=== PATIENT | female | born 1960 | race Caucasian/White ===

== ENCOUNTER 2024-01-22 14:22 | Outpatient (AMB) | payer OTHER, SELFPAY ==
--- NOTE | 2024-01-22 14:32 | MHC.OFFVIS ---
Vital Signs 01/22/24 14:49 Height 5 ft 1 in Weight 210 lb BMI 39.7 BP 122/80 Blood Pressure Location Lt brachial Position Sitting Respiration 16 Pulse 91 Pulse Source Pulse Oximeter Pulse Oximetry (%) 95 Oxygen Delivery Method Room Air Intake Visit Reasons: Acute bilateral low back pain Intake Note: Patient comes in for initial visit was referred by Adriane Knapp primary care. Reports pain 3/10. Allergies propranolol Allergy (Verified 01/22/24 14:51) Swelling HPI Comments Details: Margie is very pleasant 63 years old female who presented in my office today with complain on pain in the lower back in the projection of the central the lumbar spine as well pain in the projection of the sacral bone. She reported that all this pains are started 2 months ago. She reported that the pain started because she fell on the ground. She reports that the pain is most severe when she is standing and flexing forward. She is able to sleep normally because of her pain she can do activities of daily living, she can take care of herself, she can function normally. She reports her pain today is 3/10. She reports her pain might be severe from time to time and reaching 7 and day 8/10. 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 She reports that weather changes in movements aggravate her pain. She reports pain less severe when she is horizontal in bed and sleeping. In terms of tissue damage he reports her pain as pulsing and pounding, jumping and shooting, pinching and crushing, tugging and wrenching, tingling and stinging, dull, hurting, heavy, tiring and exhausting, spreading and piercing sensation. She went for physical therapy and chiropractic manipulations to help her pain. She reports some plus-minus pain relief but it does not last long. She never had any injections for the pain. She had x-ray of the lumbar spine which is not available to me however according to the referral note she has compression fracture of L4 on this x-ray. She reports complains on headaches history of stroke 2 years ago history of gallstones and arthritis. Her past surgical history significant for tubal ligation nasal surgery and carpal tunnel for both hands. She stopped smoking cigarettes 35 years ago. She does not drink alcohol. She drinks 4-5 cups of coffee a day. She denies recreational drugs. [facility] Social History (Updated 01/22/24 @ 14:44 by Magda Fuentes) Alcohol intake: current Patient Tobacco Use Status: Never used Tobacco Review of Systems Const All systems reviewed & are unremarkable except as noted in HPI and below ENT Reports Normal hearing present Card Reports no additional complaints Resp Reports no additional complaints GI Reports no additional complaints Reports no additional complaints Musc Reports as per HPI Neuro Reports no additional complaints, Reports Normal hearing present, Denies Abnormal speech present, Denies confusion and Denies Sensory deficit (Neuro) Psych Reports no additional complaints and Denies confusion Endo Reports no additional complaints Physical Exam Vital Signs: Last Vital Signs Pulse 91 01/22/24 14:49 Resp 16 01/22/24 14:49 BP 122/80 01/22/24 14:49 Pulse Ox 95 01/22/24 14:49 Oxygen Delivery Method Room Air 01/22/24 14:49 BMI result Body Mass Index 39.7 Const General: no acute distress; No confusion Nutritional Appearance: obese morbidly obese Orientation/consciousness: patient oriented x3 and No confusion Eyes General: appearance normal, both eyes and all related structures Pupils: Equal, round and reactive pupils present EOM: EOMs intact bilaterally Neck Neck: Yes full ROM Chest Chest palpation & inspection: normal inspection of the chest Resp Effort & Inspection: normal respiratory effort, able to speak in complete sentences, normal respiratory pattern, no audible wheezes and no cough Cardio Jugular venous distension: no JVD GI Inspection: Yes normal to inspection Back/Spine/Pelvis Other: On physical exam she is able to flex herself backwards with minimal difficulty and she is able to flex forward however experience severe pain on flexing forward. Able to walk on bilateral tiptoes in bilateral heels demonstrating normal strength of bilateral lower extremities. Rolf test is positive on the bilateral, pelvic compression test is positive bilaterally, pelvic distraction test is positive bilaterally. Fourteen finger test is positive bilaterally. Percussion of the projection of L4 vertebral results in severe pain. Tenderness on palpation on the entire lumbar spine. Valsalva maneuver is positive on pain increase in lumbar spine.. Neuro General: patient oriented x3, gait normal and No confusion Cranial nerves: Yes CN's II-XII intact bilaterally, Yes Equal, round and reactive pupils present, Yes Normal hearing present and Yes Ability to bilaterally elevate shoulders present Speech: No Abnormal speech present Gait exam (Neuro): Normal gait present Motor exam (neuro): 5/5 motor strength present throughout Sensory Exam: No Sensory deficit (Neuro) Extrem General: No pedal edema Psych Speech and movement: Normal speech and movement present Affect: normal affect Attitude: cooperative Thought process: Normal thought process present Thought content: Normal thought content present Insight: Good insight present (Psych) Judgement: Good judgement present (Psych) Assessment & Plan Assessment & Plan (1) Compression fracture of L4 vertebra: Code(s): S32.040A - Wedge compression fracture of fourth lumbar vertebra, initial encounter for closed fracture Category: Medical (2) Sacroiliitis: Code(s): M46.1 - Sacroiliitis, not elsewhere classified Category: Medical (3) Sacroiliac joint dysfunction of both sides: Code(s): M53.3 - Sacrococcygeal disorders, not elsewhere classified Category: Medical Plan Because she has probably subacute fracture of the lumbar L4 vertebra I will send her for urgent MRI of the lumbar spine. If the MRI will demonstrate fresh edema I will schedule her for kyphoplasty L4. At the same time I will schedule the patient for bilateral diagnostic sacroiliac joint injection. If sacroiliac joint injection will help this patient I will discuss with her different ways to treat her sacroiliac joint pain. The patient has sacroiliac joint belt at home and on the advice of her chiropractor she started to wear it. I recommended her to wear it 247. I will see this patient either after the sacroiliac joint injection or we will invite her for kyphoplasty L4 if it is demonstrated able on the MRI. Orders: Orders MR lumbar spine wo con Today S32.040A - Wedge compression fracture of fourth lumbar vertebra, initial encounter for closed fracture Coding Level of Care Code New Pt Level 3 (72086) Diagnoses Compression fracture of L4 vertebra S32.040A Sacroiliitis M46.1 Sacroiliac joint dysfunction of both sides M53.3
[2024-01-22 14:49] VITALS: BP 122/80; PULSE 91; RESP 16; O2SAT 95; BMI 39.7
== END 2024-01-22 15:07 | disposition home or self-care (01) ==
PROVIDERS: PCP Nurse Practitioner Family; Visit Provider Anesthesiology
DX: S32.040A Wedge compression fracture of fourth lumbar vertebra, initial encounter for closed fracture (principal); M46.1 Sacroiliitis, not elsewhere classified; M53.3 Sacrococcygeal disorders, not elsewhere classified
CPT/HCPCS: 99203

== ENCOUNTER → 2024-01-22 14:22 | Outpatient (BNVA) | payer OTHER, SELFPAY | PROVIDERS: PCP Nurse Practitioner Family; Visit Provider Anesthesiology ==

== ENCOUNTER 2024-01-29 15:43 | Outpatient (REF) | payer OTHER, SELFPAY ==
--- NOTE | ~2024-01-29 | XR_ITS ---
EXAMINATION: PRE-MRI ORBITS CLINICAL INFORMATION: Pre-MRI screening. COMPARISON: None available. TECHNIQUE: 2 views of the orbits. FINDINGS: No radiopaque metallic foreign body appreciated in the region of the orbits. XR/XR pre mri screening IMPRESSION: No radiopaque metallic foreign body appreciated in the region of the orbits. This study was presented today 01/30/2024 for interpretation. Stat results provided at this time as requested by referring provider. Electronically signed by: Latisha Teague MD 01/30/2024 07:27 AM EDT RP
== END 2024-01-29 15:44 | disposition home or self-care (01) ==
LOC: HO.XRAY 15:43
PROVIDERS: PCP Nurse Practitioner Family; Visit Provider Anesthesiology
DX: Z13.89 Encounter for screening for other disorder (principal)

== ENCOUNTER 2024-02-04 14:06 | Outpatient (REF) | payer OTHER, SELFPAY ==
--- NOTE | ~2024-02-04 | MR_ITS ---
EXAMINATION: MR LUMBAR SPINE WITHOUT CONTRAST CLINICAL INFORMATION: Lumbar compression fracture COMPARISON: None available. TECHNIQUE: MRI of the lumbar spine was obtained using routine sequences without contrast. FINDINGS: Levoscoliosis of the lumbar spine. 5 mm of anterolisthesis at L4-L5. There is chronic mild compression of superior endplate of L4. The remainder of the vertebral body heights are maintained. Bone marrow is unremarkable in signal. The conus medullaris is normal in signal and terminates at the L1-L2 level. Prevertebral and paraspinal soft tissues are unremarkable. SIGNIFICANT FINDINGS BY LEVEL: T12-L1: No disc bulge or herniation. No significant spinal canal or foraminal stenosis. L1-L2: Mild disc bulge. No significant spinal canal or foraminal stenosis. L2-L3: Disc bulge and mild right facet arthropathy results in moderate-severe right foraminal stenosis and mild left foraminal stenosis. No significant spinal canal stenosis. L3-L4: Broad-based disc bulge results in severe right foraminal stenosis and mild left foraminal stenosis. No canal stenosis. L4-L5: Broad-based disc bulge, ligamentum flavum hypertrophy, and facet arthropathy results in mild canal stenosis, severe left foraminal stenosis, and moderate right foraminal stenosis. L5-S1: Broad-based disc bulge, facet arthropathy, and ligamentum flavum hypertrophy results in severe left foraminal stenosis. No significant canal or right foraminal stenosis. MR/MR lumbar spine wo con IMPRESSION: 1. Chronic mild compression of superior endplate of L4. 2. Multilevel degenerative disease of the lumbar spine with moderate-severe right foraminal stenosis at L2-L3 and L3-L4 and severe left foraminal stenosis at L4-L5 and L5-S1. Electronically signed by: Orquidea Yates MD 02/04/2024 05:39 PM [facility] [place]
== END 2024-02-04 14:07 | disposition home or self-care (01) ==
LOC: HO.MRI 14:06
PROVIDERS: PCP Nurse Practitioner Family; Visit Provider Anesthesiology
DX: S32.040A Wedge compression fracture of fourth lumbar vertebra, initial encounter for closed fracture (principal)
CPT/HCPCS: 72148

== ENCOUNTER 2024-02-14 14:23 | Outpatient (AMB) | payer OTHER, SELFPAY ==
--- NOTE | 2024-02-14 14:48 | A.OFFVIS_ITS ---
Vital Signs 02/14/24 14:54 Height 5 ft 1 in Weight 209 lb BMI 39.5 BP 132/72 Blood Pressure Location Lt brachial Position Sitting Respiration 16 Pulse 83 Pulse Source Pulse Oximeter Pulse Oximetry (%) 98 Oxygen Delivery Method Room Air Intake Visit Reasons: Discuss MRI Results Intake Note: Patient comes in to discuss MRI results. Reports pain /10. Allergies propranolol Allergy (Verified 02/14/24 14:54) Swelling HPI Comments Details: Margie is back in my office with the results of the MRI. The MRI dictated as below. There are multiple changes on the MRI including compression fracture of L4. The L4 compression fracture unfortunately is completely healed and unamenable to kyphoplasty. This is the area of her body where she complains on most of her pain. She was examined last time and sacroiliac joint injection was offered for her. She is scheduled for this procedure to diagnose or reject the idea that sacroiliac joint is the cause of her pain. There is also changes on L2-L3 and L3-L4 foramina is on the right were there is significant stenosis. We can try to perform transforaminal epidural steroid injections at those levels to alleviate the pain in the upper back with tingling sensation in the anterior thigh on the right. There is also possibility to try diagnose medial branch block L3-L4 dorsal ramus L5 and maybe this location will be proven to be her pain generators. [facility] Social History (Updated 01/22/24 @ 14:44 by Magda Fuentes) Alcohol intake: current Patient Tobacco Use Status: Never used Tobacco Review of Systems Const All systems reviewed & are unremarkable except as noted in HPI and below ENT Reports Normal hearing present Neuro Reports Normal hearing present, Denies Abnormal speech present, Denies confusion and Denies Sensory deficit (Neuro) Psych Denies confusion Physical Exam Vital Signs: Last Vital Signs Pulse 83 02/14/24 14:54 Resp 16 02/14/24 14:54 BP 132/72 02/14/24 14:54 Pulse Ox 98 02/14/24 14:54 Oxygen Delivery Method Room Air 02/14/24 14:54 BMI result Body Mass Index 39.5 Const General: no acute distress; No confusion Nutritional Appearance: obese morbidly obese Orientation/consciousness: patient oriented x3 and No confusion Eyes General: appearance normal, both eyes and all related structures Pupils: Equal, round and reactive pupils present EOM: EOMs intact bilaterally Neck Neck: Yes full ROM Chest Chest palpation & inspection: normal inspection of the chest Resp Effort & Inspection: normal respiratory effort, able to speak in complete sentences, normal respiratory pattern, no audible wheezes and no cough Cardio Jugular venous distension: no JVD GI Inspection: Yes normal to inspection Back/Spine/Pelvis Other: On physical exam she is able to flex herself backwards with minimal difficulty and she is able to flex forward however experience severe pain on flexing forward. Able to walk on bilateral tiptoes in bilateral heels demonstrating normal strength of bilateral lower extremities. Rolf test is positive on the bilateral, pelvic compression test is positive bilaterally, pelvic distraction test is positive bilaterally. Fourteen finger test is positive bilaterally. Percussion of the projection of L4 vertebral results in severe pain. Tenderness on palpation on the entire lumbar spine. Valsalva maneuver is positive on pain increase in lumbar spine.. Neuro General: patient oriented x3, gait normal and No confusion Cranial nerves: Yes CN's II-XII intact bilaterally, Yes Equal, round and reactive pupils present, Yes Normal hearing present and Yes Ability to bilaterally elevate shoulders present Speech: No Abnormal speech present Gait exam (Neuro): Normal gait present Motor exam (neuro): 5/5 motor strength present throughout Sensory Exam: No Sensory deficit (Neuro) Extrem General: No pedal edema Psych Speech and movement: Normal speech and movement present Affect: normal affect Attitude: cooperative Thought process: Normal thought process present Thought content: Normal thought content present Insight: Good insight present (Psych) Judgement: Good judgement present (Psych) Results Reviewed Results Reviewed: MR LUMBAR SPINE WITHOUT CONTRAST Levoscoliosis of the lumbar spine. 5 mm of anterolisthesis at L4-L5. There is chronic mild compression of superior endplate of L4. The remainder of the vertebral body heights are maintained. Bone marrow is unremarkable in signal. The conus medullaris is normal in signal and terminates at the L1-L2 level. Prevertebral and paraspinal soft tissues are unremarkable. SIGNIFICANT FINDINGS BY LEVEL: T12-L1: No disc bulge or herniation. No significant spinal canal or foraminal stenosis. L1-L2: Mild disc bulge. No significant spinal canal or foraminal stenosis. L2-L3: Disc bulge and mild right facet arthropathy results in moderate-severe right foraminal stenosis and mild left foraminal stenosis. No significant spinal canal stenosis. L3-L4: Broad-based disc bulge results in severe right foraminal stenosis and mild left foraminal stenosis. No canal stenosis. L4-L5: Broad-based disc bulge, ligamentum flavum hypertrophy, and facet arthropathy results in mild canal stenosis, severe left foraminal stenosis, and moderate right foraminal stenosis. L5-S1: Broad-based disc bulge, facet arthropathy, and ligamentum flavum hypertrophy results in severe left foraminal stenosis. No significant canal or right foraminal stenosis. IMPRESSION: 1. Chronic mild compression of superior endplate of L4. 2. Multilevel degenerative disease of the lumbar spine with moderate-severe right foraminal stenosis at L2-L3 and L3-L4 and severe left foraminal stenosis at L4-L5 and L5-S1. Assessment & Plan Assessment & Plan (1) Compression fracture of L4 vertebra: Code(s): S32.040A - Wedge compression fracture of fourth lumbar vertebra, initial encounter for closed fracture Category: Medical (2) Sacroiliitis: Code(s): M46.1 - Sacroiliitis, not elsewhere classified Category: Medical (3) Sacroiliac joint dysfunction of both sides: Code(s): M53.3 - Sacrococcygeal disorders, not elsewhere classified Category: Medical (4) Spondylosis of lumbar region without myelopathy or radiculopathy: Code(s): M47.816 - Spondylosis without myelopathy or radiculopathy, lumbar region Category: Medical (5) Disc degeneration, lumbar: Code(s): M51.369 - Other intervertebral disc degeneration, lumbar region without mention of lumbar back pain or lower extremity pain Category: Medical (6) Radiculopathy, lumbar region: Code(s): M54.16 - Radiculopathy, lumbar region Category: Medical (7) Chronic pain syndrome: Code(s): G89.4 - Chronic pain syndrome Category: Medical Plan She is already scheduled for bilateral diagnostic sacroiliac joint injection. If this will not help the axial low back pain next step will be diagnose medial branch block L3, L4, dorsal ramus L5. On the MRI as above there are some severe foraminal stenosis on the right L2-L3 L3-L4. She complains on tingling sensation on the right thigh. She complains on pain in the projection of the upper lumbar spine as well. This could be a target of the diagnostic as well as therapeutic transforaminal L2-L3/L3-L4 epidural steroid injection. Unfortunately the compression fracture of L4 can not be treated anymore with kyphoplasty because it is completely healed. If the injections as above will not be helpful the pain of the patient can be addressed with neuromodulation. Patient Instructions: I here by testify that I spent 32 minutes in conversation with this patient as well as evaluating her prior records and prior diagnostic studies as well as diogo luating images of the MRI as well as planning her care and organizing this note. Coding Level of Care Code Est Pt Level 4 (15978) Diagnoses Compression fracture of L4 vertebra S32.040A Sacroiliitis M46.1 Sacroiliac joint dysfunction of both sides M53.3 Spondylosis of lumbar region without myelopathy or radiculopathy M47.816 Disc degeneration, lumbar M51.369 Radiculopathy, lumbar region M54.16 Chronic pain syndrome G89.4
[2024-02-14 14:54] VITALS: BP 132/72; PULSE 83; RESP 16; O2SAT 98; BMI 39.5
== END 2024-02-14 16:07 | disposition home or self-care (01) ==
PROVIDERS: PCP Nurse Practitioner Family; Visit Provider Anesthesiology
DX: S32.040A Wedge compression fracture of fourth lumbar vertebra, initial encounter for closed fracture (principal); M46.1 Sacroiliitis, not elsewhere classified; M53.3 Sacrococcygeal disorders, not elsewhere classified; M47.816 Spondylosis without myelopathy or radiculopathy, lumbar region; M51.369 Other intervertebral disc degeneration, lumbar region without mention of lumbar back pain or lower extremity pain; M54.16 Radiculopathy, lumbar region; G89.4 Chronic pain syndrome
CPT/HCPCS: 99214

== ENCOUNTER 2024-03-12 06:04 | Outpatient (REF) | payer OTHER, SELFPAY ==
--- OUTSIDE RECORDS SUMMARY | 2024-03-13 18:22 | XMS_ITS | Continuity of Care Document ---
Author Organization [facility] Address [address] [place] [address] ve [address] [place] [address]- Care Team Providers Care Debeaker Name Role Phone Becca PIZARRO, Krama Bowen Primary Care Physician Encounter [facility] [place] Date(s): 02/16/24 - 02/23/[address] [place] [address]- Attending Physician: Leticia Trejo RD Encounter Type: Office Visit Allergies, Adverse Reactions, Alerts Substance Criticality Severity Reaction Reaction Severity Status propranolol facial swelling Ac tive acetaminophen-hydrocodo ne Angioedema Active Animal Dander Active Pollen Active Dust Active Medications aspirin 81 mg oral capsule 1 capsule = 81 mg, By Mouth, Every 24 hours, 0 Refills, Maintenance, 01/29/24 2:46:00 PM EDT, Partial fill upon patient request if the prescription is for a schedule II opioid drug. Start Date: 01/29/24 Status: Ordered Repeat number: 1 atorvastatin 20 mg oral tablet 1 tablet = 20 mg, By Mouth, Daily at bedtime, 0 Refills, Maintenance, 07/22/22 11:42:00 AM EDT, Partial fill upon patient request if the prescription is for a schedule II opioid drug. Start Date: 07/22/22 Status: Ordered Repeat number: 1 Biotin By Mouth, Daily, 0 Refills, Maintenance, 01/29/24 2:45:00 PM EDT, Partial fill upon patient requestif the prescription is for a schedule II opioid drug. Start Date: 01/29/24 Status: Ordered Repeat number: 1 Cetirizine 0 Refills, Maintenance, 07/05/22 2:28:00 PM EDT, Partial fill upon patient request if the prescription is for a schedule II opioid drug. Start Date: 07/05/22 Status: Ordered Repeat number: 1 Fluoxetine = 80 mg, By Mouth, Daily at bedtime, 0 Refills, Maintenance, 11/22/22 2:41:00 PM EDT, Partial fill upon patient request if the prescription is for a schedule II opioid drug. Start Date: 11/22/22 Status: Ordered Repeat number: 1 Multivitamin 0 Refills, Maintenance, 01/29/24 2:45:00 PM EDT, Partial fill upon patient request if the prescription is for a schedule II opioid drug. Start Date: 01/29/24 Status: Ordered Repeat number: 1 oxyCODONE 5 mg oral tablet 5 mg, By Mouth, Every 6 hours, PRN, # 12 tablet, Refills 0, Tot. Refills 0, Soft Stop, Pain , Moderate, 03/21/23 8:41:00 AM EST, Route to Pharmacy Electronically, [facility] #[id number], Partial fill upon patient request if the prescription is for a schedule II opioid drug., 158, cm, 03/21/23 6:10:00 EST, Height, 89.2, kg, 03/21/23 6:10:00 EST, Dry Weight Start Date: 03/21/23 Status: Ordered Quantity: 12.0 Unit: tablet Repeat number: 1 pantoprazole 40 mg oral delayed release tablet 1 tablet = 40 mg, By Mouth, 2 times a day, # 60 tablet, 3 Refills, Maintenance, 01/29/24 3:21:00 PMEDT, CR Tablet, 161, cm, 01/29/24 14:47:00 EDT, Height, 89.2, kg, 03/21/23 6:10:00 EST, Dry Weight Start Date: 01/29/24 Status: Ordered Quantity: 60.0 Unit: tablet Repeat number: 4 Suprep Bowel Prep Kit oral liquid 354 mL, By Mouth, Once, 177ml the night prior to colonoscopy and 177ml the morning of. Please follow split dose instructions on the box., # 354 mL, 0 Refills, Soft Stop, 07/22/22 11:56:00 AM EDT, [facility] #[id number], Partial fill upon patient request if the prescription is for a schedule II opioid drug., 354 mL By Mouth Once,Instr:177ml the night prior to colonoscopy and 177ml the morning of. Please follow split dose instructions on the box. Start Date: 07/22/22 Status: Ordered Quantity: 354.0 Unit: mL Repeat number: 1 Tylenol 8 Hour Geltab = 1,300 mg, By Mouth, Every 8 hours, 0 Refills, Maintenance, 01/29/24 2:47:00 PM EDT, Partial fill upon patient request if the prescription is for a schedule II opioid drug. Start Date: 01/29/24 Status: Ordered Repeat number: 1 Vitamin B12 1000 mcg oral tablet 1 tablet = 1,000 mcg, By Mouth, Daily, 0 Refills, Maintenance, 03/17/23 3:27:00 PM EST, Partial fill upon patient request if the prescription is for a schedule II opioid drug. Start Date: 03/17/23 Status: Ordered Repeat number: 1 Vitamin D3 1000 intl units oral tablet 1 tablet = 25 mcg, By Mouth, Daily, 0 Refills, Maintenance, 09/13/23 1:23:00 PM EDT, Partial fill upon patient request if the prescription is for a schedule II opioid drug. Start Date: 09/13/23 Status: Ordered Repeat number: 1 Zantac 0 Refills, Maintenance, 01/29/24 2:46:00 PM EDT, Partial fill upon patient request if the prescription is for a schedule II opioid drug. Start Date: 01/29/24 Status: Ordered Repeat number: 1 Problem List Condition Confirmation Course Effective Dates Status H ealth Status Informant Cholelithiasis Confirmed Active GERD (gastroesophageal reflux disease) Confirmed Active Hiatal hernia with GERD Confirmed Active History of stroke Confirmed Active Hyperlipidemia Confirmed Active Severe obesity (BMI 35.0-39.9) with comorbidity Confirmed Active Sleep apnea Confirmed Active Fatty liver Confirmed Active Vital Signs Most recent to oldest [Reference Range]: 1 Height 161 cm (02/16/24 1:46 PM) Weight 96.3 kg (02/16/24 1:46 PM) Body Mass Index [18.5-24.99 kg/m2] 37.15 kg/m2 *>HHI* (02/16/24 1:46 PM) Social History Social History Type Response Smoking Status Never (less than 100 in lifetime) entered on: 01/26/23 Sex Sex Representation Female (finding) Patient Care team information Care Team Personnel Name: Karma Hudson NP Position: S Outreach Member Role: PCP Address: [address] [place] [address] [address] [place] [address]- Telecom: Care Team Related Persons Name: DAYANA VEE Insurance Providers Guarantor name: VIJAYA GUY Health Plan Information #: 1 Payer: [facility] [employer] NON BHP HMO Member Number: [id number] Policy Number: NA Group Number: [id number] Health Plan Information #: 2 Payer: [facility] FF NON BHP HMO Member Number: [id number] Policy Number: NA Group Number: NA
== END 2024-03-12 06:05 | disposition home or self-care (01) ==
LOC: CF 06:04
PROVIDERS: Visit Provider Anesthesiology
DX: M46.1 Sacroiliitis, not elsewhere classified (principal); M53.3 Sacrococcygeal disorders, not elsewhere classified; M47.816 Spondylosis without myelopathy or radiculopathy, lumbar region; M51.369 Other intervertebral disc degeneration, lumbar region without mention of lumbar back pain or lower extremity pain; M54.16 Radiculopathy, lumbar region; G89.4 Chronic pain syndrome; S32.040A Wedge compression fracture of fourth lumbar vertebra, initial encounter for closed fracture; X58.XXXA Exposure to other specified factors, initial encounter; Y93.9 Activity, unspecified; Y92.9 Unspecified place or not applicable; Y99.9 Unspecified external cause status
CPT/HCPCS: 27096; J2003; J2795; Q9967

== ENCOUNTER 2024-03-12 07:01 | Outpatient (AMB) | payer OTHER, SELFPAY ==
[2024-03-12 07:13] VITALS: BP 108/76; PULSE 76; RESP 15; O2SAT 97
--- NOTE | 2024-03-12 07:13 | MHC.OFFVIS ---
Vital Signs 03/12/24 07:13 03/12/24 08:06 BP 108/76 118/76 Blood Pressure Location Lt brachial Lt brachial Position Sitting Sitting Respiration 15 16 Pulse 76 83 Pulse Source Pulse Oximeter Pulse Oximeter Pulse Oximetry (%) 97 96 Oxygen Delivery Method Room Air Room Air Intake Visit Reasons: BILATERAL DIAGNOSTIC SIJ INJECTIONS Allergies propranolol Allergy (Verified 03/12/24 07:14) Swelling Medication List - Last Reconciled 03/12/24 by Belinda Landers LPN aspirin (Adult Aspirin Regimen) 81 mg PO DAILY atorvastatin 80 mg PO DAILY famotidine (Zantac-360 (famotidine)) 20 mg PO DAILY oxycodone 5 mg PO QID PRN PFSH Social History (Updated 01/22/24 @ 14:44 by Magda Fuentes) Alcohol intake: current Patient Tobacco Use Status: Never used Tobacco Physical Exam Vital Signs: Last Vital Signs Pulse 76 03/12/24 07:13 Resp 15 03/12/24 07:13 BP 108/76 03/12/24 07:13 Pulse Ox 97 03/12/24 07:13 Oxygen Delivery Method Room Air 03/12/24 07:13 Assessment & Plan Assessment & Plan (1) Compression fracture of L4 vertebra: Code(s): S32.040A - Wedge compression fracture of fourth lumbar vertebra, initial encounter for closed fracture Category: Medical (2) Sacroiliitis: Code(s): M46.1 - Sacroiliitis, not elsewhere classified Category: Medical (3) Sacroiliac joint dysfunction of both sides: Code(s): M53.3 - Sacrococcygeal disorders, not elsewhere classified Category: Medical Plan: Bilateral diagnostic sacroiliac joint injection Informed consent was explained thoroughly to the patient.? All questions about benefits and risks for the procedure were answered. Patient came to the operating room and was positioned prone on the operating table with the pillow under the pelvis.? The lower back and buttocks of the patient were prepped with ChloraPrep prepped and draped with sterile utility towels.? Sterilely draped C-arm was brought over the operating field and sq picture of patient's pelvis was demonstrated on the screen.? For the right joint tilting C-arm contralateral to the site of the joint the most posterior portion of the joints was superimposed with anterior silhouette of the joint.? Skin was injected in the projection of the joint slightly medial to the location of the joint with 25 gauge 1/2 inch needle using local lidocaine 2% . After that 22 gauge 3 and 1/2 inch needle was driven to the right joint in tunnel vision fashion.? When needle entered the joint capsule injection of the contrast was performed demonstrating intra-articular and minimally periarticular spread of the contrast.? After that 5 cc. of ropivacaine 0.5% was injected into the right joint.? Upon completion of the injections needle was removed .? the procedure was repeated on the left side in mirroring fashion. Needle was removed and sterile dressing was applied. Sterile dressing was applied.? Upon completion of the injection patient was taken outside of the operating room to the recovery room where recovered uneventful (4) Spondylosis of lumbar region without myelopathy or radiculopathy: Code(s): M47.816 - Spondylosis without myelopathy or radiculopathy, lumbar region Category: Medical (5) Disc degeneration, lumbar: Code(s): M51.369 - Other intervertebral disc degeneration, lumbar region without mention of lumbar back pain or lower extremity pain Category: Medical (6) Radiculopathy, lumbar region: Code(s): M54.16 - Radiculopathy, lumbar region Category: Medical (7) Chronic pain syndrome: Code(s): G89.4 - Chronic pain syndrome Category: Medical Plan See as above Orders: Orders FL guidance in treatment room Today M53.3 - Sacrococcygeal disorders, not elsewhere classified Coding Level of Care Code Procedure Only Diagnoses Compression fracture of L4 vertebra S32.040A Sacroiliitis M46.1 Sacroiliac joint dysfunction of both sides M53.3 Spondylosis of lumbar region without myelopathy or radiculopathy M47.816 Disc degeneration, lumbar M51.369 Radiculopathy, lumbar region M54.16 Chronic pain syndrome G89.4
[2024-03-12 08:06] VITALS: BP 118/76; PULSE 83; RESP 16; O2SAT 96
== END 2024-03-12 08:02 | disposition home or self-care (01) ==
LOC: HO.PMCPRC 07:01
PROVIDERS: PCP Nurse Practitioner Family; Visit Provider Anesthesiology
DX: M46.1 Sacroiliitis, not elsewhere classified (principal); M53.3 Sacrococcygeal disorders, not elsewhere classified
CPT/HCPCS: 27096

== ENCOUNTER 2024-03-18 14:09 | Outpatient (AMB) | payer OTHER, SELFPAY ==
--- OUTSIDE RECORDS SUMMARY | 2024-03-18 14:12 | XMS_ITS | Continuity of Care Document ---
Author Organization [facility] Address [address] [place] [address] [address] [place] [address]- Care Team Providers Care Repairer Screen Crusher Name Role Phone Becca PIZARRO, Karma Bowen Primary Care Physician [phone] Encounter [facility] [place] Date(s): 02/16/24 - 03/17/[address] [place] [address]- Attending Physician: Raquel Forman Admitting Physician: AdmRaquel jo Referring Physician: Admtr [id number] Encounter Type: Triage Allergies, Adverse Reactions, Alerts Substance Criticality Severity Reaction Reaction Severity Status propranolol facial swelling Ac tive Animal Dander Active Pollen Active acetaminophen-hydrocodo ne Angioedema Active Dust Active Medications aspirin 81 mg [...] EST, Route to Pharmacy Electronically, [facility] #[id number], Partial fill upon patient request if the [...] Soft Stop, 07/22/22 11:56:00 AM EDT, [facility] #[id number], Partial fill upon patient request if the [...] apnea Confirmed Active Fatty liver Confirmed Active Social History Social History Type Response Smoking Status Never (less than 100 in lifetime) entered on: 01/26/23 Sex Sex Representation Female (finding) Patient Care team information Care Team Personnel Name: Karma Hudson NP Position: [facility] Outreach Member Role: PCP Address: [address] [place], [place] [address] [place] [address]- Telecom: Care Team Related Persons Name: DAYANA VEE Insurance Providers Guarantor name: IVJAYA [facility] Health Plan Information #: 1 Payer: [facility] NON P HMO Member Number: NA Policy Number: NA Group Number: NA
--- NOTE | 2024-03-18 14:24 | MHC.OFFVIS ---
Vital Signs 03/18/24 14:25 Height 5 ft 1 in Weight 209 lb BMI 39.5 BP 129/66 Blood Pressure Location Lt brachial Position Sitting Respiration 17 Pulse 87 Pulse Source Pulse Oximeter Pulse Oximetry (%) 96 Oxygen Delivery Method Room Air Intake Visit Reasons: BILATERAL DIAGNOSTICV SIJ INJECTIONS Allergies propranolol Allergy (Verified 03/18/24 14:27) Swelling Medication List - Last Reconciled 03/18/24 by Belinda Landers LPN aspirin (Adult Aspirin Regimen) 81 mg PO DAILY atorvastatin 80 mg PO DAILY famotidine (Zantac-360 (famotidine)) 20 mg PO DAILY HPI Comments Details: Margie is back in my office after diagnostic bilateral sacroiliac joint injection. She received diagnostic injection and reported no pain for the next 5-6 hours after the procedure. She reports improved mobility she was able to perform for job with better mobility and better activities of daily living. She is interested in performing bilateral therapeutic sacroiliac joint injection. Her primary care physician referred her for a study of bone density test. Osteoporosis is suspected. This should be taken into consideration with future sacroiliac joint injections however at this time I believe we can proceed with bilateral therapeutic sacroiliac joint injection. Results of the MRI: There are multiple changes on the MRI including compression fracture of L4. The L4 compression fracture unfortunately is completely healed and unamenable to kyphoplasty. This is the area of her body where she complains on most of her pain. She was examined last time and sacroiliac joint injection was offered for her. She is scheduled for this procedure to diagnose or reject the idea that sacroiliac joint is the cause of her pain. There is also changes on L2-L3 and L3-L4 foramina is on the right were there is significant stenosis. We can try to perform transforaminal epidural steroid injections at those levels to alleviate the pain in the upper back with tingling sensation in the anterior thigh on the right. There is also possibility to try diagnose medial branch block L3-L4 dorsal ramus L5 and maybe this location will be proven to be her pain generators. [facility] Social History (Updated 01/22/24 @ 14:44 by Magda Fuentes) Alcohol intake: current Patient Tobacco Use Status: Never used Tobacco Review of Systems Const All systems reviewed & are unremarkable except as noted in HPI and below ENT Reports Normal hearing present Neuro Reports Normal hearing present, Denies Abnormal speech present, Denies confusion and Denies Sensory deficit (Neuro) Psych Denies confusion Physical Exam Vital Signs: Last Vital Signs Pulse 87 03/18/24 14:25 Resp 17 03/18/24 14:25 BP 129/66 03/18/24 14:25 Pulse Ox 96 03/18/24 14:25 Oxygen Delivery Method Room Air 03/18/24 14:25 BMI result Body Mass Index 39.5 Const General: no acute distress; No confusion Nutritional Appearance: obese morbidly obese Orientation/consciousness: patient oriented x3 and No confusion Eyes General: appearance normal, both eyes and all related structures Pupils: Equal, round and reactive pupils present EOM: EOMs intact bilaterally Neck Neck: Yes full ROM Chest Chest palpation & inspection: normal inspection of the chest Resp Effort & Inspection: normal respiratory effort, able to speak in complete sentences, normal respiratory pattern, no audible wheezes and no cough Cardio Jugular venous distension: no JVD GI Inspection: Yes normal to inspection Back/Spine/Pelvis Other: On physical exam she is able to flex herself backwards with minimal difficulty and she is able to flex forward however experience severe pain on flexing forward. Able to walk on bilateral tiptoes in bilateral heels demonstrating normal strength of bilateral lower extremities. Rolf test is positive on the bilateral, pelvic compression test is positive bilaterally, pelvic distraction test is positive bilaterally. Fourteen finger test is positive bilaterally. Percussion of the projection of L4 vertebral results in severe pain. Tenderness on palpation on the entire lumbar spine. Valsalva maneuver is positive on pain increase in lumbar spine.. Neuro General: patient oriented x3, gait normal and No confusion Cranial nerves: Yes CN's II-XII intact bilaterally, Yes Equal, round and reactive pupils present, Yes Normal hearing present and Yes Ability to bilaterally elevate shoulders present Speech: No Abnormal speech present Gait exam (Neuro): Normal gait present Motor exam (neuro): 5/5 motor strength present throughout Sensory Exam: No Sensory deficit (Neuro) Extrem General: No pedal edema Psych Speech and movement: Normal speech and movement present Affect: normal affect Attitude: cooperative Thought process: Normal thought process present Thought content: Normal thought content present Insight: Good insight present (Psych) Judgement: Good judgement present (Psych) Results Reviewed Results Reviewed: MR LUMBAR SPINE WITHOUT CONTRAST Levoscoliosis of the lumbar spine. 5 mm of anterolisthesis at L4-L5. There is chronic mild compression of superior endplate of L4. The remainder of the vertebral body heights are maintained. Bone marrow is unremarkable in signal. The conus medullaris is normal in signal and terminates at the L1-L2 level. Prevertebral and paraspinal soft tissues are unremarkable. SIGNIFICANT FINDINGS BY LEVEL: T12-L1: No disc bulge or herniation. No significant spinal canal or foraminal stenosis. L1-L2: Mild disc bulge. No significant spinal canal or foraminal stenosis. L2-L3: Disc bulge and mild right facet arthropathy results in moderate-severe right foraminal stenosis and mild left foraminal stenosis. No significant spinal canal stenosis. L3-L4: Broad-based disc bulge results in severe right foraminal stenosis and mild left foraminal stenosis. No canal stenosis. L4-L5: Broad-based disc bulge, ligamentum flavum hypertrophy, and facet arthropathy results in mild canal stenosis, severe left foraminal stenosis, and moderate right foraminal stenosis. L5-S1: Broad-based disc bulge, facet arthropathy, and ligamentum flavum hypertrophy results in severe left foraminal stenosis. No significant canal or right foraminal stenosis. IMPRESSION: 1. Chronic mild compression of superior endplate of L4. 2. Multilevel degenerative disease of the lumbar spine with moderate-severe right foraminal stenosis at L2-L3 and L3-L4 and severe left foraminal stenosis at L4-L5 and L5-S1. Assessment & Plan Assessment & Plan (1) Compression fracture of L4 vertebra: Code(s): S32.040A - Wedge compression fracture of fourth lumbar vertebra, initial encounter for closed fracture Category: Medical (2) Sacroiliitis: Code(s): M46.1 - Sacroiliitis, not elsewhere classified Category: Medical (3) Sacroiliac joint dysfunction of both sides: Code(s): M53.3 - Sacrococcygeal disorders, not elsewhere classified Category: Medical (4) Spondylosis of lumbar region without myelopathy or radiculopathy: Code(s): M47.816 - Spondylosis without myelopathy or radiculopathy, lumbar region Category: Medical (5) Disc degeneration, lumbar: Code(s): M51.369 - Other intervertebral disc degeneration, lumbar region without mention of lumbar back pain or lower extremity pain Category: Medical (6) Radiculopathy, lumbar region: Code(s): M54.16 - Radiculopathy, lumbar region Category: Medical (7) Chronic pain syndrome: Code(s): G89.4 - Chronic pain syndrome Category: Medical Plan Very promising results of bilateral diagnostic sacroiliac joint injection. I can schedule her now for therapeutic sacroiliac joint injection and expect prolonged pain relief. However if pain relief will be not very long we should consider sacroiliac joint innervation stimulation curonix. 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 Diagnostic medial branch block can not be considered as well. On the MRI as above there are some severe foraminal stenosis on the right L2-L3 L3-L4. She complains on tingling sensation on the right thigh. She complains on pain in the projection of the upper lumbar spine as well. This could be a target of the diagnostic as well as therapeutic transforaminal L2-L3/L3-L4 epidural steroid injection. Unfortunately the compression fracture of L4 can not be treated anymore with kyphoplasty because it is completely healed. If the injections as above will not be helpful the pain of the patient can be addressed with neuromodulation. Patient Instructions: I here by testify that I spent 32 minutes in conversation with this patient as well as planning her care , evaluating her diagnostic studies and organizing this note. Coding Level of Care Code Est Pt Level 4 (47848) Diagnoses Compression fracture of L4 vertebra S32.040A Sacroiliitis M46.1 Sacroiliac joint dysfunction of both sides M53.3 Spondylosis of lumbar region without myelopathy or radiculopathy M47.816 Disc degeneration, lumbar M51.369 Radiculopathy, lumbar region M54.16 Chronic pain syndrome G89.4
[2024-03-18 14:25] VITALS: BP 129/66; PULSE 87; RESP 17; O2SAT 96; BMI 39.5
== END 2024-03-18 14:50 | disposition home or self-care (01) ==
PROVIDERS: PCP Nurse Practitioner Family; Visit Provider Anesthesiology
DX: M46.1 Sacroiliitis, not elsewhere classified (principal); M53.3 Sacrococcygeal disorders, not elsewhere classified; M47.816 Spondylosis without myelopathy or radiculopathy, lumbar region; S32.040A Wedge compression fracture of fourth lumbar vertebra, initial encounter for closed fracture; M51.369 Other intervertebral disc degeneration, lumbar region without mention of lumbar back pain or lower extremity pain; M54.16 Radiculopathy, lumbar region; G89.4 Chronic pain syndrome
CPT/HCPCS: 99214

== ENCOUNTER → 2024-03-18 14:09 | Outpatient (BNVA) | payer OTHER, SELFPAY | PROVIDERS: PCP Nurse Practitioner Family; Visit Provider Anesthesiology ==

== ENCOUNTER 2024-06-11 06:33 | Outpatient (REF) | payer OTHER, SELFPAY ==
--- NOTE | ~2024-06-11 | FL_ITS ---
EXAMINATION: FL GUIDANCE ONLY HISTORY: M46.1 - Sacroiliitis, not elsewhere classified COMPARISON: None available. TECHNIQUE: Fluoroscopy time: 0.2 minutes. Cumulative Dose: 4.56 mGy. DAP: 0.0710 mGym2 Images: 3. FINDINGS: Images demonstrate needles and contrast material in the regions of the bilateral sacroiliac joints. FL/FL guidance in treatment room IMPRESSION: Fluoroscopy during procedure. Please see procedure report for additional information. Electronically signed by: Osmin Hernandez MD 06/11/2024 03:56 PM EDT
--- OUTSIDE RECORDS SUMMARY | 2024-06-11 06:37 | XMS_ITS | Data Portability ---
Author Organization [facility] Address [address] [place] [address] Care Team Providers Care Dent Remover Name Role Phone TIANA MCNEIL Primary Care Provider TIANA MCNEIL Referring Provider SANDIE LUCERO Primary Care Provider Assessment Encounter Date Assessment Date Assessment LastModified by Organization Details LastModified Time 05/06/2021 05/06/2021 60 yo female with history of lap adjustable gastric band placement 2011 at [place], [place]. Patient is here today to discuss conversion to sleeve or bypass. Labs and imaging pending Nutrition referral Behavioral health referral [email or web address] Not available 05/06/2021 17:03:18 01/13/2022 01/13/2022 I evaluated the patient today. I explained her that these are not warts and they are calluses secondary to thinning of the forefoot fat pad and probably some mild deformities in the forefoot. She requested that these lesions be trimmed down and this was performed with a dermal curette to the level of healthy tissue without incident. Recommended that she utilize an emery board to maintain these from here out. She was also given metatarsal pads which should decrease pressure to the forefoot. She was shown where she can get these and how to place them. She can follow-up with me as needed. A total of _18____ minutes were spent in the care and management of the patient today, including face to face time as well as activities including but not limited to case review, counseling, education, care coordination and documentation. Time excludes separately reportable procedures. Portions of the note were dictated using [employer] software and errors may exist. Not available 01/20/2022 11:30:05 Plan of Treatment Reminders Order Date Submit Date Provider Last Modified By Organization Details Last Modified Time Details Appointments None recorded. Lab CBC 2021 022 [facility] Patient Reg, [place], [address], 20:27:10 CMP, serum or plasma 2021 022 [facility] Patient Reg, [place], [address], 21:01:16 lipid panel, serum 2021 022 [facility] Patient Reg, [place], [address], 21:01:17 25-hydroxyv itamin D2 + 25-hydroxyv itamin D3, QN, serum or plasma 2021 022 [facility] Patient Reg, [place], [id number], 21:10:43 TSH, serum, reflex free T4 2021 022 [facility] Patient Reg, [place], [id number], 21:01:17 CBC [address] Patient Reg, [place], [id number], 09:48:00 CMP, serum or plasma [address] Patient [place], [place], [id number], 2 09:48:01 PTH (parathyroi d hormone), intact, serum or plasma [address] Patient Reg, [place], [id number], 2 09:48:01 vitamin B1 (thiamine), blood [address] Patient Reg, [address] [place], [id number], 2 09:48:01 vitamin B12 + folate, serum or blood [address] Patient Reg, [address] [place], [address], 2 09:48:01 H pylori igg, serum [address] Patient Reg, [address] [place], [id number], 2 09:48:01 abo group + rh type, blood [address] Patient Reg, [address] [place] [address], [address], 2 09:48:01 lipid panel, serum [address] Patient Reg, [address] [place], [address], 2 09:48:02 antibody screen, serum or plasma [address] Patient Reg, [address] [place] [address], [address], 2 09:48:02 25-hydroxyv itamin D2 + 25-hydroxyv itamin D3, QN, serum or plasma [address] Patient Reg, [address] [place], [address], 2 09:48:02 HbA1c (hemoglobin A1c), blood 2021 022 [facility] Patient Reg, [address] [facility], [id number], 3 03:30:44 nicotine, quantitativ e, serum or plasma [address] Patient Reg, [address] [facility] [place], [address], 09:48:02 TSH, serum or plasma [address] Patient Reg, [address] [facility] [place], [address], 09:48:02 iron + total iron-bindin g capacity (TIBC), serum [address] Patient Reg, [address] [facility] [place], [address], 09:48:03 Referral web publisher referral - 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 [address] [facility], [address] [place], [address], 11:53:18 nutritionis t/dietitian referral [address] (Nutrition Services), [address] [place], [place] [address], [address], 15:21:08 behavioral health referral - [facility], [address] [place] [address] [place], [address], 2 07:49:41 Procedures colonoscopy screening (PROC) - due for colonoscopy 2021 022 [email or web address] Not available 3 13:41:40 Surgeries None recorded. Imaging DEXA, axial skeleton 2021 [facility] (Central Scheduling), [address] [place], [address], 2 14:34:00 RF, upper gastrointes tinal tract, w/ air, w/ contrast PO - s/p gastric band 2021 [facility] (Central Scheduling), [address] [place], [address], 2 12:20:29 US, abdomen, complete 2021 022 [facility] (Central Scheduling), [address] [place], [id number], 2 12:20:29 XR, chest, 2 view 2021 022 [facility] (Central Scheduling), [address] [place], [id number], 2 08:58:00 electrocard iogram - Preop bariatric surgery 2021 022 [facility] (Central Scheduling), [address] [place], [address], 2 08:58:00 Medication Orders None recorded. Patient TargetsNo targets recorded. Patient Instructions Encounter Date Encounter Id Patient Instructions Last Modified By Organization Details Last Modified Time 05/06/2021 [id number] Review nutrition packet provided today prior to meeting with RD and start implementing dietary and behavioral changes [email or web address] Not available 05/06/2021 15:17:58 Reviewed with patient both sleeve gastrectomy and gastric bypass surgery, as well as their relative risks and complication, all questions answered. Reviewed nutrition packet with patient (recommended measuring and weighing foods, logging meals and beverages, starting structured exercise routine, etc). New patient folder provided and reviewed with patient. Patient will be scheduled to see surgeon, nutrition and BH. Labs and imaging pending. Spent 60 min reviewing chart, labs, evaluating and educating patient, orders and coordinating follow-up care and testing. I spent a total of 60 minutes on the date of encounter, which included: Preparing to see the patient (e.g., review of test results) Obtaining and/or reviewing separately obtained history Performing a medically appropriate exam and/or evaluation Provided patient education Documenting clinical information in the health record Ordering medications, tests, procedures Referring and communicating with other healthcare professionals Independently interpreting results (not separately reported) Care coordination not separately reported [email or web address] Not available 05/06/2021 15:18:05 Reason for Referral 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 - has been painful Does not look like a plantars wart - but this is also on my differential Would like a consult for treatment options Referring Physician: Tiana Mcneil Family [facility], Encounter Date: 12/21/2021 Results Created Date Observation Date Name Description Value Unit Range Abnormal Flag Note LastModifiedBy Organization Detail LastModifiedTime 12/22/19 22 12/21/2021 COMPL ETE BLOOD COUNT NO DIFF white blood count 7.32 K/uL 3.5-11 .0 normal Not Available [facility] Department [address] [place], [address] 12/21/2021 20:27:10 12/22/19 22 12/21/2021 COMPL ETE BLOOD COUNT NO DIFF red blood count 4.36 M/uL 3.60-4 .80 normal Not Available [facility] Department [address] [place] [address], [id number] 12/21/2021 20:27:10 12/22/19 22 12/21/2021 COMPL ETE BLOOD COUNT NO DIFF hemoglobin 12.3 g/dL 12.0-1 6.0 normal Not Available [facility] Department [address] [place] [address], [id number] 12/21/2021 20:27:10 12/22/19 22 12/21/2021 COMPL ETE BLOOD COUNT NO DIFF hematocrit 38.3 % 36.0-4 8.0 normal Not Available [facility] Department [address] [place] [address], [id number] 12/21/2021 20:27:10 12/22/19 22 12/21/2021 COMPL ETE BLOOD COUNT NO DIFF mean corpuscular volume 87.8 fL 79.0-9 8.0 normal Not Available [facility] Department [address] [place] [address], [id number] 12/21/2021 20:27:10 12/22/19 22 12/21/2021 COMPL ETE BLOOD COUNT NO DIFF mean corpuscular hemoglobin 28.2 pg 25.4-3 4.6 normal Not Available [facility] Department [address] [place] [address], [id number] 12/21/2021 20:27:10 12/22/19 22 12/21/2021 COMPL ETE BLOOD COUNT NO DIFF mean corpuscular HGB conc 32.1 g/dL 30.0-3 6.0 normal Not Available [facility] Department [address] [place] [address], [id number] 12/21/2021 20:27:10 12/22/19 22 12/21/2021 COMPL ETE BLOOD COUNT NO DIFF red cell distribution width 12.3 % 11.5-1 4.5 normal Not Available [facility] Department [address] [place] [address], [id number] 12/21/2021 20:27:10 12/22/19 22 12/21/2021 COMPL ETE BLOOD COUNT NO DIFF platelet count 404 K/uL 150-40 0 high Not Available [facility] Department [address] [place], [address] 12/21/2021 20:27:10 12/22/19 22 12/21/2021 COMPL ETE BLOOD COUNT NO DIFF neutrophils absolute auto 3.59 K/uL 1.5-7. 5 normal Cauti on: Inter preta tion of ANC resul ts witho ut inclu aidee of the WBC diffe renti al resul ts may lead to dominick eous diagn osis; for examp le, jak ng myelo proli ferat margareth or lymph oprol ifera tive disor ders. Not Available [facility] Department [address] [place], [address] 12/21/2021 20:27:10 12/22/19 22 12/21/2021 COMPR EHENS MARGARETH MET. PANEL sodium 136 mmol/ L 136-14 5 normal Not Available [facility] Department [address] [place], [address] 12/21/2021 21:01:16 12/22/19 22 12/21/2021 COMPR EHENS MARGARETH MET. PANEL potassium 4.8 mmol/ L 3.5-5. 1 normal Not Available [facility] Department [address] [place] [address], [id number] 12/21/2021 21:01:16 12/22/19 22 12/21/2021 COMPR EHENS MARGARETH MET. PANEL chloride 98 mmol/ L 98-107 normal Not Available [facility] Department [address] [place], [address] 12/21/2021 21:01:16 12/22/19 22 12/21/2021 COMPR EHENS MARGARETH MET. PANEL carbon dioxide 26.5 mmol/ L 22-29 normal Not Available [facility] Department [address] [place], [address] 12/21/2021 21:01:16 12/22/19 22 12/21/2021 COMPR EHENS MARGARETH MET. PANEL anion gap 16 mmol/ L 10-20 normal Not Available [facility] Department [address] [place] [address], [address] 12/21/2021 21:01:16 12/22/19 22 12/21/2021 COMPR EHENS MARGARETH MET. PANEL blood urea nitrogen 13 mg/dL 8-23 normal Not Available [facility] Department [address] [place], [address] 12/21/2021 21:01:16 12/22/19 22 12/21/2021 COMPR EHENS MARGARETH MET. PANEL creatinine 0.72 mg/dL 0.50-0 .90 normal Not Available [facility] Department [address] [place], [address] 12/21/2021 21:01:16 12/22/19 22 12/21/2021 COMPR EHENS MARGARETH MET. PANEL glomerular filtration rate > 90 GFR Value : ml/mi n/1.7 3 squar e meter s * If patie nt is Afric an-Am cj n, multi ply resul t by 1.159 Chron ic Kidne y Disea se is defin ed as less than 60 ml/mi n/1.7 3 squar e meter s. Kidne y failu re is less than 15 ml/mi n/1.7 3 squar e meter s Test is not perfo rmed on patie nts under the age of 18 Not Available [facility] Department [address] [place], [address] 12/21/2021 21:01:16 12/22/19 22 12/21/2021 COMPR EHENS MARGARETH MET. PANEL glucose 77 mg/dL 82-115 low Not Available [facility] Department [address] [place], [address] 12/21/2021 21:01:16 12/22/19 22 12/21/2021 COMPR EHENS MARGARETH MET. PANEL calcium 9.4 mg/dL 8.8-10 .2 normal Not Available [facility] Department [address] [place], [address] 12/21/2021 21:01:16 12/22/19 22 12/21/2021 COMPR EHENS MARGARETH MET. PANEL bilirubin total 0.3 mg/dL 0.2-1. 2 normal Not Available [facility] Department [address] [place], [address] 12/21/2021 21:01:16 12/22/19 22 12/21/2021 COMPR EHENS MARGARETH MET. PANEL aspartate amino transferase 18 U/L 5-32 normal Not Available [facility] Department [address] [place], [address] 12/21/2021 21:01:16 12/22/19 22 12/21/2021 COMPR EHENS MARGARETH MET. PANEL alanine aminotransfe rase 15 U/L 5-33 normal Not Available [facility] Department [address] [place], [address] 12/21/2021 21:01:16 12/22/19 22 12/21/2021 COMPR EHENS MARGARETH MET. PANEL total protein 6.6 g/dL 6.4-8. 3 normal Not Available [facility] Department [address] [place], [address] 12/21/2021 21:01:16 12/22/19 22 12/21/2021 COMPR EHENS MARGARETH MET. PANEL albumin level 4.2 g/dL 3.5-5. 2 normal Not Available [facility] Department [address] [place], [address] 12/21/2021 21:01:16 12/22/19 22 12/21/2021 COMPR EHENS MARGARETH MET. PANEL globulin 2.4 gm/dL 2.0-3. 5 normal Not Available [facility] Department [address] [place], [address] 12/21/2021 21:01:16 12/22/19 22 12/21/2021 COMPR EHENS MARGARETH MET. PANEL albumin globulin ratio 1.8 % 1.1-2. 5 normal Not Available [facility] Department [address] [place], [address] 12/21/2021 21:01:16 12/22/19 22 12/21/2021 COMPR EHENS MARGARETH MET. PANEL alkaline phosphatase 74 U/L 35-104 normal Not Available [facility] Department [address] [place], [address] 12/21/2021 21:01:16 12/22/19 22 12/21/2021 LIPID PANEL WITH REFLE X triglyceride s w/ reflex LDL 86 mg/dL 30-150 normal Refer ence Range s: <150 mg/dl Yareli l 150-1 99 mg/dl Borde rline High 200-4 99 mg/dl High >500 mg/dl Very High Not Available [facility] Department [address] [place], [address] 12/21/2021 21:01:12/22/19 22 12/21/2021 LIPID PANEL WITH REFLE X cholesterol 262 mg/dL 100-20 0 high Not Available [facility] Department [address] [place], [address] 12/21/2021 21:01:17 12/22/19 22 12/21/2021 LIPID PANEL WITH REFLE X LDL cholesterol calculated 171.9 mg/dL 0-100 high Natio nal Danette stero l Educa tion Progr am sugge sts the follo wing refer ence range : Optim al <100 mg/dL Near optim al/ab ove optim al 100-1 29 mg/dL Borde rline high 130-1 59 mg/dL High 160-1 89 mg/dL Very high >190 mg/dL Not Available [facility] Department [address] [place], [address] 12/21/2021 21:01:12/22/19 22 12/21/2021 LIPID PANEL WITH REFLE X HDL cholesterol 72.9 mg/dL 40-60 high Major risk facto r for CHD: <40 mg/dL Negat margareth risk facto r for CHD: >=60 mg/dL Not Available [facility] Department [address] [place], [address] 12/21/2021 21:01:12/22/19 22 12/21/2021 LIPID PANEL WITH REFLE X chol HDL ratio 3.59 Risk CHOL/ HDL CHOL/ HDL Ratio Male Femal e 1/2 AVERA GE 3.43 3.27 AVERA GE 4.97 4.44 2 X AVERA GE 9.55 7.05 3 X AVERA GE 23.39 11.04 Not Available [facility] Department [address] [place], [address] 12/21/2021 21:01:12/22/19 22 12/21/2021 TSH REFLE X FREE T4 TSH reflex free T4 2.03 uIU/m L 0.27-4 .20 normal Not Available [facility] Department [address] [place], [address] 12/21/2021 21:01:12/22/19 22 12/21/2021 VITAM IN D 25-OH TOTAL vitamin D 25-oh total 37.0 NG/mL Refer ence Range : Defic ient <20 ng/mL Insuf ficie nt 21-29 ng/mL Suffi cient >30 ng/mL Not Available [facility] Department [address] [facility], [place], [address] 12/21/2021 21:10:43 01/13/20 audio gram No observ ation record ed. [email or web address] Not Available 2021 13:50:42 01/19/2001/18/2022 DEXA, [facility] skele [facility] [address] 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 Orderi ng Physic georgina: Tiana jimenez Date of Servic e: Proced ure(s) : XR DEXA axial skelet on Access ion Number (s): [id number] H cc: Tiana Cavazos er ====== ====== ====== ====== ====== ====== ====== ====== ====== ====== ===== Bone Densit y Report ====== ====== ====== ====== ====== ====== ====== ====== ====== ====== ===== Name: MARGIE CAREY ID: [id number] Age: 61 Sex: Female Ethnic ity: White Date of : 1960 ------ ------ ------ ------ ------ ------ ------ ------ ------ ------ ----- Indica tion: postme nopaus al; screen ing for osteop orosis ; parent al hip fractu re; Referr ing Provid er: ALONZO JIMENEZ, TIANA PIZARRO Study: Bone densit ometry was [facility] med. Exam Date: 2021 Access ion number : [id number] Bone Densit y: ------ ------ ------ ------ ------ ------ ------ ------ ------ ------ ----- Region BMD T-scor e Z-scor e Classi ficati on ------ ------ ------ ------ ------ ------ ------ ------ ------ ------ ----- AP Spine (L1-L4 ) 0.899 -1.3 0.2 Osteop enia Femora l Neck (Left) 0.687 -1.5 -0.1 Osteop enia Total Hip (Left) 0.870 -0.6 0.4 Normal Femora l Neck (Right ) 0.696 -1.4 0.0 Osteop enia Total Hip (Right ) 0.869 -0.6 0.4 Normal Total Hip Mean 0.870 -0.6 0.4 Normal ------ ------ ------ ------ ------ ------ ------ ------ ------ ------ ----- World Health Organi zation criter ia for BMD impres aidee classi fy patien ts as: Normal (T-sco re at or above -1.0), Osteop enia (T-sco re betwee n -1.0 and -2.5), or Osteop orosis (T-sco re at or below -2.5). 10-yea r Fractu re Risk(1 ): ------ ------ ------ ------ ------ ------ ------ ------ ------ ------ ----- Major Osteop orotic Fractu re 15% Hip Fractu re 0.6% ------ ------ ------ ------ ------ ------ ------ ------ ------ ------ ----- Report ed Risk Factor s: [place] (Shaylee serra), Neck BMD=0. 687, BMI=33 .3, parent al fractu re (1) FRAX(R ) Versmarcelino n 3.08. Fractu re probab ility calcul ated for an untrea liv granados. Fractu re probab ility may be lower if the patien t has receiv ed treatm ent. Impres aidee: The patien t has osteop enia (low bone mass), based on the Left Femora l Neck T-scor e. The patien t has an estima liv ten-ye ar risk of hip fractu re of 0.6% and an estima liv ten-ye ar risk of major fractu re of 15%, based on the WHO FRAX algori thm. The patien t has risk factor s, includ ing: parent al hip fractu re. Discus aidee: BONE DENSIT Y IS LOW AT ONE OR MORE SKELET AL SITES. This patien t's lowest T-scor e is low at one or more skelet al sites. It meets the World Health Organi zation 's (WHO) criter ia for i??low bone massi? ? (T-sco re betwee n -1.0 and -2.5). The olgaen t's 10-yea r risk of fractu re as calcul ated by FRAX is less than the thresh old where pharma cologi rey therap y is recomm ended by the Nation al Osteop orosis Founda tion (NOF). Howeve r, all treatm ent decisi ons requir e clinic al judgme nt and consid eratio n of indivi dual patien t factor s, includ ing patien t prefer ences, comorb iditie s, previo us drug use, risk factor s not captur ed in the FRAX model (e.g., frailt y, falls, vitami n D defici ency, increa sed bone turnov er, interv al signif icant declin e in bone densit y) and possib le under or overes timati on of fractu re risk by FRAX. The patien t should follow a health ful lifest yle (good nutrit ion with adequa te calciu m and vitami n D, and approp riate weight -beari ng exerci se). Follow -Up: As clinic juventino peck. Report ed by: Dr. Baldo parada on 2021 2:13:0 0 PM. Dictat ed By: Baldo parada Signed By: [id number] DD/DT: 0000 TD/TT: Transc riptio nist: [email or web address] [facility] [address] [place] [address], [id number], 01/24/2022 09:44:33 Result Notes None recorded. Problems Name Problem SNOMED Code Status Onset Date Resolution Date Notes Provider Name and Address Organization Details Recorded Time Laparosc opic adjustab le gastric banding Active 2021 2011 [facility] ZANA HELM [address] [place] [address], [phone] , [facility] 2 13:24:17 Morbid obesity 785154910 Completed 202112/15/2021 KATHERIN Childress, [facility] 2 14:26:47 Chronic arthriti s [id number] Active 2021 KATHERIN Childress, [facility] 2 14:27:15 Acid reflux 377446104 Active 2021 KATHERIN Childress, [facility] 14:27:30 Problem Notes None recorded. Procedures Surgical History Date Name Laterality Status Provider Name and Address Organization Details Recorded Time 01/14/20 22 Diabetic Routine Foot Care completed GENESIS CULLEN DPM [address] [place] [address], [phone], [facility] 01/20/2022 11:28:40 12/03/19 20 Date of Last Mammogram completed Natanael Marie CNA [facility] 12/15/2021 14:25:00 06/02/19 17 Date of Last Pap Smear completed Natanael Marie CNA [facility] 12/15/2021 14:25:07 02/02/20 13 Colorectal ca screen doc rev completed Natanael Marie CNA [facility] 12/15/2021 14:26:08 04/03/19 11 laparoscopic adjustable gastric banding completed ZANA HELM [address] [place] [address], [phone], [facility] 05/04/2021 13:22:32 04/03/19 11 esophageal hiatus hernia repair completed ZANA HELM [address] [place] [address], [phone], [facility] 05/04/2021 13:23:17 Imaging Results Imaging Date Name Status LastModified by Organiz ation Details LastModified Time 01/12/2022 audiogram completed [email or web address] Information no t available 01/26/2022 13:50:42 01/18/2022 DEXA, axial skeleton completed gregory [facility] [address] [place] [address], [id number], 01/24/2022 09:44:33 Procedure Notes None recorded. Medical Equipment None Reported. Allergies Allergen ID Allergen Name Allergen Category Reaction Reaction Severity Criticality Documentation Date Start Date Code Code System Note Provider Name and Address Organization Details Recorded Time 715306 propranol ol medicatio n facial swelling severe high 05/06/2021 [address] [facility] 14:13:48 951541 acetamino phen / hydrocodo ne medicatio n angioedem a Not available [facility] 12/15/2021 17889 [address] [facility] 2 14:13:37 Medications Name Sig Start Date Stop Date Status Note LastModified by Organization Details LastModified Time flowflex covid-19 antigen home test kit active Not Available Not Available Not Available fluoxetine 40 mg capsule active Not Available Not Available N ot Available atorvastatin 80 mg tablet Take 1 tablet every day by oral route. active Not Available Not Available No t Available estradiol 0.01% (0.1 mg/gram) vaginal cream active Not Available Not Availabl e Not Available magnesium active Not Available Not Sandra ilable Not Available calcium carbonate active Not Available Not Available No t Available potassium acetate active Not Available Not Available Not Available aspirin 81mg active Not Available Not Avail able Not Available vitamin E active Not Available Not Sandra ilable Not Available fluoxetine active Not Available Not Av ailable Not Available biotin active Not Available Not Availa ble Not Available Glucosamine active Not Available Not A vailable Not Available Vitamin D3 active Not Available Not Av ailable Not Available cetirizine 10 mg capsule Take by oral route. active Not Available Not Available No t Available B12 active Not Available Not Availa ble Not Available multivit 37-iron 27 mg-Lmfolate 1.13 mg-algaloil,so y 581.92 mg capsule Take by oral route. active Not Available Not Available No t Available Vitals Date Recorded Body weight Heart rate Oxygen saturation Oxygen saturation in Arterial blood by Pulse oximetry Body height Body mass index (BMI) Systolic blood pressure Diastolic blood pressure Provider Name and Address Organization Details Last Updated DateTime 2 06205.2 1 g 70 /min 97 % 97 % 154.94 cm 35.4 kg/m2 96 mm[Hg] 68 mm[Hg] Anne Blair MA [facility] 2 13:57:39 Date Recorded Body height Body height Body mass index (BMI) Body weight Heart rate Heart rate Systolic blood pressure Diastolic blood pressure Systolic blood pressure Diastolic blood pressure Provider Name and Address Organization Details Last Updated DateTime 2 154.94 cm 156.21 cm 34.6 kg/m2 75063.5 g 72 /min 73 /min 136 mm[Hg] 92 mm[Hg] 129 mm[Hg] 89 mm[Hg] Natanael Marie CNA [facility] 16:30:35 Social History Question Answer Notes LastModified by Organizat ion Details LastModified Time Tobacco Smoking Status Former Smoker KATHERIN Childress [facility] 12/21/2021 16:24:41 What Is Your Level Of Alcohol Consumption? None Information not available 12/21/2021 What Was The Date Of Your Most Recent Tobacco Screening? 12/21/2021 Information not available 12/21/2021 Do You Use Any Illicit Or Recreational Drugs? No Information not available 12/21/2021 Sex: Unknown Functional Status None recorded. Mental Status None recorded. Family History Nothing Reported. Medical History No medical history recorded. Gynecological History Statement/Question Response Date of Last Pap Smear 06/01/2016 Date of Last Mammogram 12/03/2019 Obstetrics History GPAL:G 0 P 0 0 0 0 Immunizations Vaccine Type Date Status Note Provider Name and Address Organization Details Recorded Time Influenza, split virus, quadrivalent, preservative 01/16/[address] [facility] 06/30/2022 13:51:04 COVID-19, mRNA, LNP-S, PF, 100 mcg/0.5mL dose or 50 mcg/0.25mL dose 07/30/19 21 completed Nely Katelynderrell bruno [facility] 06/30/2022 13:51:04 COVID-19, mRNA, LNP-S, PF, 100 mcg/0.5mL dose or 50 mcg/0.25mL dose 08/29/19 21 completed Nely Quiñonestederrell bruno [facility] 06/30/2022 13:51:04 Tdap 12/24/19 [address] [facility] 12/15/2021 14:19:13 tetanus toxoid, unspecified formulation 12/04/19 20 completed Nely Quiñonestederrell bruno [facility] 06/30/2022 13:51:04 Td (adult), 5 Lf tetanus toxoid, preservative free, adsorbed 12/04/19 20 completed Nely bruno, [facility] 06/30/2022 13:51:04 Influenza, split virus, quadrivalent, PF 12/22/19 completed Theo Obrien MD [address] [place] [address], [phone], [facility] 12/25/2021 08:50:00 zoster recombinant 12/22/19 22 cancelled patient objection TIANA MCNEIL NP [address] [place] [address], [phone], [facility] 12/21/2021 17:18:26 Pneumococcal conjugate PCV 13 12/22/19 completed Theo Obrien MD [address] [place] [address], [phone], [facility] 12/25/2021 08:50:00 Past Encounters Encounter ID Performer Location Encounter Start Date Encounter Closed Date Diagnosis/Indication Diagnosis SNOMED-CT Code Diagnosis ICD10 Code Diagnosis Note [id number] ZANA Echols Occupatio [facility] [address] [place] [address] 08/30/2018 15:25:48 08/30/2018 15:59:50 [id number] ZANA HELM [facility] [address],[place] [address] 05/06/2021 13:42:53 05/06/2021 15:28:32 History of laparoscopic adjustable gastric banding 380787308 Z98.84 s/p lap adjustable gastric band Obesity 522513212 E66.9 BMI: 35.4 Pre-surger y evaluation 723348448 Z01.818 conversion from gastric band to sleeve or bypass Body mass index 30+ - obesity 731272481 Z68.35 BMI: 35.4 [id number] Theo Obrien MD [address] [address] 12/21/2021 16:12:58 12/21/2021 18:33:00 Adult health examination 776467739 Z00.00 Patient should discuss medical decisions with Health Care Proxy. Recommende d screenings included colonoscop y screening age 45, earlier based on family history/ri sk factors; annual mammogram age 50, unless earlier based on risk factors and discussion with patient; bone density age 65, unless risk factors for earlier screening; one time screen for hepatitis C if born between 4025-2658 or has risk factors. Recommend annual low-dose CT scan screening for high-risk individual s ages 50 to 80 years with 20 pack-year history of smoking and current smoker or quit within past 15 years. Reviewed vaccines and current recommenda tions. Basic health topics include aerobic exercise, importance of healthy/ba lanced diet and minimizing caffeine and alcohol. Administra tion of pneumococcal vaccine 16220831 Z23 If PCV15 is used, this should be followed by a dose of PPSV23 one year later. The minimum interval is 8 weeks and can be considered in adults with an immunocomp romising condition, cochlear implant, or cerebrospi nal fluid leak. If PCV20 is used, a dose of PPSV23 is NOT indicated. Administra tion of diphtheria and tetanus vaccine 58808243 Z23 UTD - 2020 Screening mammography 24 029565 Z12.31 Had one recently - 11/19/21 results: Benign finding.DE NSITY: ? ? There are scattered fibrogland ular densities. Screening for malignant neoplasm of colon 741124611 Z12.11 will order today Decreased estrogen level 792765200 E28.39 order dexa scan today Screening for malignant neoplasm of cervix 195783301 Z12.4 UTD - 2 years ago - will send the results from her prior PCP office Viral screening 56137755 4 Z11.59 One time screen based on date between 2406-9355 and/or high risk for disease. Varicella vaccination 68 360072 Z23 education provided - will check her insurance and pharmacy Influenza vaccine needed 7984914668 106 Z23 Pt presents for influenza vaccinatio n. Patient screened with questions from 7988-6837 Flu protocol. Discussed importance of influenza vaccine due to the patient's risk of contractin g the disease. A handout was offered to enhance understand ing of the effects and side effects of the vaccine. Dionte's n euroma of left foot 7822102741 13868 G57.62 left foot - thought it was a plantars wart - diff DX - [facility] referral for treatment options Osteopenia 783912207 M85 .80 will have a dexa scan ordered and check vit D levels Unintentio nal weight gain 0216392978 21230 R63.5 Thyroid labs today Hearing loss 02783732 H9 1.93 needs a follow up for hearing loss due to noise exposureLe ft ear is mostly affected - but would like to have both tested [id number] GENESIS CULLEN DPM [facility] [place] [address] [place] [address] 01/13/2022 15:23:43 01/13/2022 15:53:04 Willis - lesion 827740666 L84 Health Concerns Section Related Observation LastModified by Organization Detai ls LastModified Time None Recorded Concern Status LastModified by Organization Details LastModified Time None Recorded Advance Directives Directive None Recorded Payers Encounter Date Sequence Insurance Name Policy Number Policy Piper Covered Member ID Piper Member ID Guarantor Name 05/06/2021 1 [employer] [facility] Margie Tarbox [id number] Margie Tarbox 12/21/2021 1 [facility] [place] [place] [id number] Margie Tarbox [id number] Margie Tarbox 01/13/2022 1 [facility] [place] [place] [id number] Margie Tarbox [id number] Margie Tarbox Notes Date Note Type Note Provider Name and Address Organization Details Recorded Time 05/06/19 22 text/ht ml 60 yo female with history of lap adjustable gastric band placement 2010 at [place], [place]. Patient is here today to discuss conversion to sleeve or bypass. Margie preop weight was 266 lbs, post-op shirin 136 lbs, for a total weight loss of 130 lbs She states postoperatively there were no complications. Margie states they also repaired a softball size hernia at the same time. In May 2020 she did develop reflux, severe esophagitis and regurgitation resulting in aspiration pneumonia. Her abd CT showed significant dilated esophagus. All the fluid was removed from her band and a repeat CT in June was normal and her symptoms had resolved. She underwent another band adjustment recently in April and currently has 6.75 mL of saline in the band.and reHow much did she have in the band when she aspiratedAt this time she is not experiencing reflux, dysphagia or abdominal pain. She is frustrated with her repetitive fluctuations weight . She has chronic lower back, hip, knee and feet pain.Margie lives in [place], [place] with her partner of 2 years, who is supportive of her decision. She is treated for anxiety and depression by her PCP. Margie denies history of inpatient behavioralhealth services, suicidal ideation/attempts, diagnosed eating disorder or substance use disorder. PMH:Seen 2020 for severe esophagitis, regurgitation and resultant aspiration pneumonia.May 2020 - CT scan showed dilated esophagus and gastric pouchMarch 2020 - CT scan showed resolutionApril 0221: UGI showed band in proper position and no reflux Patient confirmed they received COVID vaccineMedication list reviewed with patient. SURGICAL HX:Lap adjustable gastric bandtubal ligation SOCIAL HX:Smokes: noneETOH: noneRecreational drug use: none FHX:updated in patient's chart. ZANA HELM [address] [place] [address], [phone], [facility] 05/06/2021 17:04:13 12/22/19 22 text/ht ml Margie is here today for a CPECC: Patient Active Problem ListAcute CVA (cerebrovascular accident)ArthritisColor vision deficiencyDepressionEsophageal refluxDupuytren's contractureGeneralized osteoarthritis of handIrritable bowel syndrome with constipationMigraine headachePelvic floor dysfunctionSleep apneaSpondylolisthesis, acquiredTrigger middle finger of right handprolapse of female pelvic organsUrinary incontinenceHistory of adjustable gastric bandingCoccyx pain Immunizations Tetanus - 2o20 Influenza: will administer today Covid: x 3 Pneumonia: will Shingles: Education providedPap: had one 2 years agoMammogram: a couple months ago - had a lipoma but no cancer - 11/19/21 results: Benign finding.DENSITY: ? ? There are scattered fibroglandular densities.Colonoscopy: follow up - has been 11 years - will order todaySleep: sleeps wellDiet: no restrictionsExercise: walkingSmoker: no - quit at 32 years oldAlcohol: on occasionDrug use: noAnxiety/depression: fluoxetine works wellBladder/Bowel changes: bladder - has leakage - follows a doctor for pessary - is due to have a revisionSkin/mole changes: left foot has a plantars wart - or a neuroma Theo Obrien MD [address] [place], [phone], [facility] 12/25/2021 08:50:03 01/14/20 22 text/ht ml 61-year-old female seen today in clinic for evaluation of left foot lesions that are painful. She thinks they are either calluses or warts but does not know for sure. She is try to self manage these however they keep coming back and painful. Denies any recent foot or ankle trauma. GENESIS CULLEN DPM [address] [facility] [place], [id number], [facility] 01/20/2022 11:30:11 OBGyn Episode No OBEpisode recorded.
--- OUTSIDE RECORDS SUMMARY | 2024-06-11 06:37 | XMS_ITS | Data Portability ---
Author Organization [facility], [employer] [facility] Address [address] [place] [address] Care Team Providers Care Mechanical Engineering Specialist Name Role Phone TIANA MCNEIL Primary Care Provider TNOIE MCNEILISTY Referring Provider [phone] Assessment No assessment recorded. Plan of Treatment Reminders Order Date Submit Date Provider Last Modified By Organization Details Last Modified Time Details Appointments None recorde d. Lab drug screen, 5 drugs, urine 019 08/31/[address], [address] [place] [address], [address], 9 15:48:13 Referral None recorde d. Procedures None recorde d. Surgeries None recorde d. Imaging None recorde d. Medication Orders None recorde d. Patient TargetsNo targets recorded. Patient InstructionsNo instructions recorded. Reason for Referral None Reported. Results Created Date Observation Date Name Description Value Unit Range Abnormal Flag Note LastModifiedBy Organization Detail LastModifiedTime 08/31/1908/30/2018 drug scree n, 5 drugs , urine Methamphetam ine negati ve Not Available [address], [address], 08/30/2018 15:27:18 08/31/19 19 08/30/2018 drug scree n, 5 drugs , urine Opiates negati ve Not Available [address], [address], 08/30/2018 15:27:18 08/31/19 19 08/30/2018 drug scree n, 5 drugs , urine PCP negati ve Not Available [facility] [address], [place], [address], 08/30/2018 15:27:18 08/31/19 19 08/30/2018 drug scree n, 5 drugs , urine Amphetamine negati ve Not Available [facility] [address], [place], [address], 08/30/2018 15:27:18 08/31/19 19 08/30/2018 drug scree n, 5 drugs , urine Cocaine negati ve Not Available [facility] [address], [place], [address], 08/30/2018 15:27:18 08/31/1908/30/2018 drug scree n, 5 drugs , urine THC negati ve Not Available [facility] [address], [place], [address], 08/30/2018 15:27:18 Result Notes None recorded. Problems Name Problem SNOMED Code Status Onset Date Resolution Date Notes Provider Name and Address Organization Details Recorded Time Arthritis 2255234 Active 019 ZANA Mason [address] [place], [address], [facility] 15:27:37 Color vision deficiency 483208692 Active 019 ZANA Mason [address] [place], [address], [facility] 15:51:21 Migraine 93016676 Active 019 ZANA Mason [address] [facility], [address], [facility] 15:51:29 Depressive disorder 24108733 Active 019 ZANA Mason [address] [place], [address], [facility] 15:51:34 Problem Notes None recorded. Medical Equipment None Reported. Medications Name Sig Start Date Stop Date Status Note LastModified by Organization Details LastModified Time flowflex covid-19 antigen home test kit active Not Available Not Available Not Available fluoxetine 40 mg capsule active Not Available Not Available N ot Available estradiol 0.01% (0.1 mg/gram) vaginal cream active Not Available Not Availabl e Not Available Vitals None Recorded Social History None recorded. Functional Status None recorded. Mental Status None recorded. Family History Nothing Reported. Medical History No medical history recorded. Gynecological HistoryNo gynecological history recorded. Obstetrics History GPAL:G 0 P 0 0 0 0 Past Encounters Encounter ID Performer Location Encounter Start Date Encounter Closed Date Diagnosis/Indication Diagnosis SNOMED-CT Code Diagnosis ICD10 Code Diagnosis Note [id number] ZANA Echols Occupatio [facility] [address] [place] [address] 08/30/2018 15:25:48 08/30/2018 15:59:50 History and physical examination, pre-employment 009852899 Z02.1 Normal exam. Urine drug screen negative. She does have a hard time distinguis gerardo some colors that are similar shades . 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 If that is not of any concern for her job type then she is medically cleared. [id number] ZANA HELM [facility] [address] [address] 05/06/2021 13:42:53 05/06/2021 15:28:32 [id number] Theo Obrien MD [facility] [address] [place] [address] 12/21/2021 16:12:58 12/21/2021 18:33:00 [id number] [facility] [place] [address] [place] [address] 01/13/2022 15:23:43 01/13/2022 15:53:04 Health Concerns Section Related Observation LastModified by Organization Detai ls LastModified Time None Recorded Concern Status LastModified by Organization Details LastModified Time None Recorded Advance Directives Directive None Recorded Payers Encounter Date Sequence Insurance Name Policy Number Policy Piper Covered Member ID Piper Member ID Guarantor Name 08/30/2018 [employer] Margie Tarbox 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 She denies any history of work related injuries. ZANA Echols [address] [place] [address], [phone], [facility] 08/30/2018 15:52:28 OBGyn Episode No OBEpisode recorded.
--- OUTSIDE RECORDS SUMMARY | 2024-06-11 06:37 | XMS_ITS | Encounter Summary ---
Author Organization [facility] Address [address] [place] [address] Care Team Providers Care Warehouse Puller Name Role Phone Minerva Morejon Primary Care Provider [phone] Encounter Details Date Type Department Care Team (Late st Contact Info) Description 11/23/2020 Telephone [facility] Interventional Radiology [address] [place] [id number] Mara Guillory RN Social History Tobacco Use Types Packs/Day Years Used Date Smoking Tobacco: Never Assessed Comments Unknown Sex and Gender Information Value Date Recorded Sex Assigned at Female 03/07/2021 12:01 PM EST Legal Sex Female 7:13 AM EDT Gender Identity Female 03/07/2021 12:01 PM EST Sexual Orientation Straight 03/07/2021 12 :01 PM EST documented as of this encounter Plan of Treatment Not on file documented as of this encounter Visit Diagnoses Not on filedocumented in this encounter Care Teams Warehouse Puller Relationship Specialty Start Date End Date Minerva Morejon PCP - General Family Medicine 03/02/21 documented as of this encounter
--- OUTSIDE RECORDS SUMMARY | 2024-06-11 06:37 | XMS_ITS | Clinical Summary ---
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 Active b complex vitamins Capsule Take 1 capsule by mouth daily. Active fish oil-omega-3 fatty acids 1,000 mg Capsule Take 2 g by mouth daily. Active ergocalciferol, vitamin D2, (VITAMIN D ORAL) Take by mouth. Active collagen, bovine, 100 % Powder Apply topically. Active vitamin E 100 unit Capsule Take 100 Units by mouth daily. Active ascorbic acid, vitamin C, (VITAMIN C) 100 mg Tablet Take 100 mg by mouth daily. Active diphenhydrAMINE (Benadryl) 25 mg Capsule Take 25 mg by mouth every 6 hours as needed for Itching. Active cetirizine (ZyrTEC) 10 mg Tablet Take 10 mg by mouth daily. Active biotin 300 mcg Tablet Take by mouth. Active calcium carbonate (CALCIUM 300 ORAL) Take by mouth. Ac tive magnesium 250 mg Tablet Take by mouth. Active POTASSIUM CHLORIDE ORAL Take 50 mg by mouth every other day. Active atorvastatin (Lipitor) 40 mg Tablet Take 40 mg by mouth daily. Active aspirin EC 81 mg Tablet, Delayed Release (E.C.) Take 81 mg by mouth daily. Active FLUoxetine (PROzac) 40 mg CapsuleIndications:De pression, unspecified depression type take 1 capsule by mouth once daily 30 capsule 12 05/11/2022 Active Active Problems Patient Care Coordination No te Formatting of this note migh t be different from the original. 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 11/23/2020 Overview (01/07/2021): Underwent thrombectomy at [facility] Dupuytren's contracture 10/29/2020 Trigger middle finger of right hand 10/29/2020 Generalized osteoarthritis of hand 10/29/2020 Coccyx pain 12/24/2018 Arthritis 08/30/2018 Color vision deficiency 08/30/2018 History of laparoscopic adjustable gastric jose ng 08/30/2017 Pelvic floor dysfunction 10/20/2016 Prolapse of female pelvic organs 10/20/2016 Urinary incontinence 10/20/2016 Depression 08/17/2016 Adult BMI 36.0-36.9 kg/sq m 01/16/2015 Esophageal reflux 11/21/2014 Irritable bowel syndrome with constipation 04/09 Migraine headache 2013 Sleep apnea 01/21/2013 Overview (12/04/2019): Diagnosed before bariatric surgery. Has since stopped using CPAP. 12/04/19: Still snores. Sleep not restful and still has apneic episodes according to boyfriend. Acquired spondylolisthesis 12/18/2003 Resolved Problems Problem Noted Date Diagnosed Date Resolved Date Routine adult health maintenance 09/25/2017 03/22/2019 Encounter for pessary maintenance 10/20/2016 11/01/2019 Passive suicidal ideations 05/24/2016 1 05/23/2018 Strain of right trapezius muscle 08/04/2015 05/24/2019 Dyspepsia 11/21/2014 11/01/2019 Sexually transmitted disease exposure 09/04/2013 11/01/2019 Encounter for preventive health examination 12/25/2012 03/22/2019 Immunizations Name Administration Dates Next Due Covid-19 Monovalent (Moderna Spikevax) 12yrs+ () 08/28/2020,07/29/2020 DT Pediatric 10/27/1997 Influenza Quadrivalent, Pres ervative Free 12/21/2021 Influenza Unspecified Formulation 2010,01/05/2011(Deferred: Patient Refused - [facility] - xxInfluenza Declined; 05 Jan 2011; recorded on 01/05/2011 5:22:23 PM;),01/06/2010,01/24/2007 Pneumococcal 13-Valent Conju gate (Prevnar 13) 12/21/2021 Tdap (Adacel, Boostrix) 12/23/2008 Tetanus Toxoid, Absorbed 12/04/2019 Tuberculin Skin Test, PPD 08/04/2015 Family History Medical History Relation Comments Breast Cancer Neg Hx Social History Tobacco Use Types Packs/Day Years Used Date Smoking Tobacco: Former Smokeless Tobacco: Never Alcohol Use Standard Drinks/Week Comments Not Currently 0 (1 standard drink = 0.6 oz pur e alcohol) 5 in three months Sex and Gender Information Value Date Recorded Sex Assigned at Female 07/23/2020 5:27 AM EDT Gender Identity Female 07/23/2020 5:27 AM EDT Sexual Orientation Straight 08/03/2021 11 :17 AM EDT Last Filed Vital Signs Vital Sign Reading Time Taken Comments Blood Pressure 122/70 05/10/2021 12:57 PM EST Pulse 83 05/10/2021 12:57 PM EST Temperature 36 ??C (96.8 ??F) 05/10/2021 12:57 PM EST Respiratory Rate 16 09/23/2020 3:05 PM EDT Oxygen Saturation 99% 05/10/2021 12:57 PM EST Inhaled Oxygen Concentration - - Weight 84.2 kg (185 lb 9.6 oz) 05/10/2021 12:57 PM EST Height 154.9 cm (5' 1 ) 05/10/2021 12:57 PM EST Body Mass Index 35.07 05/10/2021 12:57 PM EST Plan of Treatment Health Maintenance Due Date Last Done Comments CT Colonography 1960 FIT DNA 1960 FIT 1960 Sigmoidoscopy (10 year) with FIT yearly 1960 Sigmoidoscopy 1960 Breast Cancer Share Decision Needed 2000 Zoster vaccine (1 of 2) 2010 Advance Directive 06/17/2015 HPV test 06/08/2021 06/08/2016 PAP Smear 06/08/2021 06/08/2016, 04/08/2011 Pneumoccocal Vaccine: 50+ (2 of 2 - PPSV23) 12/21/2022 12/21/2021 Colonoscopy 02/04/2023 02/04/2013 Colorectal Cancer Screening 02/04/2023 Breast Cancer screening 11/13/2023 11/13/19, 12/20/2019, 10/18/2017, Additional history exists Covid-19 Vaccine (3 - 2023-2 5 season) 2023 08/28/2020, 07/29/2020 Influenza (Flu) vaccine (1 o f 1 - Influenza standard series) 12/03/2023 12/21/2021, 01/15/2011, 01/06/2010, Additional history exists Tetanus/Diphtheria/Pertussis Vaccines (4 - Td or Tdap) 12/03/2029 12/04/2019, 12/23/2008, 10/27/1997 HIV screen Completed 09/04/2013 Hepatitis C Screening Completed 03/22/2019 Diabetes Screening (HgbA1C o r Glucose) Discontinued 05/04/2020, 11/01/2019, 07/08/2013, Additional history exists Lipid Screening Discontinued 01/08/2021, 11/01/2019 Procedures Procedure Name Priority Date/Time Associated Diagnosis Comments LIPID PANEL (REFLEX DIRECT LDL) Routine 01/08/2021 11:58 AM EDT Dyslipidemia HC VENIPUNCTURE STAT 05/04/2020 3:35 PM EST Left lower quadrant abdominal pain MAMMO SCREENING CAD AND SAM BILATERAL Routine 12/20/2019 2:51 PM EDT Encounter for screening mammogram for breast cancer HC VENIPUNCTURE Routine 03/22/2019 11:21 AM EST Need for hepatitis C screening test EXTERNAL PAP SMEAR RESULT PANEL Routine 06/08/2016 1:20 PM EST HIV SCREEN, 4TH GENERATION ([facility])PERFORMABL E Routine 09/04/2013 10:45 AM EDT EXTERNAL COLONOSCOPY RESULT Routine 02/04/2013 11:30 AM EST from Last 3 Months or Most Recently Relevant to Health Maintenance Results * Lipid Panel (Reflex Direct LDL) (01/08/2021 11:58 AM EDT) Cholesterol, Total 140 mg/dL [facility] Comment: Lower Risk: <200 mg/dL Average Risk: 200-239 mg/dL Higher Risk: >cv=073 mg/dL Triglyceride 42 mg/dL [facility] Comment: Average Risk/Lower Risk: <150 mg/dL Borderline High Risk: 150-199 mg/dL High Risk: 200-499 mg/dL Very High Risk: >sv=594 mg/dL HDL Cholesterol 75 mg/dL [facility] Comment: Males: ?? Higher Risk: <40 mg/dL Females: ?? Higher Risk: <50 mg/dL LDL Cholesterol 57 mg/dL [facility] Comment: Lowest Risk: <100 mg/dL Lower Risk: 100-129 mg/dL Borderline High Risk: 130-159 mg/dL High Risk: 160-189 mg/dL Very High Risk: >jq=752 mg/dL Cholesterol/HDL Ratio 1.9 ratio [facility] Lipid Interpretation See Note [facility] Comment: Lipid management should be guided by a patient? s ASCVD risk, goals and preferences. ACC/AHA Guidelines recommend high intensity statin if clinical ASCVD or LDL greater than or equal to 190 mg/dL. http://[email or web address]/MVQ-[email or web address] Adults aged 40-75 with LDL 70-189 mg/dL should have their 10 year ASCVD risk estimated with the ACC/AHA ASCVD risk civil estimator http://tools.acc.org/CYCEA-Achw-Ujzzhdlvg/ Statin should be discussed if risk greater than or equal to 7.5% in non-diabetics. With diabetes, moderate intensity statin is recommended if risk less than 7.5%, high intensity if risk greater than or equal to 7.5%. Annual lipid monitoring on statins is not necessary. Evaluate secondary causes of Triglycerides greater than 500 mg/dL or LDL greater than 190 mg/dL: See table 6 of ACC/AHA Guideline. Lifestyle modification is a critical component of ASCVD risk reduction. Blood 01/08/2021 11:5 8 AM EDT 01/08/2021 12:00 PM EDT Narrative Resulting Agency Comment Spec In Lab Minerva Morejon MD CHEMISTRY ORDERABLES [facility] [address] [place] [address] * (ABNORMAL) Comprehensive metabolic panel (non-fasting) (05/04/2020 3:35 PM EST) Glucose 100 65 - 199 mg/dL [facility] Comment:Diabetes: >=200 mg/d L plus symptoms Blood Urea Nitrogen 7(L) 8 - 18 mg/dL [facility] Creatinine 0.63(L) 0.70 - 1.20 mg/dL [facility] Sodium 137 135 - 145 mmol/L [facility] Potassium 4.2 3.5 - 5.0 mmol/L [facility] Comment: Please note: ??Patients with WBC >100,000 may have falsely elevated Potassium levels. ??For accurate Potassium quantification in these patients send serum separator tube (gold top) for subsequent determinations. ??Contact the Clinical Chemistry Laboratory if there are any questions. Chloride 99 98 - 107 mmol/L [facility] Carbon Dioxide 27 22 - 31 mmol/L [facility] Anion Gap 11 5 - 15 mmol/L [facility] Calcium 9.5 8.5 - 10.5 mg/dL [facility] Protein, Total 6.8 6.1 - 8.0 gm/dL [facility] Albumin 4.0 3.2 - 5.2 gm/dL [facility] Aspartate Aminotransferase 14 0 - 30 unit/L [facility] Alanine Aminotransferase 10 0 - 30 unit/L [facility] Alkaline Phosphatase 60 35 - 105 unit/L [facility] Bilirubin, Total 0.3 0.2 - 1.3 mg/dL [facility] Est Glomerular Filtration Rate 98 >=60 mL/min/1. 73 m?? [facility] Comment: This patient? s estimated glomerular filtration rate (eGFR) is between 98 mL/min/1.73 m2 (patients with less muscle mass per kg body weight) and 114 mL/min/1.73 m2 (patients with more muscle mass per kg body weight) as determined by the CKD-EPI equation. Assessment of eGFR is not appropriate when creatinine concentrations are rapidly changing. For clinical decisions where creatinine clearance will affect therapy, a 24-hour urine creatinine clearance may be advised. Assignment of CKD stage 1 ? 5 for patients with an eGFR near the transition point between stages may be based on clinical assessment of muscle mass and symptoms in addition to eGFR. Blood specimen (specimen) 05/04/2020 3:35 PM EST 05/04/2020 3:37 PM EST Narrative Resulting Agency Comment Spec In Lab Sergio Aviles CARDIAC SURGEON CHEMISTRY ORDERABLE S [facility] [address] [id number] * Mammo Screening Cad and Sam Bilateral (12/20/2019 2:51 PM EDT) Anatomical Region Laterality Modality Breast Bilateral Mammography Impressions 12/23/2019 9:14 AM EDT No mammographic evidence of malignancy. ??Routine screening suggested. BIRADS Category 1: Negative Thank you for letting us participate in the care of this patient. For questions regarding this report, please contact the number below. ? Electronically signed by: BEAR ROBERSON MD, [facility] ([phone]), at 12/23/2019 9:14 AM Narrative 12/23/2019 9:14 AM EDT EXAMINATION: MAMMO SCREENING CAD AND SAM BILATERAL CLINICAL HISTORY: routine screening TECHNIQUE: CC and MLO projections as well as tomography were reviewed. ??The films were also reviewed with the [employer] R2 Computer Aided Detection System. COMPARISON: Previous studies FINDINGS: There are scattered areas of fibroglandular density. No dominant mass or suspicious microcalcifications. ??Breasts are symmetric. ??There is no architectural distortion. ??Breast density category B. Minerva Morejon MD IMG MAMMO ORDERABLES * Hepatitis C Antibody (03/22/2019 11:21 AM EST) Pathologist [facility] Hepatitis C Antibody Negative Negative [facility] Blood specimen (specimen) 03/22/2019 11:21 AM EST 03/22/2019 11:22 AM EST Narrative Resulting Agency Comment Spec In Lab Minerva Morejon MD CHEMISTRY ORDERABLES [facility] [address] [place] [address] * (ABNORMAL) External Pap Smear (06/08/2016 1:20 PM EST) Pathologist [facility] HPV Interpretation NOT DETECTED(Exte rnal Lab) NOT DETECTED [facility] Comment: Sourced from [facility] Conversion External PAP Smear 06/08/2016 1:20:00 PM; See [employer] system for full report(Sprinkler Inspector al Lab) [facility] Comment: TESTS: ? SP and HPV DNA (1) ?CLINICAL HISTORY/INFORMATION: ?LMP DATE: N/P ?SOURCE: Cervix/endocervix ? CLINICAL INFO: Post Menopausal ? COMMENTS: NORMAL PAP HISTORY ? HORMONES: NOT PROVIDED ? SPECIMEN ADEQUACY: ? Satisfactory for Evaluation ? Endocervical/Transformation Zone component present ? FINAL INTERPRETATION ?? NEGATIVE FOR INTRAEPITHELIAL LESION OR MALIGNANCY ?Screener ? ELECTRONIC SIGNATURE ON FILE ?? VRW ? CT(ASCP) ?VRW ?CT(ASCP) ?The Pap is a screening test for cervical cancer. It is not a ? diagnostic test and is subject to false negative and false positive ?results. ??It is most reliable when a satisfactory sample, regularly ?obtained, is submitted with relevant clinical findings and history, ?and when the Pap result is evaluated along with historic and current ? clinical information. ?Please note: ??Source: ??OTHER Sourced from [facility] Conversion 06/08/2016 1:20 PM EST His Sylvie Provider EXTERNAL LAB ORDER JYOTI [facility] * (ABNORMAL) HIV Antibody Rapid Test (09/04/2013 10:45 AM EDT) Pathologist [facility] HIV Ab/Ag Rapid NEGATIVE( External Lab) NEGATIVE [facility] Comment: Sourced from [facility] Conversion 09/04/2013 10:4 5 AM EDT His Sylvie Provider CHEMISTRY ORDERABL ES [facility] * (ABNORMAL) External Colonoscopy (02/04/2013 11:30 AM EST) External Colonoscopy 02/04/2013 11:30:00 AM - See [employer] system for full report(Externa l Lab) [facility] Comment:Sourced from [facility] Conversion 02/04/2013 11:3 0 AM EST His Sylvie Provider EXTERNAL GI PROCED URE RESULT [facility] RESULT CONVERSION from Last 3 Months or Most Recently Relevant to Health Maintenance Advance Directives Documents on File Type Date Recorded Patient Field Interviewer Expl anation Personal Field Interviewer 11/27/2020 8:06 AM Declan Hugo partner
--- OUTSIDE RECORDS SUMMARY | 2024-06-11 06:37 | XMS_ITS | Encounter Summary ---
Author Organization [facility] Address [address] [facility] [address] [place] [id number] Phone Care Team Providers Care Funeral Planner Name Role Phone Karma Hudson [facility] Primary Care Provider [phone] Encounter Details Date Type Department Care Team (Late st Contact Info) Description 10/25/2021 Procedure Pass [address] [place] [address] Social History Tobacco Use Types Packs/Day Years Used Date Smoking Tobacco: Former Cigarettes 0.5 18 0 04/03/1971 - 04/03/1989 Smokeless Tobacco: Never Alcohol Use Standard Drinks/Week Comments Yes 0 (1 standard drink = 0.6 oz pur e alcohol) infrequent Sex and Gender Information Value Date Recorded Sex Assigned at Female 10/25/2021 6:37 PM EDT Gender Identity Female 10/25/2021 6:37 PM EDT Sexual Orientation Straight 10/25/2021 6: 37 PM EDT documented as of this encounter Plan of Treatment Not on file documented as of this encounter Visit Diagnoses Not on filedocumented in this encounter Additional Health Concerns Infection Onset Date Last Indicated Resolved Time CoV-Risk 05/24/2023 05/24/2023 06/04/2023 1:22 AM EST CoV-Risk Comment:Per Ambulatory Triage Form 05/10/2024 05/10/202405/21 1:21 AM EST Assessment Noted Time PHQ-2 Depression Total Score: 2 10/26/19 2:25 PM EDT documented as of this encounter Care Teams Funeral Planner Relationship Specialty Start Date End Date Karma Hudson September, LODGING MANAGER [address] [place] [address], [address] [place] [address] [email or web address] [email or web address] PCP - General Family Medicine 10/08/21 documented as of this encounter Additional Source Comments The information contained in this document represents components of the legal health record. It is not the complete legal health record.[facility]
--- OUTSIDE RECORDS SUMMARY | 2024-06-11 06:38 | XMS_ITS | Encounter Summary ---
Author Organization [facility] Address [address] [place] [address] Care Team Providers Care Technologist Infectious Disease Name Role Phone Minerva Morejon Primary Care Provider [phone] Reason for Visit * Reason Onset Date Comments confirm appt 02/15/2021 Encounter Details Date Type Department Care Team (Late st Contact Info) Description 02/15/2021 Telephone [facility] Central Scheduling Department [address] [place] [address] Telephone Intake, Staff confirm appt Social History Tobacco Use Types Packs/Day Years Used Date Smoking Tobacco: Never Assessed Comments Unknown Sex and Gender Information Value Date Recorded Sex Assigned at Female 03/07/2021 12:01 PM EST Legal Sex Female 7:13 AM EDT Gender Identity Female 03/07/2021 12:01 PM EST Sexual Orientation Straight 03/07/2021 12 :01 PM EST documented as of this encounter Miscellaneous Notes * Telephone Encounter - Marielle Soco - 02/15/2021 3:38 PM EST Neurology Pt confirming appt with Dorita Man on 03/02 I did confirm this appt with pt documented in this encounter Plan of Treatment Not on file documented as of this encounter Visit Diagnoses Not on filedocumented in this encounter Care Teams Technologist Infectious Disease Relationship Specialty Start Date End Date Minerva Morejon PCP - General Family Medicine 03/02/21 documented as of this encounter
--- OUTSIDE RECORDS SUMMARY | 2024-06-11 06:38 | XMS_ITS | Clinical Summary ---
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 Active omega-3 fatty acids 1,000 mg Cap Take 2 g by mouth. Active multivitamin per tablet Take 1 tablet by mouth daily. Active magnesium 250 mg Tab Take by mouth every other day. Active biotin 300 mcg Tab Take by mouth. Ac tive cetirizine (ZYRTEC) 10 MG tablet Take 10 mg by mouth. Active aspirin 81 MG EC tablet Take 81 mg by mouth daily. 11/25/2020 Active ascorbic acid, vitamin C, (VITAMIN C) 100 MG tablet Take 100 mg by mouth. Active atorvastatin (LIPITOR) 80 MG tabletIndications:His tory of CVA (cerebrovascular accident) Take 1 tablet (80 mg total) by mouth daily. 90 tablet 3 06/21/2023 Active tirzepatide, weight loss, (ZEPBOUND) 2.5 mg/0.5 mL subcutaneous injectionIndications: BMI 36.0-36.9,adult Inject 0.5 mL (2.5 mg total) under the skin every 7 days. 2 mL 06/30/2023 Active albuterol 90 mcg/actuation inhaler Inhale 2 puffs into the lungs every 6 (six) hours as needed for wheezing. 8 g 1 05/10/2024 Active benzonatate (TESSALON) 100 MG capsule Take 1 capsule (100 mg total) by mouth 3 (three) times a day as needed for cough. 30 capsule 05/10/2024 Active Active Problems Problem Noted Date Diagnosed Date Dysuria 01/17/2024 Assessment & Plan (01/17/2024 4:16 PM EDT): UA not convincing of UTI. Will send out for culture. Advised to stay well hydrated, pelvic food strengthening for potential symptoms secondary to prolapse. Pyridium for symptoms management. Follow up as needed. Hyperlipidemia 08/08/2023 Fall 08/03/2023 Assessment & Plan (08/03/2023 10:09 AM EDT): Margie presents after fall over the weekend. She is reporting diffuse right shoulder and low back pain. I have asked her to go for a xrays. Advised to continue acetaminophen as needed, lidocaine patches, heat/ice, and begin provided stretching exercises as tolerated. Advised to follow up if symptoms not improving with this treatment plan. Pain of left lower extremity 05/26/2023 Assessment & Plan (05/26/2023 9:13 AM EST): No signs of acute fracture. Potentially a high ankle hugo. She would like to get an XR to r/o hairline fracture. XR ordered. Pain of right eye 05/26/2023 Assessment & Plan (05/26/2023 9:12 AM EST): No signs of acute concern. Potentially dry from the air vs allergies. She has allergy eye drops at home that she will try. I also recommend a humidifier. Follow up if symptoms do not improve. Subacute cough 05/24/2023 Assessment & Plan (05/24/2023 3:10 PM EST): Margie presents for an ongoing cough for the past 2 weeks-not getting better. I will have her go for chest x-ray and I will update her with results. I informed her to call if there are any other issues or [id number] with her PCP next week- she will call if this gets worse. She understands and agrees. Other fatigue 05/24/2023 Assessment & Plan (05/24/2023 3:11 PM EST): Margie presents for ongoing fatigue. I will have her go for the above lab work to rule out infection or other causes of fatigue. I will also have her go for urinalysis and I will update her with these results. I advised her to follow-up with her PCP next week for ongoing care. She will call if her symptoms get worse or if there are any other issues or concerns. I gave guidance regarding symptomatic management for now. She understands and agrees. Severe obesity (BMI 35.0-39.9) with comorbidity 03/28/2023 History of adjustable gastric banding 10/26/2021 Assessment & Plan (06/07/2022 1:01 PM EST): Reports [facility] will not take her case because her BMI is too low - she has been advised that she would benefit from conversion of lap band over to gastric bypass Assessment & Plan (10/26/2021 6:59 PM EDT): We'll check if she can potentially have conversion to gastric sleeve through [facility] bariatric medicine. History of stroke 11/23/2020 Assessment & Plan (06/07/2022 1:00 PM EST): Secondary to left carotid artery occlusion - 11/23/20 Reports currently off lipitor for over a month due to severe GERD and intolerance of almost everything PO - we are switching her prilosec to pantoprazole and will try to help schedule her urgently with GI. Reviewed importance of maintaining on lipitor life long for secondary stroke prevention. Dupuytren's contracture 10/29/2020 Generalized osteoarthritis of hand 10/29/2020 Trigger middle finger of right hand 10/29/2020 Coccyx pain 12/24/2018 Arthritis 08/30/2018 Color vision deficiency 08/30/2018 Pelvic floor dysfunction 10/20/2016 Prolapse of female pelvic organs 10/20/2016 Assessment & Plan (06/07/2022 1:02 PM EST): She is using a pessary Assessment & Plan (10/26/2021 6:59 PM EDT): Referral to SENIOR TECHNICAL MANAGER to discuss pessary. Urinary incontinence 10/20/2016 Depressive disorder 08/17/2016 Assessment & Plan (06/07/2022 1:02 PM EST): Now off prozac and feels she is doing fine for now Assessment & Plan (10/26/2021 6:59 PM EDT): Well controlled at this time after discontinuing prozac a few months ago, she'll let me know if she desires to resume tx. Esophageal reflux 11/21/2014 Assessment & Plan (06/07/2022 1:02 PM EST): Severe sx right now, we'll try to help schedule a more urgent consult with GI (referral to Dr. Natasha Dodge), switch prilosec over to protonix Irritable bowel syndrome with constipation 04/09 Migraine 2013 Sleep apnea 01/21/2013 Overview (10/25/2021): Diagnosed before bariatric surgery. Has since stopped using CPAP. 12/04/19: Still snores. Sleep not restful and still has apneic episodes according to boyfriend. Diagnosed before bariatric surgery. Has since stopped using CPAP. 12/04/19: Still snores. Sleep not restful and still has apneic episodes according to boyfriend. Assessment & Plan (06/07/2022 1:00 PM EST): Reports this is resolved after bariatric surgery. Spondylolisthesis, acquired 12/18/2003 Assessment & Plan (10/26/2021 7:00 PM EDT): Follows with a chiropractor regularly. Encounters Date Type Department Care Team Description 05/10/2024 11:40 AM EST Office Visit [address] [address] Navjot Pro MD Viral URI with cough (Primary Dx); Acute cough 05/10/2024 Nurse Triage [facility] [address] [place] [address] Karma Hudson, INNA Triage (Red+SOB) 05/01/2024 2:37 PM EST - 05/01/2024 11:59 PM EST Hospital Encounter [address] [address] Karma Hudson, ENVIRONMENTAL PROTECTION ECONOMIST Discharge Disposition: Home or Self Care 04/01/2024 Orders Only [address] [address] Karma Hudson, ENVIRONMENTAL PROTECTION ECONOMIST Dysuria from Last 3 Months Immunizations Name Administration Dates Next Due COVID-19 (Pre-01/23) Moderna Vaccine, mRNA, PF 08/28/2020,07/29/2020 DT 10/27/1997 Influenza Quadrivalent Preservative Free IM 06/2022,12/21/2021 Influenza, Unspecified Formulation 01/15/2011,,01/24/2007 PPD Test 08/04/2015 Pneumococcal conjugate PCV13 12/21/2021 Td (adult) 5 Lf Tetanus Toxo id, PF, Adsorbed 12/04/2019 Tdap 12/23/2008 Tetanus toxoid, adsorbed 12/04/2019 Family History Medical History Relation Comments Heart attack Brother 1 Heart attack Father Lung disease Father COPD Mother Lung cancer Mother Diabetes type II Paternal Grandmother Relation Status Comments Brother 1 Brother 2 Alive Brother 3 Alive Brother 4 Alive Father Mother Paternal Grandmother Sister Alive Social History Tobacco Use Types Packs/Day Years Used Date Smoking Tobacco: Former Cigarettes 0.5 18 0 04/03/1971 - 04/03/1989 Smokeless Tobacco: Never Tobacco Cessation:Counseling Given: Not Answered Alcohol Use Standard Drinks/Week Comments Yes 0 (1 standard drink = 0.6 oz pur e alcohol) infrequent Child or Family Care Answer Date Record ed Do you have problems with on e of the following making it difficult for you to work, study, or receive health care? No 07/26/2023 Education Answer Date Recorded Are you interested in help w ith more adult education (for example, completing high school, GED, job training, learning the [place] language, technical skills, or developing parenting skills)? No 07/26/2023 Are you concerned about learning? Not on file 07/26/2023 No 07/26/2023 Yes 07/26/2023 Food Answer Date Recorded Within the past 6 months we worried whether our food would run out before we got money to buy more. Never True 07/26/2023 Within the past 6 months the food we bought just didn't last and we didn't have enough money to get more. Never True Residential Stability Answer Date Recor ded What is your housing situation today? I have jeremi sing 07/26/2023 How many times have you move d in the past 12 months? Zero (I did not move) 07/26/2023 Paying for Meds Answer Date Recorded Do you have trouble paying for medicines? No 07/26/2023 Paying Utility Bills Answer Date Record ed Do you have trouble paying your heating or elect ricity bill? Yes 07/26/2023 Transportation Answer Date Recorded Has the lack of transportati on kept you from medical appointments or from getting medications? No 07/26/2023 Digital Access Answer Date Recorded No 07/26/2023 Yes 07/26/2023 Do you have reliable internet access at home? Ye s 07/26/2023 Do you have a device (e.g., phone, tablet, computer) with a working camera? Yes 07/26/2023 Intimate Partner Violence Answer Date R ecorded Denied Basic Needs Not on file 07/26/2023 In the past 12 months have y ou been in a relationship with a person who hurts, threatens, or tries to control you? No 07/26/2023 Worried food would run out Not on file 07/25 In the past 12 months have y ou been in a relationship with a person who hurts, threatens, or tries to control you? No 07/26/2023 Sex and Gender Information Value Date Recorded Sex Assigned at Female 10/25/2021 6:37 PM EDT Gender Identity Female 10/25/2021 6:37 PM EDT Sexual Orientation Straight 10/25/2021 6: 37 PM EDT Last Filed Vital Signs Vital Sign Reading Time Taken Comments Blood Pressure 118/72 05/10/2024 11:26 AM EST Pulse 111 05/10/2024 11:26 AM EST Temperature 36.4 ??C (97.5 ??F) 05/10/2024 11:[address] Respiratory Rate - - Oxygen Saturation 97% 05/10/2024 11:26 AM EST Inhaled Oxygen Concentration - - Weight 94.3 kg (208 lb) 05/10/2024 11:26 AM EST Height 157.5 cm (5' 2.01 ) 01/17/2024 2:22 PM ED T Body Mass Index 38.03 01/17/2024 2:22 PM EDT Plan of Treatment Health Maintenance Due Date Last Done Comments HEPATITIS B SCREENING 1978 HIV ONE-TIME SCREENING (18-65 YEARS) 1978 COLOGUARD 2005 FIT TEST 2005 FOBT 2005 SIGMOIDOSCOPY 2005 VIRTUAL COLONOSCOPY 2005 ZOSTER VACCINES (1 of 2) 2010 PNEUMOCOCCAL VACCINES (50+ years) (2 of 2 - PPSV23) 12/21/2022 12/21/2021 INFLUENZA VACCINE (#1) 2023 , 12/21/2021, 01/15/2011, Additional history exists MAMMOGRAM 11/13/2023 11/12/2021, 12/02, 12/20/2019, Additional history exists DEPRESSION SCREENING 07/25/2024 07/26/2023, 07/26/19 SCREENING FOR DIABETES 06/22/2026 06/23/2023, 2022 PAP SMEAR 06/08/2027 06/07/2022, 06/01/2016 LIPID PANEL 06/22/2028 06/23/2023, 03/0 10/2022, 11/23/2020 Adult Td,Tdap Booster 12/03/2029 12/04/2019 , 12/04/2019, 12/23/2008 COLONOSCOPY 10/10/2032 10/10/2022, 02/01/2013 COLORECTAL CANCER SCREENING 10/10/2032 RSV VACCINE (1 - 1-dose 75+ series) 06/17/2035 HEPATITIS C SCREENING Completed 03/22/2019 COVID-19 VACCINE Completed 03/16/2024, 09/2022, 08/28/2020, Additional history exists SMOKING STATUS SCREENING (Once After 26 Yrs) Completed 05/10/2024 HEPATITIS A VACCINES Aged Out No long er eligible based on patient's age to complete this topic HEPATITIS B VACCINES Aged Out No long er eligible based on patient's age to complete this topic HIB VACCINES Aged Out No longer eligi ble based on patient's age to complete this topic MENINGOCOCCAL VACCINES (ACWY) Aged Out No longer eligible based on patient's age to complete this topic Medical Devices Not on file Procedures Procedure Name Priority Date/Time Associated Diagnosis Comments POCT COVID-19 RT-PCR/INFLUENZA A & B/RSV CEPHEID Routine 05/10/2024 12:31 PM EST Acute cough BD DXA AXIAL (SPINE) WITH HIP Routine 05/01/2024 2:58 PM EST Compression fracture of L4 lumbar vertebra, closed, initial encounter LIPID PANEL Routine 06/23/2023 7:11 AM EDT History of CVA (cerebrovascular accident) HM COLONOSCOPY FOR RESULT ENTRY ONLY Routine 10/10/2022 PAP TEST Routine 06/07/2022 12:00 AM EST BI MAMMOGRAM SCREENING WITH TOMOSYNTHESIS WITH CAD (BILATERAL) Routine 11/12/2021 4:06 PM EDT Encounter for screening mammogram for malignant neoplasm of breast from Last 3 Months or Most Recently Relevant to Health Maintenance Results * POCT COVID-19 RT-PCR/Influenza A & B/RSV (Cepheid) (05/10/2024 12:31 PM EST) Source Nasal swab SARS-CoV-2 (COVID-19) NEGATIVE-Va lid Control NEGATIVE-Va lid Control Influenza A Negative, Valid Control Negative, Valid Control Influenza B Negative, Valid Control Negative, Valid Control RSV Negative, Valid Control Negative, Valid Control Other 05/10/2024 12:3 1 PM EST Navjot Pro MD POINT OF CARE TEST O RDERABLES * BD DXA AXIAL (SPINE) WITH HIP (05/01/2024 2:58 PM EST) Anatomical Region Laterality Modality Bone Density Bone Density 05/01/2024 2:53 PM EST Impressions 05/01/2024 3:25 PM EST Interpretation: Osteopenia. ? Narrative 05/01/2024 3:25 PM EST Referred By: ??KARMA HUDSON Indications: Verterbral Abnormality ? Scanner: Yuepu Sifang A with serial# of [id number] located at [facility] ? Bone Density Scan (DXA) 05/01/24 ? Details of prior DXA scans are available by clicking View Image ? BMD ? T- ? Z- ? Skeletal Site ?gm/cm2 ??score ??score ??BMD Change Since Prior Scan ?------ ??----- ??----- ?? PA Spine (L1 L2 L3) ?0.831 ?? -1.70 ??-0.10 ??N/A ? Total Hip (Left) ? 0.721 ?? -1.80 ??-0.70 ??N/A ? Femoral Neck (Left) ?0.631 ?? -2.00 ??-0.50 ??N/A ? Total Hip (Right) ?0.708 ?? -1.90 ??-0.80 ??N/A ? Femoral Neck (Right) ?? 0.638 ?? -1.90 ??-0.40 ??N/A ?------ ??----- ??----- ?? * Denotes significant change when >= 0.022 g/cm2 for the spine, 0.027 g/cm2 ?? for the total hip, 0.029 g/cm2 for the femoral neck. ? Interpretation: Osteopenia. ? Technical Quality: The PA Spine scan was of marginal quality because of ? scoliosis (which can decrease or increase BMD). ? FRAX: Based on FRAX(r) 3.6 ([place] White female), this patient's likelihood of ?? hip fracture is 1.9% and major osteoporotic fracture is 15% over the next 10 ?? years. The patient reported the following risks of fracture on a ? questionnaire: previous fracture as an adult. ? Additional Information: -World Health Organization criteria classify adults based on lowest T-score ?? at PA spine, hip or forearm: Normal (T-score >= -1.0), Osteopenia (T-score ? between -1 and -2.5), or Osteoporosis (T-score <= -2.5). ??At [facility], ? T-scores are compared to peak bone density of a young white gender matched ? reference population. ? - For premenopausal women and men under the age of 50, Z-scores (comparison ?? to age, gender, and ethnicity matched reference population) are used: Above ?? expected range for age (Z-score >= 2.0), Within expected range of age ? (Z-score 1.9 to -1.9), or Below expected range for age (Z-score <= -2.0). ? - The Bone Health and Osteoporosis Foundation recommends that treatment be ? considered in men aged more than 50 years and in postmenopausal women with ? ANY of the following: Prior hip or vertebral fractures; T-score of <= -2.5 ? at the PA spine or hip; or 10 year fracture probability by FRAX of >= 3% for ?? the hip or >= 20% for major osteoporotic fracture. ? - The FRAX algorithm (https://www.marietta.ac.uk/FRAX/tool.aspx) is ? designed to predict 10-year fracture risk in treatment-naive adults between ?? the ages of 40 and 90. It is not intended to be used in those receiving ? pharmacologic osteoporosis treatment. ? - Including race/ethnicity in the generation of T- or Z-scores or in the ? FRAX calculation is complicated, and currently undergoing active review to ? ensure that we can give patients the best information on their risk of ? fracture. ? -Some prior studies may not be compatible with our comparison software. ? -Click on View Full Report to see subsequent pages with images and prior ? bone density results. ? Reviewed By: Vishnu Silva MD on 05/01/2024 15:25:26 Procedure Note Vishnu Silva MD - 05/01/2024 Referred By: KARMA HUDSON Indications: Verterbral Abnormality Scanner: Yuepu Sifang A with serial# of [id number] located at [facility] Bone Density Scan (DXA) 05/01/24 Details of prior DXA scans are available by clicking View Image BMD T- Z- Skeletal Site gm/cm2 score score BMD Change Since Prior Scan ------ ----- PA Spine (L1 L2 L3) 0.831 -1.70 -0.10 N/A Total Hip (Left) 0.721 -1.80 -0.70 N/A Femoral Neck (Left) 0.631 -2.00 -0.50 N/A Total Hip (Right) 0.708 -1.90 -0.80 N/A Femoral Neck (Right) 0.638 -1.90 -0.40 N/A ------ ----- * Denotes significant change when >= 0.022 g/cm2 for the spine, 0.027g/cm2 for the total hip, 0.029 g/cm2 for the femoral neck. Interpretation: Osteopenia. Technical Quality: The PA Spine scan was of marginal quality because of scoliosis (which can decrease or increase BMD). FRAX: Based on FRAX(r) 3.6 ([place] White female), this patient's likelihoodof hip fracture is 1.9% and major osteoporotic fracture is 15% over the next10 years. The patient reported the following risks of fracture on a questionnaire: previous fracture as an adult. Additional Information: -World Health Organization criteria classify adults based on lowestT-score at PA spine, hip or forearm: Normal (T-score >= -1.0), Osteopenia (T-score between -1 and -2.5), or Osteoporosis (T-score <= -2.5). At [facility], T-scores are compared to peak bone density of a young white gender matched reference population. - For premenopausal women and men under the age of 50, Z-scores(comparison to age, gender, and ethnicity matched reference population) are used:Above expected range for age (Z-score >= 2.0), Within expected range of age (Z-score 1.9 to -1.9), or Below expected range for age (Z-score <= -2.0). - The Bone Health and Osteoporosis Foundation recommends that treatment be considered in men aged more than 50 years and in postmenopausal women with ANY of the following: Prior hip or vertebral fractures; T-score of <= -2.5 at the PA spine or hip; or 10 year fracture probability by FRAX of >= 3%for the hip or >= 20% for major osteoporotic fracture. - The FRAX algorithm (https://www.marietta.ac.uk/FRAX/tool.aspx) is designed to predict 10-year fracture risk in treatment-naive adultsbetween the ages of 40 and 90. It is not intended to be used in those receiving pharmacologic osteoporosis treatment. - Including race/ethnicity in the generation of T- or Z-scores or in the FRAX calculation is complicated, and currently undergoing active review to ensure that we can give patients the best information on their risk of fracture. -Some prior studies may not be compatible with our comparison software. -Click on View Full Report to see subsequent pages with images and prior bone density results. Reviewed By: Vishnu Silva MD on 05/01/2024 15:25:26 IMPRESSION: Interpretation: Osteopenia. Karma Hudson ENVIRONMENTAL PROTECTION ECONOMIST IMG BD BONE DENSITY DEXA * (ABNORMAL) Lipid panel (06/23/2023 7:11 AM EDT) [facility] HDL 79 mg/dL [facility] Comment: ? Interpretation <40 mg/dL: Low HDL cholesterol (major risk factor for CHD) Greater than or equal to 60 mg/dL: High HDL cholesterol ( negative risk factor for CHD) HDL - cholesterol is affected by a number of factors, e.g. smoking, excerise, hormones, sex and age. CHOLESTEROL 235 0 - 240 mg/dL [facility] TRIGLYCERIDES 68 30 - 160 mg/dL [facility] LDL 142(H) 50 - 129 mg/dL [facility] Comment: LDL levels in terms of risk for coronary heart disease: <100 mg/dL: Optimal 100-129 mg/dL: Near or above optimal 130-159 mg/dL: Borderline high 160-189 mg/dL: High >190 mg/dL: Very High CARDIAC RISK RATIO 3.0(L) 3.3 - 4.4 [facility] Blood 06/23/2023 7:11 AM EDT 06/23/2023 7:17 AM EDT [facility] LAB BLOOD ORDERABLES [address] [address] * COLONOSCOPY FOR RESULT ENTRY ONLY (10/10/2022) [facility] HEALTH MAINTENANCE * Pap Test (06/07/2022 12:00 AM EST) 06/07/2022 06/08/2022 9:3 1 AM EST Narrative SEE NARRATIVE - 06/15/2022 11:46 AM EDT [address] [address] Senior Environmental Practice Leader: Irene Rankin MD ?? SENIOR TECHNICAL MANAGER Cytology Report FINAL DIAGNOSIS A. ??PAP SMEAR (SUREPATH) CE: SPECIMEN ADEQUACY: Satisfactory for evaluation; transformation zone present. INTERPRETATION: NEGATIVE FOR INTRAEPITHELIAL LESION OR MALIGNANCY. Electronically Signed Out By: ??SG Fung(ASCP) The Pap test is a screening test primarily for squamous cancers and precursors and has associated false-negative and false-positive results. ??New technologies such as liquid-based preparations may decrease but will not eliminate all false-negative results. ??Regular sampling and follow-up of unexplained clinical signs and symptoms are recommended to minimize false negative results. PROCEDURES/ADDENDA HPV Testing (Requested) Ordered Date: 06/08/2022 ? A. PAP SMEAR (SUREPATH) CE: ??Human Papilloma Virus Test NEGATIVE for high-risk Human Papilloma Virus types 16, 18, 45 and the Other high risk probe set (Includes 31, 33, 35, 39, 51, 52, 56, 58, 59, 66, 68) Note: Testing performed by [employer] HR-HPV analysis. ??Clinical correlation is advised. ??This HPV test was performed at [facility], [address] [place] [address]. This test has been FDA approved for [employer] cervical cytology specimens. The accuracy and precision of this test for all other specimen sources has been verified in the Cytopathology Laboratory of the [facility] and has not been cleared or approved by the U.S. Food and Drug Administration. Clinical correlation is advised. ? CLINICAL HISTORY Date of Last Menstrual Period: ??AGED 52 Menstrual History: ??Post Menopausal Other Clinical Conditions: ??Screening Pap SPECIMEN SOURCE A: PAP SMEAR (SUREPATH) CE Patient Name: ??TARBOX, MARGIE : ??1960 (Age: 61) Sex: ??F Institution: ??[facility] Location: ??[facility] Date of Collection: ??06/07/2022 Date of Reported: ??06/15/2022 11:46 Results to: Karma Hudson MSN Karma Hudson ENVIRONMENTAL PROTECTION ECONOMIST CYTOLOGY ORDERABLES SEE NARRATIVE * BI MAMMOGRAM SCREENING WITH TOMOSYNTHESIS WITH CAD (BILATERAL) (11/12/2021 4:06 PM EDT) Anatomical Region Laterality Modality Breast Left, Breast Right, Breast Bilateral Bila teral Mammography 11/19/2021 4:45 PM EDT Impressions 11/19/2021 4:56 PM EDT BILATERAL BREASTS: Benign, no specific mammographic evidence of malignancy. Normal interval follow-up is recommended in 12 months. BI-RADS: BI-RADS CATEGORY: ??2 - Benign finding. DENSITY: ??There are scattered fibroglandular densities. Narrative 11/19/2021 4:56 PM EDT STUDY: Bilateral screening mammography with tomosynthesis and CAD TECHNIQUE: Bilateral full-field digital screening mammography is obtained and read in conjunction with computer-aided detection. ??Tomosynthesis as well as 2-D C view imaging were obtained. ?? COMPARISON: December 20, 2019 and October 18, 2017 BREAST COMPOSITION: There are scattered areas ??of ??fibroglandular density RIGHT BREAST: No significant masses, suspicious calcifications or other abnormalities are seen. LEFT BREAST: ??Tissue marker from previous needle core biopsy. No significant masses, suspicious calcifications or other abnormalities are seen. Procedure Note Nadiya Colón MD - 11/19/2021 STUDY: Bilateral screening mammography with tomosynthesis and CAD TECHNIQUE: Bilateral full-field digital screening mammography is obtainedand read in conjunction with computer-aided detection. Tomosynthesis aswell as 2-D C view imaging were obtained. COMPARISON: December 20, 2019 and October 18, 2017 BREAST COMPOSITION: There are scattered areas of fibroglandulardensity RIGHT BREAST: No significant masses, suspicious calcifications or otherabnormalities are seen. LEFT BREAST: Tissue marker from previous needle core biopsy. Nosignificant masses, suspicious calcifications or other abnormalities areseen. IMPRESSION: BILATERAL BREASTS: Benign, no specific mammographic evidence ofmalignancy. Normal interval follow-up is recommended in 12 months. BI-RADS: BI-RADS CATEGORY: 2 - Benign finding. DENSITY: There are scattered fibroglandular densities. Karma Hudson ENVIRONMENTAL PROTECTION ECONOMIST IMG MG EXAMS from Last 3 Months or Most Recently Relevant to Health Maintenance Care Teams Cement Finishing Supervisor Relationship Specialty Start Date End Date Karma Hudson Sole, [facility] [address] [place] [address], [address] [place] [address] [email or web address] PCP - General Family Medicine 10/08/21 Additional Source Comments The information contained in this document represents components of the legal health record. It is not the complete legal health record.[facility]
--- OUTSIDE RECORDS SUMMARY | 2024-06-11 06:38 | XMS_ITS | Encounter Summary ---
Author Organization [facility] Address [address] [place] [address] Care Team Providers Care Vice President Process Name Role Phone Minerva Morejon Primary Care Provider Encounter Details Date Type Department Care Team (Late st Contact Info) Description 06/02/2022 NativeEnergyhart Message [facility] HB Revenue Cycle Management [address] [place] [address] Mychart, Generic Provider [facility] [place] [id number] Payment Plan Social History Tobacco Use Types Packs/Day Years Used Date Smoking Tobacco: Former Smokeless Tobacco: Former Alcohol Use Standard Drinks/Week Comments Yes 0 (1 standard drink = 0.6 oz pur e alcohol) Comments Unknown Sex and Gender Information Value [...] on filedocumented in this encounter Care Teams Vice President Process Relationship Specialty Start Date End Date Minerva Morejon PCP - General Family Medicine 03/02/21 documented as of this encounter
--- OUTSIDE RECORDS SUMMARY | 2024-06-11 06:38 | XMS_ITS | Encounter Summary ---
Author Organization [facility] Address [address] [place] [address] Care Team Providers Care Legal Executive Name Role Phone Minerva Morejon Primary Care Provider [phone] Reason for Visit * Reason Onset Date Comments COVERAGE 06/07/2021 Encounter Details Date Type Department Care Team (Late st Contact Info) Description 06/07/2021 Telephone [facility] [address] [place] [address] [phone] Telephone Intake, Staff COVERAGE Social History Tobacco Use Types Packs/Day Years [...] encounter Miscellaneous Notes * Telephone Encounter - Vickie Macario - 06/07/2021 2:29 PM EST Caller: [employer] Reason for call coverage Provider: Pt listed for appt on 06/07/2021 called [employer] [phone] spoke with July call ref # [id number] Plan effect 09/15/2020 - [facility] network Per July patient is approved for 1 visit per speciality with a $50.00 Per Managed Care site, Multi Plan / PHCS no referral required States w/logo no ref required Pt is aware Please route your response back to the [facility] Neurology Admin Staff Pool. Thank you documented in this encounter Plan of Treatment Not on file documented as of this encounter Visit Diagnoses Not on filedocumented in this encounter Care Teams Legal Executive Relationship Specialty Start Date End Date Minerva Morejon PCP - General Family Medicine 03/02/21 documented as of this encounter
--- OUTSIDE RECORDS SUMMARY | 2024-06-11 06:38 | XMS_ITS | Encounter Summary ---
Author Organization [facility] Address [address] [place] [address] Phone Care Team Providers Care Informatics Consultant Name Role Phone Karma Hudson [facility] Primary Care Provider [phone] Reason for Visit * Reason Onset Date Comments Triage 05/03/2024 Red+SOB Encounter Details Date Type Department Care Team (Late st Contact Info) Description 05/10/2024 Nurse Triage [facility] [address] [place] [address] [facility] [address] [facility] [address] [place] [address] [email or web address] Triage (Red+SOB) Social History Tobacco Use Types Packs/Day Years [...] high school, GED, job training, learning the [place] language, technical skills, or developing parenting skills)? [...] PM EDT documented as of this encounter Progress Notes * Drea Tijerina LPN - 05/10/2024 9:08 AM EST Scheduled SDV w/ Dr Pro this morning. Has had cough, chills, cough and intermittent SOB. Denphamwas exposed to family member w/ Flu A. Nurse Triage Encounter Note Reason for Triage Margie Carey contacted office for Triage Red+SOB Call Disposition Schedule Same Day Visit/Appt Schedule Visit With 3 Business Days Disposition Comments: Patient/caregiver understands and will follow disposition: Yes Initial Symptom Screening and Assessment IA None Care Advice Patient/Caregiver understands and will follow care advice?: Yes, plans to follow advice [id number] Drea Tijerina LPN MonMay 10, 2024 09:09 AM Disposition and First Aid GO TO OFFICE NOW: * You need to be examined. Come into the office right now. * IF NO AVAILABLE APPOINTMENTS: You need to be seen in an Urgent Care Center. Go to the one at [facility]. Leave now. A nearby Urgent Care Center is often a good source of care. Another choice is to go to the Emergency Department. General Care Advice for Mild to Moderate Cough COUGH MEDICINES: * COUGH DROPS: Ywia-vfe-pdfrxsl cough drops can help a lot, especially for mild coughs. They soothean irritated throat and remove the tickle sensation in the back of the throat. Cough drops are easyto carry with you. * COUGH SYRUP WITH DEXTROMETHORPHAN: An egde-tmw-pqhkiwh cough syrup can help your cough. The most common cough suppressant in cccz-tkl-bbixqcn cough medicines is dextromethorphan. * HOME REMEDY - HARD CANDY: Hard candy works just as well as fzvd-xzf-xyugipa cough drops. People who have diabetes should use sugar-free candy. * HOME REMEDY - HONEY: This old home remedy has been shown to help decrease coughing at night. The adult dosage is 2 teaspoons (10 ml) at bedtime. Honey should not be given to infants under one year of age. HUMIDIFIER: * If the air is dry, use a humidifier in the bedroom. * Dry air makes coughs worse. Cough with Cold Symptoms PAIN AND FEVER MEDICINES - EXTRA NOTES AND WARNINGS: * Use the lowest amount of medicine that makes your pain or fever better. * Acetaminophen is thought to be safer than ibuprofen or naproxen in people over 65 years old. Acetaminophen is in many OTC and prescription medicines. It might be in more than one medicine that you are taking. You need to be careful and not take an overdose. An acetaminophen overdose can hurt the liver. * [employer], the company that makes Tylenol, has different dosage instructions for Tylenol in [place] and the [place]. In [place], the maximum recommended dose per day is 4,000 mg or twelve Regular-Strength (325 mg) pills. In the [place], [employer] recommends a maximum dose of ten Regular-Strength (325 mg) pills. * CAUTION: Do not take acetaminophen if you have liver disease. * CAUTION: Do not take ibuprofen if you have stomach problems, kidney disease, are , or have been told by your doctor to avoid this type of anti- inflammatory drug. Do not take ibuprofen for more than 7 days without consulting your doctor. * Before taking any medicine, read all the instructions on the package. Patient will call back with additional questions or if symptoms change or worsen Drea Tijerina LPN Reason for Disposition and Assessment Reason for Disposition MILD difficulty breathing (e.g., minimal/no SOB at rest, SOB with walking, pulse <100) and stillpresent when not coughing Cough has been present for > 3 weeks Protocols used: [id number] * Liv Hameed - 05/10/2024 8:42 AM EST Red Call Intake Call Back Number: (if not patient, name/relationship and if patient is with caller) [phone] Red Symptom(s): Triage (Red+SOB) When did these symptoms start? 05/03/24 Have you ever experienced these symptoms before? NO Additional information: Pt states walking across the room makes her sob. Transfer LIVE call to RN for prompt triage Reason for Call = TRIAGE Comment = RED + symptom Scripting: Please hold on the line while I get a clinical steam plant operator to further assist you.?? documented in this encounter Plan of Treatment Not on file documented as of this encounter Visit Diagnoses Not on filedocumented in this encounter Additional Health Concerns Infection Onset Date Last Indicated Resolved Time CoV-Risk Comment:Per Ambulatory Triage Form 05/10/2024 05/10/202405/21 1:21 AM EST Assessment Noted Time PHQ-9 Depression Total Score: 9 07/26/19 24 1:30 PM EDT PHQ-2 Depression Total Score: 3 07/26/19 1:30 PM EDT documented as of this encounter Care Teams Informatics Consultant Relationship Specialty Start Date End Date Karma Hudson Sole, [facility] [address] [place] [address], [address] [place] [address] [email or web address] PCP - General Family Medicine 10/08/21 documented as of this encounter Additional Source Comments The information contained in this document represents components of the legal health record. It is not the complete legal health record.[facility]
--- OUTSIDE RECORDS SUMMARY | 2024-06-11 06:38 | XMS_ITS | Clinical Summary ---
Author Organization [facility] Address [address] [place] [address] Care Team Providers Care Supply Chain Buyer Name Role Phone Minerva Morejon Primary Care Provider Allergies Active Allergy Reactions Criticality Noted Date Comments Animal Dander Unknown 08/16/2017 Hydrocodone-Acetaminophen Angioedema High 12/18/2003 No allergy to acetaminophen Levonorgestrel-Ethinyl Estrad Unknown 08/16/2017 Propranolol Swelling High 12/18/2003 Unknown swelling location Medications ascorbic acid, vitamin C, (VITAMIN C) 100 mg tablet Take 100 mg by mouth once a day. Active cetirizine (ZyrTEC) 10 mg tablet Take 10 mg by mouth once a day. Active vitamin B complex capsule Take 1 capsule by mouth once a day. Active diphenhydrAMINE (BENADRYL) 25 mg capsule Take 25 mg by mouth every 6 hours as needed. Active FLUoxetine (PROzac) 40 mg capsule Take 1 capsule by mouth once a day. 1 Active multivitamin (THERAGRAN) tablet Take 1 tablet by mouth once a day. Active aspirin 81 mg EC tablet Take 1 tablet (81 mg total) by mouth once a day. 30 tablet 2 1 Active biotin 300 mcg tablet Take by mouth. Activ e collagen, bovine, 100 % powder Apply topically to the affected area. Active magnesium 250 mg tablet Take by mouth every other day. Active omega-3 fatty acids 1,000 mg capsule Take 2 g by mouth. Active vitamin E 100 unit capsule Take 100 Units by mouth. Active POTASSIUM CHLORIDE ORAL Take 50 mg by mouth every other day. Active atorvastatin (LIPITOR) 80 mg tabletIndicatio ns:Cerebrovascu lar accident (CVA) due to embolism of left middle cerebral artery (HCC) take 1 tablet by mouth every evening 30 tablet 2 3 Active Active Problems Problem Noted Date Diagnosed Date Cerebrovascular accident (CV A) due to embolism of left middle cerebral artery 11/24/2020 Acute CVA (cerebrovascular accident) 11/23/2020 Trigger middle finger of right hand 10/29/2020 Generalized osteoarthritis of hand 10/29/2020 Dupuytren's contracture 10/29/2020 Coccyx pain 12/24/2018 Color vision deficiency 08/30/2018 Arthritis 08/30/2018 History of laparoscopic adjustable gastric jose ng 08/30/2017 Pelvic floor dysfunction 10/20/2016 Prolapse of female pelvic organs 10/20/2016 Urinary incontinence 10/20/2016 Depression 08/17/2016 Esophageal reflux 11/21/2014 Irritable bowel syndrome with constipation 04/09 Migraine headache 2013 Sleep apnea 01/21/2013 Overview (11/24/2020): Diagnosed before bariatric surgery. Has since stopped using CPAP. 12/04/19: Still snores. Sleep not restful and still has apneic episodes according to boyfriend. Acquired spondylolisthesis 12/18/2003 Social History Tobacco Use Types Packs/Day Years [...] Orientation Straight 03/07/2021 12 :01 PM EST Last Filed Vital Signs Vital Sign Reading Time Taken Comments Blood Pressure 121/77 06/07/2021 2:11 PM EST Pulse 86 06/07/2021 2:11 PM EST Temperature 36.9 ??C (98.5 ??F) 06/07/2021 2:11 PM ES T Respiratory Rate 16 06/07/2021 2:11 PM EST Oxygen Saturation 99% 11/24/2020 4:30 PM EDT Inhaled Oxygen Concentration - - Weight 87.5 kg (193 lb) 03/02/2021 3:15 PM EST Height 154.9 cm (5' 1 ) 06/07/2021 2:11 PM EST Body Mass Index 36.47 03/02/2021 3:15 PM EST Plan of Treatment Health Maintenance Due Date Last Done Comments Cervical Cancer Screening 1960 Cologuard 1960 Colon Cancer Screening 1960 Colonoscopy 1960 FOBT / Fit Test 1960 HIV Screening 1960 HPV and Pap Smear 1960 Hepatitis C Screening 1960 Pap Smear 1960 Sigmoidoscopy [address] Lung Cancer Screening (Baseline) 2010 Pneumococcal Vaccine: 50+ Years (1 of 1 - PCV) 2010 Zoster Vaccines (1 of 2) 2010 DTaP,Tdap,and Td Vaccines (3 - Td or Tdap) 12/23/2018 12/23/2008, 10/27/1997 COVID-19 Vaccine (3 - 2023-2 5 season) 2023 08/28/2020, 07/29/2020 Influenza Vaccine (#1) 2023 1, 01/06/2010, 01/24/2007 Alcohol/Substance Use Screening 04/03/2024 Depression Evaluation 04/03/2024 Social Drivers of Health Annual Screening 04/03/2024 RSV Vaccine (60+ years old a nd patients) (1 - 1-dose 75+ series) 06/17/2035 Hepatitis B Vaccines Aged Out No long er eligible based on patient's age to complete this topic Medical Devices Implanted Type Area Global Marketing Intern Device Identifier Shelf Expiration Date Model / Serial / Lot Device Closure Vascular Plug 8fr Angio-Seal Vip - [id number] Implanted:Qty: 1 on 11/23/2020 at [facility] Implant [employer] [id number] / / Insurance GENERIC MULTIPLAN Advance Directives Documents on File Type Date Recorded Patient Project Facilitator Expl [facility] Care Proxy 11/25/2020 2:42 PM 11-24 * Presumed Full Code (Latest Code Status on File) Date Activated Date Inactivated Comments 11/24/2020 10:27 AM 11/24/2020 8:41 PM Care Teams Supply Chain Buyer Relationship Specialty Start Date End Date Minerva Morejon PCP - General Family Medicine 03/02/21
--- OUTSIDE RECORDS SUMMARY | 2024-06-11 06:38 | XMS_ITS | Referral Summary ---
Author Organization [facility] Address [address] [place] [address] Care Team Providers Care Gasoline Truck Operator Name Role Phone Minerva Morejon Primary Care Provider [phone] Allergies Active Allergy Reactions Criticality Noted Date [...] 03/02/2021 3:15 PM EST Plan of Treatment Not on file Medical Devices Implanted Type Area Supervisor [employer] Device Identifier Shelf Expiration Date Model / Serial / Lot Device Closure Vascular Plug 8fr Angio-Seal Vip - [id number] Implanted:Qty: 1 on 11/23/2020 at [facility] Implant [employer] [id number] / / Insurance GENERIC MULTIPLAN Advance Directives Documents on File Type Date Recorded Patient Car Ferry Master Expl anation Health Care Proxy 11/25/2020 2:42 PM 11-24 * Presumed Full Code (Latest Code Status on File) Date Activated Date Inactivated Comments 11/24/2020 10:27 AM 11/24/2020 8:41 PM Care Teams Gasoline Truck Operator Relationship Specialty Start Date End Date Minerva Morejon PCP - General Family Medicine 03/02/21
== END 2024-06-11 06:34 | disposition home or self-care (01) ==
LOC: CF 06:33
PROVIDERS: Visit Provider Anesthesiology
DX: M46.1 Sacroiliitis, not elsewhere classified (principal); M53.3 Sacrococcygeal disorders, not elsewhere classified
CPT/HCPCS: 27096; J2003; J2795; J3301; Q9967

== ENCOUNTER 2024-06-11 13:09 | Outpatient (AMB) | payer OTHER, SELFPAY ==
[2024-06-11 13:18] VITALS: BP 117/60; PULSE 97; RESP 16; O2SAT 95
--- NOTE | 2024-06-11 13:18 | A.OFFVIS_ITS ---
Vital Signs 06/11/24 13:18 BP 117/60 Blood Pressure Location Lt brachial Position Sitting Respiration 16 Pulse 97 Pulse Source Pulse Oximeter Pulse Oximetry (%) 95 Oxygen Delivery Method Room Air Intake Visit Reasons: BILATERAL THERAPEUTIC SIJ INJECTIONS Health Care Assistant Required: No Accompanied by: Allergies propranolol Allergy (Verified 06/11/24 13:19) Swelling [facility] Social History (Updated 01/22/24 @ 14:44 by Magda Fuentes) Alcohol intake: current Patient Tobacco Use Status: Never used Tobacco Physical Exam Vital Signs: Last Vital Signs Pulse 97 06/11/24 13:18 Resp 16 06/11/24 13:18 BP 117/60 06/11/24 13:18 Pulse Ox 95 06/11/24 13:18 Oxygen Delivery Method Room Air 06/11/24 13:18 Assessment & Plan Assessment & Plan (1) Sacroiliac joint dysfunction of both sides: Code(s): M53.3 - Sacrococcygeal disorders, not elsewhere classified Category: Medical (2) Sacroiliitis: Code(s): M46.1 - Sacroiliitis, not elsewhere classified Category: Medical Plan Bilateral therapeutic sacroiliac joint injection. Informed consent was thoroughly explained to the patient before the procedure.? The patient came to the operating room.? She was positioned prone on operating table with a pillow under her abdomen.? Time-out was performed delineating correct site and side of the procedure, nature of the injection, name and date of of the patient. The lower back and upper buttocks of the patient was prepped with ChloraPrep and draped with sterile utility towels.? C-arm was brought over the operating field the image of the sacroiliac joint was demonstrated on the screen. Significant sacroiliac joint diastasis was noted on the screen. Sacroiliac joint instability most likely is the cause of this patient's pain. Tilting machine contralateral to the left the anterior portion of sacroiliac joint was superimposed of the posterior portion of the sacroiliac joint. After that projection of the sacroiliac joint to the skin was injected with mixture of lidocaine 2 % and ropivacaine 0.5% to form a skin wheal. After that 22 gauge 3- 1/2 inch needle was inserted through the skin wheal and advanced to the sacroiliac joint. After that injection of the contrast was performed delineating intrathecal spread of the contrast. After that injection of the ropivacaine 0.5% 5 cc mixed with Kenalog 40 mg was performed into the joint. After that the procedure was repeated on the left side in the mirroring fashion. The needle was removed sterile Band-Aid was applied. Patient tolerated the pr ocedure well. Orders: Orders FL guidance in treatment room Today M46.1 - Sacroiliitis, not elsewhere classified, M53.3 - Sacrococcygeal disorders, not elsewhere classified Coding Level of Care Code Procedure Only Diagnoses Sacroiliac joint dysfunction of both sides M53.3 Sacroiliitis M46.1
--- OUTSIDE RECORDS SUMMARY | 2024-06-11 15:57 | XMS_ITS | Encounter Summary ---
Author Organization [facility] Address [address] [place] [address] Care Team Providers Care Home Care Aide Name Role Phone Minerva Morejon Primary Care Provider [phone] Reason for Visit * Reason Onset Date Comments confirm appt 02/15/2021 Encounter Details Date Type Department Care Team (Late st Contact Info) Description 02/15/2021 Telephone [facility] Central Scheduling Department [address] [place] [address] Telephone Intake, Staff confirm appt Social History [...] on filedocumented in this encounter Care Teams Home Care Aide Relationship Specialty Start Date End Date Minerva Morejon PCP - General Family Medicine 03/02/21 documented as of this encounter
--- OUTSIDE RECORDS SUMMARY | 2024-06-11 15:57 | XMS_ITS | Clinical Summary ---
Author Organization [facility] Address [address] [place] [address] Care Team Providers Care Nonfarm Animal Caretaker Name Role Phone Minerva Morejon Primary Care Provider [phone] Allergies Active Allergy Reactions Criticality Noted Date [...] this topic Medical Devices Implanted Type Area Dentist Device Identifier Shelf Expiration Date Model / Serial / Lot Device Closure Vascular Plug 8fr Angio-Seal Vip - [id number] Implanted:Qty: 1 on 11/23/2020 at [facility] Implant [employer] [id number] / / Insurance GENERIC MULTIPLAN Advance Directives Documents on File Type Date Recorded Patient Information Services Vice President Expl [facility] Care Proxy 11/25/2020 2:42 PM 11-24 * Presumed Full Code (Latest Code Status on File) Date Activated Date Inactivated Comments 11/24/2020 10:27 AM 11/24/2020 8:41 PM Care Teams Nonfarm Animal Caretaker Relationship Specialty Start Date End Date Minerva Morejon PCP - General Family Medicine 03/02/21
--- OUTSIDE RECORDS SUMMARY | 2024-06-11 15:57 | XMS_ITS | Clinical Summary ---
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 11/23/2020 Overview (01/07/2021): Underwent thrombectomy at [facility] Dupuytren's contracture 10/29/2020 Trigger middle finger [...] 1:20 PM EST HIV SCREEN, 4TH GENERATION ([facility])PERFORMABL E Routine 09/04/2013 10:45 AM EDT EXTERNAL COLONOSCOPY RESULT Routine 02/04/2013 11:30 AM EST from Last 3 Months or Most Recently Relevant to Health Maintenance Results * Lipid Panel (Reflex Direct LDL) (01/08/2021 11:58 AM EDT) Cholesterol, Total 140 mg/dL [facility] Comment: Lower Risk: <200 mg/dL Average Risk: 200-239 mg/dL Higher Risk: >ye=621 mg/dL Triglyceride 42 mg/dL [facility] Comment: Average Risk/Lower Risk: <150 mg/dL Borderline High Risk: 150-199 mg/dL High Risk: 200-499 mg/dL Very High Risk: >ej=297 mg/dL HDL Cholesterol 75 mg/dL [facility] Comment: Males: ?? Higher Risk: <40 mg/dL Females: ?? Higher Risk: <50 mg/dL LDL Cholesterol 57 mg/dL [facility] Comment: Lowest Risk: <100 mg/dL Lower Risk: 100-129 mg/dL Borderline High Risk: 130-159 mg/dL High Risk: 160-189 mg/dL Very High Risk: >kf=190 mg/dL Cholesterol/HDL Ratio 1.9 ratio [facility] Lipid Interpretation See Note [facility] Comment: Lipid management should be guided by a patient? s ASCVD risk, goals and preferences. ACC/AHA Guidelines recommend high intensity statin if clinical ASCVD or LDL greater than or equal to 190 mg/dL. http://[email or web address]/VRI-KQT-[email or web address] Adults aged 40-75 with LDL 70-189 mg/dL should have their 10 year ASCVD risk estimated with the ACC/AHA ASCVD risk commercial roofing estimator http://tools.acc.org/YCOIP-Fulw-Kcfyaagdw/ Statin should be discussed if risk greater [...] In Lab Minerva Morejon MD CHEMISTRY ORDERABLES [facility] [address] [place] [address] * (ABNORMAL) Comprehensive metabolic panel (non-fasting) (05/04/2020 3:35 PM EST) Glucose 100 65 - 199 mg/dL [facility] Comment:Diabetes: >=200 mg/d L plus symptoms Blood Urea Nitrogen 7(L) 8 - 18 mg/dL [facility] Creatinine 0.63(L) 0.70 - 1.20 mg/dL [facility] Sodium 137 135 - 145 mmol/L [facility] Potassium 4.2 3.5 - 5.0 mmol/L [facility] Comment: Please note: ??Patients with WBC >100,000 may have falsely elevated Potassium levels. ??For accurate Potassium quantification in these patients send serum separator tube (gold top) for subsequent determinations. ??Contact the Clinical Chemistry Laboratory if there are any questions. Chloride 99 98 - 107 mmol/L [facility] Carbon Dioxide 27 22 - 31 mmol/L [facility] Anion Gap 11 5 - 15 mmol/L [facility] Calcium 9.5 8.5 - 10.5 mg/dL [facility] Protein, Total 6.8 6.1 - 8.0 gm/dL [facility] Albumin 4.0 3.2 - 5.2 gm/dL [facility] Aspartate Aminotransferase 14 0 - 30 unit/L [facility] Alanine Aminotransferase 10 0 - 30 unit/L [facility] Alkaline Phosphatase 60 35 - 105 unit/L [facility] Bilirubin, Total 0.3 0.2 - 1.3 mg/dL [facility] Est Glomerular Filtration Rate 98 >=60 mL/min/1. 73 m?? [facility] Comment: This patient? s estimated [...] Agency Comment Spec In Lab Sergio Aviles GLASS CURVATURE GAUGER CHEMISTRY ORDERABLE S [facility] [address] [place] [id number] * Mammo Screening Cad and Sam Bilateral [...] by: BEAR ROBERSON MD, [facility] ([phone]), at 12/23/2019 9:14 AM Narrative 12/23/2019 9:14 AM EDT EXAMINATION: MAMMO SCREENING CAD AND SAM BILATERAL CLINICAL HISTORY: routine screening TECHNIQUE: CC and MLO projections as well as tomography were reviewed. ??The films were also reviewed with the [employer] R2 Computer Aided Detection System. COMPARISON: Previous studies FINDINGS: There are scattered areas of fibroglandular density. No dominant mass or suspicious microcalcifications. ??Breasts are symmetric. ??There is no architectural distortion. ??Breast density category B. Minerva Morejon MD IMG MAMMO ORDERABLES * Hepatitis C Antibody (03/22/2019 11:21 AM EST) Pathologist [facility] [place] Hepatitis C Antibody Negative Negative [facility] Blood specimen (specimen) 03/22/2019 11:21 AM EST 03/22/2019 11:22 AM EST Narrative Resulting Agency Comment Spec In Lab Minerva Morejon MD CHEMISTRY ORDERABLES [facility] [address] [place] [address] * (ABNORMAL) External Pap Smear (06/08/2016 1:20 PM EST) Pathologist [facility] HPV Interpretation NOT DETECTED(Exte rnal Lab) NOT DETECTED [facility] Comment: Sourced from [facility] Conversion External PAP Smear 06/08/2016 1:20:00 PM; See DOCUSYS system for full report(Technology Development Intern al Lab) [facility] Comment: TESTS: ? SP and [...] His Sylvie Provider EXTERNAL LAB ORDER JYOTI [facility] * (ABNORMAL) HIV Antibody Rapid Test (09/04/2013 10:45 AM EDT) Pathologist [facility] [place] HIV Ab/Ag Rapid NEGATIVE( External Lab) NEGATIVE [facility] RES[facility] CONVERSION Comment: Sourced from [facility] Conversion 09/04/2013 10:4 5 AM EDT His Sylvie Provider CHEMISTRY ORDERABL ES [facility] RESULT CONVERSION * (ABNORMAL) External Colonoscopy (02/04/2013 11:30 AM EST) External Colonoscopy 02/04/2013 11:30:00 AM - See DOCUSYS system for full report(Externa l Lab) [facility] Comment:Sourced from [facility] Conversion 02/04/2013 11:3 0 AM EST His Sylvie Provider EXTERNAL GI PROCED URE RESULT [facility] RESULT CONVERSION from Last 3 Months or Most Recently Relevant to Health Maintenance Advance Directives Documents on File Type Date Recorded Patient Manager Harbor Expl anation Personal Manager Harbor 11/27/2020 8:06 AM Declan Hugo partner
--- OUTSIDE RECORDS SUMMARY | 2024-06-11 15:57 | XMS_ITS | Encounter Summary ---
Author Organization [facility] Address [address] [place] [address] Care Team Providers Care Surveying Crew Stake Runner Name Role Phone Minerva Morejon Primary Care Provider [phone] Encounter Details Date Type Department Care Team (Late st Contact Info) Description 06/02/2022 PharmaGenhart Message [facility] HB Revenue Cycle Management [address] [place] [address] Mychart, Generic Provider [facility] [place] [phone] Payment Plan Social History Tobacco Use Types [...] on filedocumented in this encounter Care Teams Surveying Crew Stake Runner Relationship Specialty Start Date End Date Minerva Morejon PCP - General Family Medicine 03/02/21 documented as of this encounter
--- OUTSIDE RECORDS SUMMARY | 2024-06-11 15:57 | XMS_ITS | Encounter Summary ---
Author Organization [facility] Address [address] [place] [address] Care Team Providers Care Rampman Name Role Phone Minerva Morejon Primary Care Provider [phone] Reason for Visit * Reason Onset Date Comments COVERAGE 06/07/2021 Encounter Details Date Type Department Care Team (Late st Contact Info) Description 06/07/2021 Telephone [facility] [address] [place] [address] [phone] Telephone Intake, Staff COVERAGE Social History Tobacco [...] for appt on 06/07/2021 called [employer] [phone] spoke with July call ref # [id number] Plan effect 09/15/2020 - [facility] network Per July patient is approved for 1 visit per speciality with a $50.00 Per Managed Care site, Multi Plan / PHCS no referral required States w/logo no ref required Pt is aware Please route your response back to the [facility] Neurology Admin Staff Pool. Thank you documented in this encounter Plan of Treatment Not on file documented as of this encounter Visit Diagnoses Not on filedocumented in this encounter Care Teams Rampman Relationship Specialty Start Date End Date Minerva Morejon PCP - General Family Medicine 03/02/21 documented as of this encounter
--- OUTSIDE RECORDS SUMMARY | 2024-06-11 15:57 | XMS_ITS | Referral Summary ---
Author Organization [facility] Address [address] [place] [address] Care Team Providers Care Assistant Professor Of Art Name Role Phone Minerva Morejon Primary Care Provider [phone] Allergies Active Allergy Reactions Criticality Noted Date [...] on file Medical Devices Implanted Type Area Social Work Coordinator Device Identifier Shelf Expiration Date Model / Serial / Lot Device Closure Vascular Plug 8fr Angio-Seal Vip - [id number] Implanted:Qty: 1 on 11/23/2020 at [facility] Implant [employer] [id number] / / Insurance GENERIC MULTIPLAN Advance Directives Documents on File Type Date Recorded Patient Absorption Operator Expl anation Health Care Proxy 11/25/2020 2:42 PM 11-24 * Presumed Full Code (Latest Code Status on File) Date Activated Date Inactivated Comments 11/24/2020 10:27 AM 11/24/2020 8:41 PM Care Teams Assistant Professor Of Art Relationship Specialty Start Date End Date Minerva Morejon PCP - General Family Medicine 03/02/21
--- OUTSIDE RECORDS SUMMARY | 2024-06-11 15:57 | XMS_ITS | Encounter Summary ---
Author Organization [facility] Address [address] [place] [address] Care Team Providers Care Vessel Slagman Name Role Phone Minerva Morejon Primary Care Provider [phone] Encounter Details Date Type Department Care Team (Late st Contact Info) Description 11/23/2020 Telephone [facility] Interventional Radiology [address] [place] [phone] Mara Guillory RN Social History Tobacco Use [...] on filedocumented in this encounter Care Teams Vessel Slagman Relationship Specialty Start Date End Date Minerva Morejon PCP - General Family Medicine 03/02/21 documented as of this encounter
--- OUTSIDE RECORDS SUMMARY | 2024-06-11 15:57 | XMS_ITS | Encounter Summary ---
Author Organization [facility] Address [address] [facility] [address] [place] [phone] Phone Care Team Providers Care Stave Cutter Name Role Phone Karma Hudson [facility] Primary Care Provider [phone] Encounter Details Date Type Department Care Team (Late st Contact Info) Description 10/25/2021 Procedure Pass [address] [place] [address] Social History Tobacco Use Types Packs/Day Years [...] documented as of this encounter Care Teams Stave Cutter Relationship Specialty Start Date End Date Karma Hudson September, EXPANSION ENVELOPE MAKER HAND [address] [place] [address], [address] [place] [address] maria [email or web address] PCP - General Family Medicine 10/08/21 documented as of this encounter Additional Source Comments The information contained in this document represents components of the legal health record. It is not the complete legal health record.[facility]
--- OUTSIDE RECORDS SUMMARY | 2024-06-11 15:58 | XMS_ITS | Encounter Summary ---
Author Organization [facility] Address [address] [place] [address] Phone Care Team Providers Care See Wheeler Name Role Phone Karma Hudson [facility] Primary Care Provider [phone] Reason for Visit * Reason Onset Date Comments Triage 05/03/2024 Red+SOB Encounter Details Date Type Department Care Team (Late st Contact Info) Description 05/10/2024 Nurse Triage [facility] [address] [place] [address] [facility] [address] [facility] [address] [place] [address] maria [email or web address] Triage (Red+SOB) Social History Tobacco Use Types [...] high school, GED, job training, learning the Gabonese language, technical skills, or developing parenting skills)? [...] care advice?: Yes, plans to follow advice [id number] Drea Tijerina LPN MonMay 10, 2024 09:09 AM Disposition and First Aid GO TO OFFICE NOW: * You need to be examined. Come into the office right now. * IF NO AVAILABLE APPOINTMENTS: You need to be seen in an Urgent Care Center. Go to the one at [facility]. Leave now. A nearby Urgent Care Center is often a good source of care. Another choice is to go to the Emergency Department. General Care Advice for Mild to Moderate Cough COUGH MEDICINES: * COUGH DROPS: Oiqi-byz-xqppfdn cough drops can help a lot, especially for mild coughs. They soothean irritated throat and remove the tickle sensation in the back of the throat. Cough drops are easyto carry with you. * COUGH SYRUP WITH DEXTROMETHORPHAN: An gjli-azj-wgrdchy cough syrup can help your cough. The most common cough suppressant in unpy-wuf-hpvksuj cough medicines is dextromethorphan. * HOME REMEDY - HARD CANDY: Hard candy works just as well as utox-vxh-kccmwpk cough drops. People who have diabetes should [...] acetaminophen overdose can hurt the liver. * [employer], the company that makes Tylenol, has different dosage instructions for Tylenol in [place] and the [place]. In [place], the maximum recommended dose per day is 4,000 mg or twelve Regular-Strength (325 mg) pills. In the [place], [employer] recommends a maximum dose of ten Regular-Strength [...] present for > 3 weeks Protocols used: [id number]-IA * Liv Hameed - 05/10/2024 8:42 AM EST Red Call Intake Call Back Number: (if not patient, name/relationship and if patient is with caller) [phone] Red Symptom(s): Triage (Red+SOB) When did these symptoms start? 05/03/24 Have you ever experienced these symptoms before? NO Additional information: Pt states walking across the room makes her sob. Transfer LIVE call to RN for prompt triage Reason for Call = TRIAGE Comment = RED + symptom Scripting: Please hold on the line while I get a clinical donor services team leader to further assist you.?? documented in this [...] documented as of this encounter Care Teams See Wheeler Relationship Specialty Start Date End Date Karma Hudson Sole, [employer] [address] [place] [address], [address] [place] [address] maria [email or web address] PCP - General Family Medicine 10/08/21 documented as of this encounter Additional Source Comments The information contained in this document represents components of the legal health record. It is not the complete legal health record.[facility]
== END 2024-06-11 13:56 | disposition home or self-care (01) ==
LOC: HO.PMCPRC 13:09
PROVIDERS: PCP Nurse Practitioner Family; Visit Provider Anesthesiology
DX: M53.3 Sacrococcygeal disorders, not elsewhere classified (principal); M46.1 Sacroiliitis, not elsewhere classified
CPT/HCPCS: 27096

== ENCOUNTER 2024-06-26 12:32 | Outpatient (AMB) | payer OTHER, SELFPAY ==
[2024-06-26 13:08] VITALS: BP 132/90; PULSE 88; O2SAT 97; BMI 38.9
--- NOTE | 2024-06-26 13:08 | A.OFFVIS_ITS ---
Vital Signs 06/26/24 13:08 Height 5 ft 1 in Weight 206 lb BMI 38.9 BP 132/90 H Blood Pressure Location Rt brachial Position Sitting Pulse 88 Pulse Source Pulse Oximeter Pulse Oximetry (%) 97 Oxygen Delivery Method Room Air Intake Visit Reasons: BILATERAL THERAPEUTIC SIJ INJECTIONS Work Adjustment Instructor Required: No Allergies propranolol Allergy (Verified 06/26/24 13:08) Swelling Medication List - Last Reconciled 06/26/24 by Loida Hernández, AVIATION SAFETY OFFICER aspirin (Adult Aspirin Regimen) 81 mg PO DAILY atorvastatin 80 mg PO DAILY famotidine (Zantac-360 (famotidine)) 20 mg PO DAILY HPI Comments Details: Margie is back in my office after bilateral therapeutic sacroiliac joint injection. She reports absence of pain in the lower back. She reports some minor discomfort in the upper shoulders and upper thoracic spine. She reports excellent mobility. She reports good social interactions. We decided she will give us a call when her pain will start to come back to schedule yet another bilateral therapeutic sacroiliac joint injection. Results of diagnostic bilateral sacroiliac joint injection: no pain for the next 5-6 hours after the procedure. She reports improved mobility she was able to perform for job with better mobility and better activities of daily living. Results of the MRI: There are multiple changes on the MRI including compression fracture of L4. The L4 compression fracture unfortunately is completely healed and unamenable to kyphoplasty. This is the area of her body where she complains on most of her pain. She was examined last time and sacroiliac joint injection was offered for her. She is scheduled for this procedure to diagnose or reject the idea that sacroiliac joint is the cause of her pain. There is also changes on L2-L3 and L3-L4 foramina is on the right were there is significant stenosis. We can try to perform transforaminal epidural steroid injections at those levels to alleviate the pain in the upper back with tingling sensation in the anterior thigh on the right. There is also possibility to try diagnose medial branch block L3-L4 dorsal ramus L5 and maybe this location will be proven to be her pain generators. [facility] Social History (Updated 01/22/24 @ 14:44 by Magda Fuentes) Alcohol intake: current Patient Tobacco Use Status: Never used Tobacco Review of Systems Const All systems reviewed & are unremarkable except as noted in HPI and below ENT Reports Normal hearing present Neuro Reports Normal hearing present, Denies Abnormal speech present, Denies confusion and Denies Sensory deficit (Neuro) Psych Denies confusion Physical Exam Vital Signs: Last Vital Signs Pulse 88 06/26/24 13:08 BP 132/90 H 06/26/24 13:08 Pulse Ox 97 06/26/24 13:08 Oxygen Delivery Method Room Air 06/26/24 13:08 BMI result Body Mass Index 38.9 Const General: no acute distress; No confusion Nutritional Appearance: obese morbidly obese Orientation/consciousness: patient oriented x3 and No confusion Eyes General: appearance normal, both eyes and all related structures Pupils: Equal, round and reactive pupils present EOM: EOMs intact bilaterally Neck Neck: Yes full ROM Chest Chest palpation & inspection: normal inspection of the chest Resp Effort & Inspection: normal respiratory effort, able to speak in complete sentences, normal respiratory pattern, no audible wheezes and no cough Cardio Jugular venous distension: no JVD GI Inspection: Yes normal to inspection Back/Spine/Pelvis Other: On physical exam she is able to flex herself backwards with minimal difficulty and she is able to flex forward however experience severe pain on flexing forward. Able to walk on bilateral tiptoes in bilateral heels demonstrating normal strength of bilateral lower extremities. Rolf test is positive on the bilateral, pelvic compression test is positive bilaterally, pelvic distraction test is positive bilaterally. Fourteen finger test is positive bilaterally. Percussion of the projection of L4 vertebral results in severe pain. Tenderness on palpation on the entire lumbar spine. Valsalva maneuver is positive on pain increase in lumbar spine.. Neuro General: patient oriented x3, gait normal and No confusion Cranial nerves: Yes CN's II-XII intact bilaterally, Yes Equal, round and reactive pupils present, Yes Normal hearing present and Yes Ability to bilaterally elevate shoulders present Speech: No Abnormal speech present Gait exam (Neuro): Normal gait present Motor exam (neuro): 5/5 motor strength present throughout Sensory Exam: No Sensory deficit (Neuro) Extrem General: No pedal edema Psych Speech and movement: Normal speech and movement present Affect: normal affect Attitude: cooperative Thought process: Normal thought process present Thought content: Normal thought content present Insight: Good insight present (Psych) Judgement: Good judgement present (Psych) Assessment & Plan Assessment & Plan (1) Compression fracture of L4 vertebra: Code(s): S32.040A - Wedge compression fracture of fourth lumbar vertebra, initial encounter for closed fracture Category: Medical (2) Sacroiliitis: Code(s): M46.1 - Sacroiliitis, not elsewhere classified Category: Medical (3) Sacroiliac joint dysfunction of both sides: Code(s): M53.3 - Sacrococcygeal disorders, not elsewhere classified Category: Medical (4) Spondylosis of lumbar region without myelopathy or radiculopathy: Code(s): M47.816 - Spondylosis without myelopathy or radiculopathy, lumbar region Category: Medical (5) Disc degeneration, lumbar: Code(s): M51.369 - Other intervertebral disc degeneration, lumbar region without mention of lumbar back pain or lower extremity pain Category: Medical (6) Radiculopathy, lumbar region: Code(s): M54.16 - Radiculopathy, lumbar region Category: Medical (7) Chronic pain syndrome: Code(s): G89.4 - Chronic pain syndrome Category: Medical Plan Very promising results of bilateral diagnostic sacroiliac joint injection. Great results of therapeutic sacroiliac joint injection bilateral. She reports no pain in the lower lumbar spine. She denies pain in the projection of sacral bone. Reported some spastic sensation in bilateral hips, magnesium supplementation recommended for the patient. On the MRI as above there are some severe foraminal stenosis on the right L2-L3 L3-L4. She complains on tingling sensation on the right thigh. She complains on pain in the projection of the upper lumbar spine as well. This could be a target of the diagnostic as well as therapeutic transforaminal L2-L3/L3-L4 epidural steroid injection. Unfortunately the compression fracture of L4 can not be treated anymore with kyphoplasty because it is completely healed. If the injections as above will not be helpful the pain of the patient can be addressed with neuromodulation. Coding Level of Care Code Est Pt Level 3 (09027) Diagnoses Compression fracture of L4 vertebra S32.040A Sacroiliitis M46.1 Sacroiliac joint dysfunction of both sides M53.3 Spondylosis of lumbar region without myelopathy or radiculopathy M47.816 Disc degeneration, lumbar M51.369 Radiculopathy, lumbar region M54.16 Chronic pain syndrome G89.4
== END 2024-06-26 13:12 | disposition home or self-care (01) ==
LOC: HO.PMC 12:32
PROVIDERS: PCP Nurse Practitioner Family; Visit Provider Anesthesiology
DX: S32.040A Wedge compression fracture of fourth lumbar vertebra, initial encounter for closed fracture (principal); M46.1 Sacroiliitis, not elsewhere classified; M53.3 Sacrococcygeal disorders, not elsewhere classified; M47.816 Spondylosis without myelopathy or radiculopathy, lumbar region; M51.369 Other intervertebral disc degeneration, lumbar region without mention of lumbar back pain or lower extremity pain; M54.16 Radiculopathy, lumbar region; G89.4 Chronic pain syndrome
CPT/HCPCS: 99213

== ENCOUNTER 2024-11-04 14:48 | Outpatient (AMB) | payer OTHER, SELFPAY ==
--- OUTSIDE RECORDS SUMMARY | 2024-11-04 14:52 | XMS_ITS | Encounter Summary ---
Author Organization [facility] Address [facility] [employer] [address] [address] Phone Care Team Providers Care Pail Tester Name Role Phone Karma Hudson [facility] Primary Care Provider [phone] Encounter Details Date Type Department Care Team (Late st Contact Info) Description 10/25/2021 Procedure Pass [address] [place] [address] Social History Tobacco Use Types Packs/Day Years Used Date Smoking Tobacco: Former Cigarettes 0.5 18 0 04/03/1971 - 04/03/1989 Smokeless Tobacco: Never Alcohol Use Standard Drinks/Week Comments Yes 0 (1 standard drink = 0.6 oz pur e alcohol) infrequent Comments No Sex and Gender Information Value Date Recorded Sex Assigned at Female 10/25/2021 6:37 PM EDT Legal Sex Female 9:15 AM EDT Gender Identity Female 10/25/2021 6:37 PM EDT Sexual Orientation Straight 10/25/2021 6: 37 PM EDT documented as of this encounter Plan of Treatment Upcoming Encounters Date Type Department Care Team (Late st Contact Info) Description 08/06/2024 Procedure Pass [address] [place] [address] 11/08/2024 3:00 PM EDT Office Visit [address] [place] [address] Mumtaz Saavedra DO [address] [facility], [address] [place] [address] 02/21/2025 1:15 PM EST Appointment [address] [place] [address] Karma Hudson FNP [address] [facility], [address] [place] [address] maria del documented as of this encounter Visit Diagnoses Not on filedocumented in this encounter Additional Health Concerns Infection Onset Date Last Indicated Resolved Time CoV-Risk 05/24/2023 05/24/2023 06/04/2023 1:22 AM EST CoV-Risk Comment:Per Ambulatory Triage Form 05/10/2024 05/10/202405/21 1:21 AM EST Assessment Noted Time PHQ-2 Depression Total Score: 2 10/26/19 2:25 PM EDT documented as of this encounter Care Teams Pail Tester Relationship Specialty Start Date End Date Karma Hudson FNP [address] [facility], [address] [place] [address] mar[place] PCP - General Family Medicine 10/08/21 documented as of this encounter Additional Source Comments The information contained in this document represents components of the legal health record. It is not the complete legal health record.[facility]
--- OUTSIDE RECORDS SUMMARY | 2024-11-04 14:52 | XMS_ITS | Clinical Summary ---
Author Organization [facility] Address [facility] [place] [address] Care Team Providers Care Qualifications Examiner Name Role Phone Unavailable Primary Care Provider Unavailabl e Allergies Active Allergy Reactions Criticality Noted Date Comments Animal Dander 08/16/2017 Hydrocodone-Acetaminophen Angioedema High 12/18/2003 Propranolol 12/18/2003 Levonorgestrel-Ethinyl Estrad 2017 Medications multivitamin (THERAGRAN) Tablet Take 1 tablet by [...] carbonate (CALCIUM 300 ORAL) Take by mouth. Active magnesium 250 mg Tablet Take by mouth. Active POTASSIUM CHLORIDE ORAL Take 50 mg by mouth every other day. Active atorvastatin (Lipitor) 40 mg Tablet Take 40 mg by mouth daily. Active aspirin EC 81 mg Tablet, Delayed Release (E.C.) Take 81 mg by mouth daily. Active FLUoxetine (PROzac) 40 mg CapsuleIndicatio ns:Depression, unspecified depression type take 1 capsule by mouth once daily 30 capsule 12 05/11/2022 Active Active Problems Patient Care Coordination No te Formatting of this note migh t be different from the original. 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 11/23/2020 Overview (01/07/2021): Underwent thrombectomy at [facility] Dupuytren's contracture 10/29/2020 Trigger [...] for preventive health examination 12/25/2012 03/22/2019 Immunizations Immunization Administration Dates Next Due Covid-19 Monovalent (Moderna Spikevax) 12yrs+ ([id number]) 08/28/2020,07/29/2020 DT Pediatric 10/27/1997 Influenza Quadrivalent, Pres [...] pur e alcohol) 5 in three months Comments No Sex and Gender Information Value Date Recorded Sex Assigned at Female 07/23/2020 5:27 AM EDT Legal Sex Female 6:18 AM EST Gender Identity Female 07/23/2020 5:27 AM EDT Sexual Orientation Straight 08/03/2021 11 :17 AM EDT Last Filed Vital Signs Vital Sign Reading Time Taken Comments Blood Pressure 122/70 05/10/2021 12:57 PM EST Pulse 83 05/10/2021 12:57 PM EST Temperature 36 C (96.8 F) 05/10/2021 12:57 PM EST Respiratory Rate 16 [...] Pneumoccocal Vaccine: 50+ (2 of 2 - PCV20 or PCV21) 12/21/2022 12/21/2021 Colonoscopy 02/04/2023 02/04/2013 Colorectal Cancer Screening 02/04/2023 Breast Cancer screening 11/13/2023 11/13/19, 12/20/2019, 10/18/2017, Additional history exists Covid-19 Vaccine (3 - 2023-2 5 season) 2023 08/28/2020, 07/29/2020 Influenza (Flu) vaccine (1 o f 1 - Influenza standard series) 12/02/2024 12/21/2021, 01/15/2011, 01/06/2010, Additional history exists Tetanus/Diphtheria/Pertussis [...] 1:20 PM EST HIV SCREEN, 4TH GENERATION ([facility])PERFORMABL E Routine 09/04/2013 10:45 AM EDT EXTERNAL COLONOSCOPY RESULT Routine 02/04/2013 11:30 AM EST from Last 3 Months or Most Recently Relevant to Health Maintenance Results * Lipid Panel (Reflex Direct LDL) (01/08/2021 11:58 AM EDT) Cholesterol, Total 140 mg/dL [facility] Comment: Lower Risk: <200 mg/dL Average Risk: 200-239 mg/dL Higher Risk: >gs=828 mg/dL Triglyceride 42 mg/dL [facility] Comment: Average Risk/Lower Risk: <150 mg/dL Borderline High Risk: 150-199 mg/dL High Risk: 200-499 mg/dL Very High Risk: >hd=040 mg/dL HDL Cholesterol 75 mg/dL [facility] Comment: Males: Higher Risk: <40 mg/dL Females: Higher Risk: <50 mg/dL LDL Cholesterol 57 mg/dL [facility] Comment: Lowest Risk: <100 mg/dL Lower Risk: 100-129 mg/dL Borderline High Risk: 130-159 mg/dL High Risk: 160-189 mg/dL Very High Risk: >zl=851 mg/dL Cholesterol/HDL Ratio 1.9 ratio [facility] Lipid Interpretation See Note [facility] Comment: Lipid management should be guided by a patient s ASCVD risk, goals and preferences. ACC/AHA Guidelines recommend high intensity statin if clinical ASCVD or LDL greater than or equal to 190 mg/dL. http://BreakTheCrates.comurBiophotonic Solutions.com/JZL-FDS-Otcvhrqtw Adults aged 40-75 with LDL 70-189 mg/dL should have their 10 year ASCVD risk estimated with the ACC/AHA ASCVD risk slip cover estimator http://tools.acc.org/CLSXR-Jrog-Lzzbverip/ Statin should be discussed if risk greater [...] Narrative Resulting Agency Comment Spec In Lab us Minerva Morejon MD CHEMISTRY ORDERABLES Final Res ult [facility] [address] [place] [address] * (ABNORMAL) Comprehensive metabolic panel (non-fasting) (05/04/2020 3:35 PM EST) Glucose 100 65 - 199 mg/dL [facility] Comment:Diabetes: >=200 mg/d L plus symptoms Blood Urea Nitrogen 7(L) 8 - 18 mg/dL [facility] Creatinine 0.63(L) 0.70 - 1.20 mg/dL [facility] Sodium 137 135 - 145 mmol/L [facility] Potassium 4.2 3.5 - 5.0 mmol/L [facility] Comment: Please note: Patients with WBC >100,000 may have falsely elevated Potassium levels. For accurate Potassium quantification in these patients send serum separator tube (gold top) for subsequent determinations. Contact the Clinical Chemistry Laboratory if there are any questions. Chloride 99 98 - 107 mmol/L [facility] Carbon Dioxide 27 22 - 31 mmol/L [facility] Anion Gap 11 5 - 15 mmol/L [facility] Calcium 9.5 8.5 - 10.5 mg/dL [facility] Protein, Total 6.8 6.1 - 8.0 gm/dL [facility] Albumin 4.0 3.2 - 5.2 gm/dL [facility] Aspartate Aminotransferase 14 0 - 30 unit/L [facility] Alanine Aminotransferase 10 0 - 30 unit/L [facility] Alkaline Phosphatase 60 35 - 105 unit/L [facility] Bilirubin, Total 0.3 0.2 - 1.3 mg/dL [facility] Est Glomerular Filtration Rate 98 >=60 mL/min/1. 73 m [facility] Comment: This patient s estimated glomerular filtration rate (eGFR) is [...] be advised. Assignment of CKD stage 1 5 for patients with an eGFR near the transition point between stages may be based on clinical assessment of muscle mass and symptoms in addition to eGFR. Blood specimen (specimen) 05/04/2020 3:35 PM EST 05/04/2020 3:37 PM EST Narrative Resulting Agency Comment Spec In Lab us Sergio Aviles WEB MASTER CHEMISTRY ORDERABLES Final Result [facility] [address] [place] [address] * Mammo Screening Cad and Sam Bilateral (12/20/2019 2:51 PM EDT) Anatomical Region Laterality Modality Breast Bilateral Mammography Impressions 12/23/2019 9:14 AM EDT No mammographic evidence of malignancy. Routine screening suggested. BIRADS Category 1: Negative Thank you for letting us participate in the care of this patient. For questions regarding this report, please contact the number below. Electronically signed by: BEAR ROBERSON MD, [facility] ([phone]), at 12/23/2019 9:14 AM Narrative 12/23/2019 9:14 AM EDT EXAMINATION: MAMMO SCREENING CAD AND SAM BILATERAL CLINICAL HISTORY: routine screening TECHNIQUE: CC and MLO projections as well as tomography were reviewed. The films were also reviewed with the [employer] Computer Aided Detection System. COMPARISON: Previous studies FINDINGS: There are scattered areas of fibroglandular density. No dominant mass or suspicious microcalcifications. Breasts are symmetric. There is no architectural distortion. Breast density category B. us Minerva Morejon MD IMG MAMMO ORDERABLES Final Res ult * Hepatitis C Antibody (03/22/2019 11:21 AM EST) Hepatitis C Antibody Negative Negative [facility] Blood specimen (specimen) 03/22/2019 11:21 AM EST 03/22/2019 11:22 AM EST Narrative Resulting Agency Comment Spec In Lab us Minerva Morejon MD CHEMISTRY ORDERABLES Final Res ult [facility] [address] [place] [address] * (ABNORMAL) External Pap Smear (06/08/2016 1:20 PM EST) HPV Interpretation NOT DETECTED(Exte rnal Lab) NOT DETECTED [facility] Comment: Sourced from [facility] Conversion External PAP Smear 06/08/2016 1:20:00 PM; See Peek[employer] system for full report(Gill Box Fixer al Lab) [facility] Comment: TESTS: SP and HPV DNA (1) CLINICAL HISTORY/INFORMATION: LMP DATE: N/P SOURCE: Cervix/endocervix CLINICAL INFO: Post Menopausal COMMENTS: NORMAL PAP HISTORY HORMONES: NOT PROVIDED SPECIMEN ADEQUACY: Satisfactory for Evaluation Endocervical/Transformation Zone component present FINAL INTERPRETATION NEGATIVE FOR INTRAEPITHELIAL LESION OR MALIGNANCY Screener ELECTRONIC SIGNATURE ON FILE VRW CT(ASCP) VRW CT(ASCP) The Pap is a screening test for cervical cancer. It is not a diagnostic test and is subject to false negative and false positive results. It is most reliable when a satisfactory sample, regularly obtained, is submitted with relevant clinical findings and history, and when the Pap result is evaluated along with historic and current clinical information. Please note: Source: OTHER Sourced from [facility] Conversion 06/08/2016 1:20 PM EST us His [facility] Provider EXTERNAL LAB ORDERABLES Fi nal Result Performing Organization Address [facility] de Phone Number [facility] * (ABNORMAL) HIV Antibody Rapid Test (09/04/2013 10:45 AM EDT) HIV Ab/Ag Rapid NEGATIVE( External Lab) NEGATIVE [facility] Comment: Sourced from [facility] [place] Conversion 09/04/2013 10:4 5 AM EDT us His Juan Diego Provider CHEMISTRY ORDERABLES Final Result Performing Organization Address [facility] de Phone Number [facility] RESULT CONVERSION * (ABNORMAL) External Colonoscopy (02/04/2013 11:30 AM EST) External Colonoscopy 02/04/2013 11:30:00 AM - See [employer] system for full report(Externa l Lab) [facility] Comment:Sourced from [facility] [place] Conversion 02/04/2013 11:3 0 AM EST us His [place] Provider EXTERNAL GI PROCEDURE RESU LT Final Result Performing Organization Address [facility] de Phone Number [facility] RESULT CONVERSION from Last 3 Months or Most Recently Relevant to Health Maintenance Insurance [id number] (Home) [address] [address] [employer] Advance Directives Documents on File Type Date Recorded 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
--- OUTSIDE RECORDS SUMMARY | 2024-11-04 14:52 | XMS_ITS | Encounter Summary ---
Author Organization [facility] Address [address] [place] [address] Care Team Providers Care Window Treatment Installer Name Role Phone Minerva Morejon Primary Care Provider [phone] Encounter Details Date Type Department Care Team (Late st Contact Info) Description 11/23/2020 Telephone [facility] Interventional Radiology [address] [place] [address] Mara Guillory RN Social History Tobacco Use [...] on filedocumented in this encounter Care Teams Window Treatment Installer Relationship Specialty Start Date End Date Minerva Morejon PCP - General Family Medicine 03/02/21 documented as of this encounter
--- NOTE | 2024-11-04 15:03 | MHC.OFFVIS ---
Intake Visit Reasons: stress incontinence/interested Bulkamid injection Intake Note: New patient presents today for initial visit for stress incontinence/interested Bulkamid injection Urology Medication:none Blood Thinner:Aspirin Antibiotic Allergies:None PVR:90ml Allergies propranolol Allergy (Verified 11/04/24 15:07) Swelling Medication List - Last Reconciled 11/04/24 by Aleta Ramirez MD aspirin (Adult Aspirin Regimen) 81 mg PO DAILY atorvastatin 80 mg PO DAILY famotidine (Zantac-360 (famotidine)) 20 mg PO DAILY vibegron (Gemtesa) 75 mg PO DAILY HPI Comments Details: 11/04/24 History of Present Illness - The patient is a 64-year-old female presenting with urinary incontinence and bladder prolapse. - She reports urinary incontinence with leakage during activities such as coughing, sneezing, and lifting. - Experiences a strong urge to urinate, requiring preemptive bathroom visits. - Manages her condition with a pessary, currently using a size 6, and cleans it every few days. - Has a history of bladder prolapse, which protrudes without the pessary. - Avoided bladder repair surgery due to mesh-related concerns. - No history of hysterectomy; follows up with Pap smears as advised. Plan - Schedule a cystoscopy to evaluate the bladder and perform an examination. - Consider a minimally invasive procedure with Bulkamid injection if appropriate. - Discuss potential referral to urogynecology for surgical intervention, pt concerned about mesh - Gemtesa 75 mg daily, with instructions to contact the nurse if insurance issues arise. - Plan for a follow-up to assess the effectiveness of the medication and further evaluate treatment options. - Arrange for a kidney ultrasound as part of the evaluation. [facility] Social History Alcohol intake: current Patient Tobacco Use Status: Never used Tobacco Review of Systems Const All systems reviewed & are unremarkable except as noted in HPI and below Reports no additional complaints Eyes Reports no additional complaints ENT Reports no additional complaints Card Reports no additional complaints Resp Reports no additional complaints GI Reports no additional complaints Reports as per HPI Musc Reports no additional complaints Skin/Breast Reports system reviewed and no additional complaints, except as documented Neuro Reports no additional complaints Psych Reports no additional complaints Endo Reports no additional complaints George/Lymph Reports no additional complaints Aller/Immun Reports no additional complaints Physical Exam Const General: cooperative, healthy appearing and no acute distress Nutritional Appearance: overweight Orientation/consciousness: patient oriented x3 HEENT Head: Yes normal to inspection, Yes normocephalic and Yes atraumatic Eyes Conjunctivae: conjunctivae normal Neck Neck: Yes normal visual inspection and Yes trachea midline Chest Chest palpation & inspection: normal inspection of the chest Resp Effort & Inspection: normal respiratory effort GI Inspection: Yes normal to inspection Neuro General: patient oriented x3 Psych Appearance: grossly normal Assessment & Plan Assessment & Plan (1) Urinary incontinence: Code(s): R32 - Unspecified urinary incontinence Category: Medical (2) Vaginal prolapse: Code(s): N81.10 - Cystocele, unspecified Category: Medical Plan Plan - Schedule a cystoscopy to evaluate the bladder and perform an examination. - Consider a minimally invasive procedure with Bulkamid injection if appropriate. - Discuss potential referral to urogynecology for surgical intervention, pt concerned about mesh - Gemtesa 75 mg daily, with instructions to contact the nurse if insurance issues arise. - Plan for a follow-up to assess the effectiveness of the medication and further evaluate treatment options. - Arrange for a kidney ultrasound as part of the evaluation. Orders: Orders US renal BI Today R32 - Unspecified urinary incontinence Medications: New vibegron (Gemtesa) 75 mg PO DAILY 30 tabs 5RF Patient Instructions: The patient had an opportunity to ask questions regarding treatment plan. The patient expressed understanding and agreement with the above treatment plan. The patient is aware they should contact our office by phone for worsening of their current condition or the appearance of new symptoms. Compliance is encouraged with any medications and followup testing that is ordered. It is a privilege to be allowed the opportunity to participate in the urologic care of your patient. If you have any questions or concerns regarding treatment for the above conditions please do not hesitate to contact me. The office telephone contact is [phone]. This note is constructed in part using voice recognition software. While every effort has been made to ensure accuracy conservation of resources commissioner errors may have been included. Yours sincerely, Aleta Ramirez MD Scribe Plan - Not visible on output: Patient was informed and verbally consented to the use of an ambient scribe for clinic note documentation during this visit. Coding Level of Care Code New Pt Level 4 (14001) Diagnoses Urinary incontinence R32 Vaginal prolapse N81.10
== END 2024-11-04 16:35 | disposition home or self-care (01) ==
LOC: HO.HUSH 14:48
PROVIDERS: PCP Nurse Practitioner Family; Visit Provider Urology
DX: R32 Unspecified urinary incontinence (principal); N81.10 Cystocele, unspecified
CPT/HCPCS: 99204

== ENCOUNTER → 2024-11-04 14:48 | Outpatient (BNVA) | payer OTHER, SELFPAY | PROVIDERS: PCP Nurse Practitioner Family; Visit Provider Urology | DX: N81.10 Cystocele, unspecified (principal) | CPT/HCPCS: 81003 ==

== ENCOUNTER 2024-12-24 12:12 | Outpatient (REF) | payer OTHER, SELFPAY ==
--- NOTE | ~2024-12-24 | US_ITS ---
CLINICAL HISTORY: R32 - Unspecified urinary incontinence US renal with Color Doppler Comparison: None Findings: Right kidney normal size and echotexture, 9.9 cm length. No hydronephrosis calculus or mass. Normal color flow. Left kidney normal size and echotexture, 11.5 cm length. No hydronephrosis calculus or mass. Normal color flow. Impression: 1. Normal renal ultrasound This document has been electronically signed by: Roney Palm MD on 12/25/2024 11:30:25
--- OUTSIDE RECORDS SUMMARY | 2024-12-24 15:07 | XMS_ITS | Clinical Summary ---
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 11/23/2020 Overview (01/07/2021): Underwent thrombectomy at [facility] Dupuytren's contracture 10/29/2020 Trigger middle [...] Next Due Covid-19 Monovalent (Moderna Spikevax) 12yrs+ ([id number]) 08/28/2020,07/29/2020 DT Pediatric 10/27/1997 Influenza Quadrivalent, Pres [...] Additional history exists Covid-19 Vaccine (3 - 2024-2 6 season) 2024 08/28/2020, 07/29/2020 Influenza (Flu) vaccine (1 o [...] 1:20 PM EST HIV SCREEN, 4TH GENERATION (SYLVIE,ZARA,NL) PERFORMABLE Routine 09/04/2013 10:45 AM EDT EXTERNAL COLONOSCOPY RESULT Routine 02/04/2013 11:30 AM EST from Last 3 Months or Most Recently Relevant to Health Maintenance Results * Lipid Panel (Reflex Direct LDL) (01/08/2021 11:58 AM EDT) Cholesterol, Total 140 mg/dL C [facility] Comment: Lower Risk: <200 mg/dL Average Risk: 200-239 mg/dL Higher Risk: >mv=239 mg/dL Triglyceride 42 mg/dL [facility] Comment: Average Risk/Lower Risk: <150 mg/dL Borderline High Risk: 150-199 mg/dL High Risk: 200-499 mg/dL Very High Risk: >lh=142 mg/dL HDL Cholesterol 75 mg/dL [facility] Comment: Males: Higher Risk: <40 mg/dL Females: Higher Risk: <50 mg/dL LDL Cholesterol 57 mg/dL [facility] Comment: Lowest Risk: <100 mg/dL Lower Risk: 100-129 mg/dL Borderline High Risk: 130-159 mg/dL High Risk: 160-189 mg/dL Very High Risk: >fp=019 mg/dL Cholesterol/HDL Ratio 1.9 ratio [facility] Lipid Interpretation See Note [facility] Comment: Lipid management should be guided by a patient s ASCVD risk, goals and preferences. ACC/AHA Guidelines recommend high intensity statin if clinical ASCVD or LDL greater than or equal to 190 mg/dL. http://[email or web address] A Drink.com/LDT-ZGX-Skhnlsawm Adults aged 40-75 with LDL 70-189 mg/dL should have their 10 year ASCVD risk estimated with the ACC/AHA ASCVD risk commercial estimator http://tools.acc.org/WJRQJ-Sbnk-Dldjcxdhk/ Statin should be discussed if risk greater [...] Morejon MD CHEMISTRY ORDERABLES Final Res ult [facility] [address] [place] [address] * (ABNORMAL) Comprehensive metabolic panel (non-fasting) (05/04/2020 3:35 PM EST) Glucose 100 65 - 199 mg/dL [facility] Comment:Diabetes: >=200 mg/d L plus symptoms Blood Urea Nitrogen 7(L) 8 - 18 mg/dL [facility] Creatinine 0.63(L) 0.70 - 1.20 mg/dL [facility] Sodium 137 135 - 145 mmol/L [facility] Potassium 4.2 3.5 - 5.0 mmol/L [facility] Comment: Please note: Patients with WBC >100,000 may have falsely elevated Potassium levels. For accurate Potassium quantification in these patients send serum separator tube (gold top) for subsequent determinations. Contact the Clinical Chemistry Laboratory if there are any questions. Chloride 99 98 - 107 mmol/L [facility] Carbon Dioxide 27 22 - 31 mmol/L [facility] Anion Gap 11 5 - 15 mmol/L [facility] Calcium 9.5 8.5 - 10.5 mg/dL [facility] Protein, Total 6.8 6.1 - 8.0 gm/dL [facility] Albumin 4.0 3.2 - 5.2 gm/dL [facility] Aspartate Aminotransferase 14 0 - 30 unit/L [facility] Alanine Aminotransferase 10 0 - 30 unit/L [facility] Alkaline Phosphatase 60 35 - 105 unit/L [facility] Bilirubin, Total 0.3 0.2 - 1.3 mg/dL [facility] Est Glomerular Filtration Rate 98 >=60 mL/min/1. 73 m [facility] Comment: This patient s estimated glomerular [...] Comment Spec In Lab us Sergio Aviles HEADSTART TEACHER CHEMISTRY ORDERABLES Final Result [facility] [address] [id number] * Mammo Screening Cad and Sam Bilateral [...] by: BEAR ROBERSON MD, [facility] ([phone]), at 12/23/2019 9:14 AM Narrative 12/23/2019 9:14 AM EDT EXAMINATION: MAMMO SCREENING CAD AND SAM BILATERAL CLINICAL HISTORY: routine screening TECHNIQUE: CC and MLO projections as well as tomography were reviewed. The films were also reviewed with the [employer] Computer Aided Detection System. COMPARISON: Previous studies FINDINGS: There are scattered areas of fibroglandular density. No dominant mass or suspicious microcalcifications. Breasts are symmetric. There is no architectural distortion. Breast density category B. us Minerva Morejon MD IMG MAMMO ORDERABLES Final Res ult * Hepatitis C Antibody (03/22/2019 11:21 AM EST) Hepatitis C Antibody Negative Negative [facility] Blood specimen (specimen) 03/22/2019 11:21 AM EST 03/22/2019 11:22 AM EST Narrative Resulting Agency Comment Spec In Lab us Minerva Morejon MD CHEMISTRY ORDERABLES Final Res ult [facility] [address] [place] [address] * (ABNORMAL) External Pap Smear (06/08/2016 1:20 PM EST) HPV Interpretation NOT DETECTED(Exte rnal Lab) NOT DETECTED [facility] Comment: Sourced from [facility] Conversion External PAP Smear 06/08/2016 1:20:00 PM; See Network Chemistry system for full report(Bowl Attendant al Lab) [facility] Comment: TESTS: SP and HPV [...] Please note: Source: OTHER Sourced from [facility] Conversion 06/08/2016 1:20 PM EST us [facility] Provider EXTERNAL LAB ORDERABLES Fi nal Result Performing Organization Address [facility] de Phone Number [facility] * (ABNORMAL) HIV Antibody Rapid Test (09/04/2013 10:45 AM EDT) HIV Ab/Ag Rapid NEGATIVE( External Lab) NEGATIVE [facility] Comment: Sourced from [facility] Conversion 09/04/2013 10:4 5 AM EDT us His [facility] Provider CHEMISTRY ORDERABLES Final Result Performing Organization Address [facility] de Phone Number [facility] * (ABNORMAL) External Colonoscopy (02/04/2013 11:30 AM EST) External Colonoscopy 02/04/2013 11:30:00 AM - See Network Chemistry system for full report(Externa l Lab) [facility] Comment:Sourced from [facility] Conversion 02/04/2013 11:3 0 AM EST us [facility] Provider EXTERNAL GI PROCEDURE RESU LT Final Result Performing Organization Address [facility] de Phone Number [facility] RESULT CONVERSION from Last 3 Months or Most Recently Relevant to Health Maintenance Insurance [id number] (Home) [address] [place] [address] [employer]IC Advance Directives Documents on File Type Date Recorded 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
--- OUTSIDE RECORDS SUMMARY | 2024-12-24 15:07 | XMS_ITS | Encounter Summary ---
Author Organization [facility] Address [address] [place] [address] Care Team Providers Care Component Prep Operator Name Role Phone Minerva Morejon Primary Care Provider Encounter Details Date Type Department Care Team (Late st Contact Info) Description 06/02/2022 [employer] Message [facility] Revenue Cycle Management [address] [place] [address] Mychart, Generic Provider [facility] [place] [phone] Payment Plan Social History Tobacco Use Types [...] on filedocumented in this encounter Care Teams Component Prep Operator Relationship Specialty Start Date End Date Minerva Morejon PCP - General Family Medicine 03/02/21 documented as of this encounter
--- OUTSIDE RECORDS SUMMARY | 2024-12-24 15:07 | XMS_ITS | Encounter Summary ---
Author Organization [facility] Address [address] [facility] [address] [place] [phone] Phone Care Team Providers Care Color Strainer Name Role Phone Karma Hudson [facility] Primary Care Provider [phone] Encounter Details Date Type Department Care Team (Late st Contact Info) Description 10/25/2021 Procedure Pass [address] [place] [address] Social History Tobacco Use Types Packs/Day Years [...] st Contact Info) Description 08/06/2024 Procedure Pass [address] [place] [address] 02/21/2025 1:15 PM EST Appointment [address] [place] [address] Karma Hudson FNP [address] [facility], [address] [place] [address] maria del [email or web address] documented as of this encounter Visit Diagnoses Not on filedocumented in this encounter Additional Health Concerns Infection Onset Date Last Indicated Resolved Time CoV-Risk 05/24/2023 05/24/2023 06/04/2023 1:22 AM EST CoV-Risk Comment:Per Ambulatory Triage Form 05/10/2024 05/10/202405/21 1:21 AM EST Assessment Noted Time PHQ-2 Depression Total Score: 2 10/26/19 22 2:25 PM EDT documented as of this encounter Care Teams Color Strainer Relationship Specialty Start Date End Date Karma Hudson FNP [address], [address] [place] [address] maria del PCP - General Family Medicine 10/08/21 documented as of this encounter Additional Source Comments The information contained in this document represents components of the legal health record. It is not the complete legal health record.[facility]
--- OUTSIDE RECORDS SUMMARY | 2024-12-24 15:07 | XMS_ITS | Clinical Summary ---
Author Organization [facility] Address [address] [employer] [address] [facility] [address] [place] [address] Phone Care Team Providers Care Clerk Guide Name Role Phone Karma Hudson [facility] Primary Care Provider [phone] Allergies Active Allergy Reactions Criticality Noted Date Comments Animal Dander Unknown 08/16/2017 Hay Fever And Allergy Relief Feeling Irritable,Sneezing Low 04/03/1968 Hydrocodone-Acetamino phen Angioedema High 12/18/2003 No allergy to acetaminophen Propranolol Swelling High 12/18/2003 Unknown swelling location Medications b complex vitamins capsule Take 1 capsule by mouth daily. Active omega-3 fatty acids 1,000 mg Cap Take 2 g by mouth. Active multivitamin per tablet Take 1 tablet by mouth daily. Active magnesium 250 mg Tab Take by mouth every other day. Active biotin 300 mcg Tab Take by mouth. Active cetirizine (ZYRTEC) 10 MG tablet Take 10 mg by mouth. Active aspirin 81 MG EC tablet Take 81 mg by mouth daily. 11/25/2020 Active ascorbic acid, vitamin C, (VITAMIN C) 100 MG tablet Take 100 mg by mouth. Active albuterol 90 mcg/actuation inhaler Inhale 2 puffs into the lungs every 6 (six) hours as needed for wheezing. 8 g 1 05/10/2024 Active atorvastatin (LIPITOR) 80 MG tabletIndicatio ns:History of CVA (cerebrovascula r accident) take 1 tablet by mouth once daily 90 tablet 3 06/12/2024 Active venlafaxine (EFFEXOR-XR) 75 MG 24 hr capsuleIndicati ons:Depressive disorder Take 1 capsule (75 mg total) by mouth daily. 90 capsule 3 09/03/2024 Active Hospital, Clinic, or Other Facility Administered Medication Ordered Dose Route Frequency Start Date End Date Status triamcinolone acetonide (KENALOG-40) 40 mg/mL injection 20 mgIndications:Primary osteoarthritis of first carpometacarpal joint of right hand 20 mg IM Once 12/11/2024 03/11/2025 Activ e BUPivacaine (PF) (MARCAINE) 0.25% injection 0.5 mLIndications:Primary osteoarthritis of first carpometacarpal joint of right hand 0.5 mL See Adm Inst Once 12/11/2024 03/11/2025 Act dana lidocaine (XYLOCAINE) 1% injection 0.5 mLIndications:Primary osteoarthritis of first carpometacarpal joint of right hand 0.5 mL Infil Once 12/11/2024 03/11/2025 Activ e Active Problems Problem Noted Date Diagnosed Date Itchy eyes 11/08/2024 Assessment & Plan (11/08/2024 3:31 PM EDT): Margie presents for itchy skin of the periorbital region-eyelids top and bottom. I suspect that this has something to do with the air quality. I advised her to continue with her Zyrtec but I also advised her to garbage pick up worker Flonase and use this daily and to garbage pick up worker some refresh eyedrops and to use this daily. I informed her to call if this does not improve at which point I would possibly consider trialing a small dose of triamcinolone ointment to the skin to see if this will help reduce the itchiness. I informed her to call if there are any other issues or concerns. She understands and agrees. Change in vision 11/08/2024 Assessment & Plan (11/08/2024 3:30 PM EDT): Margie notes that she has had a change in vision over the past couple weeks. She notes that she sees bright flashes of light at times. The vision does not go black. This has not happened before. I advised her to see her eye doctor immediately for an evaluation. Pupils are equal and reactive to light on exam today. Extraocular muscles are intact. I informed her to call if there are any other issues or concerns. She understands and agrees. Thyroid nodule 09/04/2024 Dysuria 01/17/2024 Assessment & Plan (01/17/2024 4:16 [...] if there are any other issues or [id number] with her PCP next week- she will [...] & Plan (06/07/2022 1:01 PM EST): Reports [facility] will not take her case because her BMI is too low - she has been advised that she would benefit from conversion of lap band over to gastric bypass Assessment & Plan (10/26/2021 6:59 PM EDT): We'll check if she can potentially have conversion to gastric sleeve through [facility] bariatric medicine. History of stroke 11/23/2020 [...] Plan (10/26/2021 6:59 PM EDT): Referral to AUTO SERVICE REPRESENTATIVE to discuss pessary. Urinary incontinence 10/20/2016 Assessment & Plan (08/06/2024 12:42 PM EDT): Referred to Dr. Ramirez at [facility] upon request. Orders: Ambulatory referral to External Urology Depressive disorder 08/17/2016 Assessment & Plan (08/06/2024 12:42 PM EDT): We are restarting her on effexor as she reports good response to this in past, reviewed side effect profile, we'll follow up in 4 weeks to reassess. Orders: venlafaxine (EFFEXOR-XR) 75 MG 24 hr capsule; Take 1 capsule (75 mg total) by mouth daily. Assessment & Plan (06/07/2022 1:02 PM EST): [...] Encounters Date Type Department Care Team Description 12/11/2024 8:30 AM EDT Office Visit [facility] [address] [place] [id number] Carmen Godfrey MD Primary osteoarthritis of first carpometacarpal joint of right hand (Primary Dx) 12/11/2024 Telephone [facility] [address] [place] [address] Carmen Godfrey MD 11/14/2024 3:08 PM EDT - 11/14/2024 11:59 PM EDT Hospital Encounter [facility], X-Ray - [address] [place] [address] Karma Hudson FNP Discharge Disposition: Home or Self Care 11/14/2024 2:15 PM EDT Office Visit [address] [address] Karma Hudson FNP Right wrist pain (Primary Dx) 11/13/[address] [address] Karma Hudson FNP Triage (Right hand and wrist Pain ) 11/08/2024 3:00 PM EDT Office Visit [address] [address] Sahd, Mumtaz F, DO Itchy eyes (Primary Dx); Change in vision 11/04/2024 Nurse Triage [facility] [address] [place] [address] Karma Hudson, MATTRESS FILLER Triage (Gregg + dizziness + ongoing/worsening ) from Last 3 Months Immunizations Immunization Administration Dates Next Due COVID-19 (Pre-01/23) Moderna Vaccine, mRNA, PF 08/28/2020,07/29/2020 DT 10/27/1997 Influenza Quadrivalent Preservative Free IM 06/2022,12/21/2021 Influenza, Unspecified Formulation 01/15/2011,,01/24/2007 PPD Test 08/04/2015 Pneumococcal conjugate PCV13 12/21/2021 Pneumococcal conjugate PCV20 08/06/2024 Td (adult) 5 Lf Tetanus Toxo id, PF, Adsorbed 12/04/2019 Tdap 12/23/2008 Tetanus toxoid, adsorbed 12/04/2019 Zoster recombinant 09/07/2024 Family History Medical History Relation Comments Heart [...] high school, GED, job training, learning the Danish language, technical skills, or developing parenting skills)? [...] your housing situation today? I have jeremi osuna 07/26/2023 How many times have you move [...] or tries to control you? No 07/26/2023 Comments No Sex and Gender Information Value Date Recorded Sex Assigned at Female 10/25/2021 6:37 PM EDT Legal Sex Female 9:15 AM EDT Gender Identity Female 10/25/2021 6:37 PM EDT Sexual Orientation Straight 10/25/2021 6: 37 PM EDT Last Filed Vital Signs Vital Sign Reading Time Taken Comments Blood Pressure 120/68 11/14/2024 1:53 PM EDT Pulse 88 11/14/2024 1:53 PM EDT Temperature 36.3 C (97.3 F) 11/14/2024 1:53 PM EDT Respiratory Rate - - Oxygen Saturation 98% 11/14/2024 1:53 PM EDT Inhaled Oxygen Concentration - - Weight 96.3 kg (212 lb 6.4 oz) 11/14/2024 1:53 P M EDT Height 157.5 cm (5' 2.01 ) 11/14/2024 1:53 PM ED T Body Mass Index 38.84 11/14/2024 1:53 PM EDT Plan of Treatment Upcoming Encounters Date Type Department Care Team (Late st Contact Info) Description 08/06/2024 Procedure Pass [address] [place] [address] 02/21/2025 1:15 PM EST Appointment [address] [place] [address] Karma Hudson, INNA [address] [place] [address], [address] [place] [address] [email or web address] Health Maintenance Due Date Last Done Comments HIV ONE-TIME SCREENING (18-65 YEARS) 1978 COLOGUARD 2005 FIT TEST 2005 FOBT 2005 SIGMOIDOSCOPY 2005 VIRTUAL COLONOSCOPY 2005 MAMMOGRAM 11/13/2023 11/12/2021, 12/02, 12/20/2019, Additional history exists INFLUENZA VACCINE (#1) 2024 , 12/21/2021, 01/15/2011, Additional history exists ZOSTER VACCINES (2 of 2) 11/02/2024 09/07/2024 DEPRESSION SCREENING 08/06/2025 08/06/2024, 07/26/19 24 SCREENING FOR DIABETES 06/22/2026 06/23/2023, 2022 PAP SMEAR 06/08/2027 06/07/2022, 06/01/2016 LIPID PANEL 06/22/2028 06/23/2023, 0310/2022, 11/23/2020 Adult Td,Tdap Booster 12/03/2029 12/04/2019 , 12/04/2019, 12/23/2008 COLONOSCOPY 10/10/2032 10/10/2022, 02/01/2013 COLORECTAL CANCER SCREENING 10/10/2032 RSV VACCINE (1 - 1-dose 75+ series) 06/17/2035 HEPATITIS C SCREENING Completed 03/22/2019 COVID-19 VACCINE Completed 03/16/2024, 09/2022, 08/28/2020, Additional history exists PNEUMOCOCCAL VACCINES (50+ years) Completed 08/06/2024, 12/21/2021 SMOKING STATUS SCREENING (Once After 26 Yrs) Completed 11/14/2024 HEPATITIS A VACCINES Aged Out No long er eligible based on patient's age to complete this topic HIB VACCINES Aged Out No longer eligi ble based on patient's age to complete this topic MENINGOCOCCAL VACCINES (ACWY) Aged Out No longer eligible based on patient's age to complete this topic MENINGOCOCCAL VACCINES (B) Aged Out N o longer eligible based on patient's age to complete this topic Medical Devices Not on file Procedures Procedure Name Priority Date/Time Associated Diagnosis Comments XR WRIST 3 OR MORE VIEWS (RIGHT) Routine 11/14/2024 3:21 PM EDT Right wrist pain LIPID PANEL Routine 06/23/2023 7:11 AM EDT History of CVA (cerebrovascular accident) HM COLONOSCOPY FOR RESULT ENTRY ONLY Routine 10/10/2022 PAP TEST Routine 06/07/2022 12:00 AM EST BI MAMMOGRAM SCREENING WITH TOMOSYNTHESIS WITH CAD (BILATERAL) Routine 11/12/2021 4:06 PM EDT Encounter for screening mammogram for malignant neoplasm of breast from Last 3 Months or Most Recently Relevant to Health Maintenance Results * XR WRIST 3 OR MORE VIEWS (RIGHT) (11/14/2024 3:21 PM EDT) Anatomical Region Laterality Modality Wrist Right Computed Radiogr aphy 11/15/2024 4:48 PM EDT Impressions 11/15/2024 4:50 PM EDT Degenerative changes, most advanced at the thumb carpometacarpal and distal radioulnar joints. Narrative 11/15/2024 4:50 PM EDT XR WRIST 3 OR MORE VIEWS (RIGHT) Referring clinician's provided indication for this examination in Epic: Pain COMPARISON: None FINDINGS: There is soft tissue swelling around the carpus. Degenerative changes are most advanced at the thumb carpometacarpal joint and to a lesser degree at the distal radioulnar joint. Milder degenerative changes are seen throughout the carpus including the lunocapitate articulation. The scapholunate interval is top normal in size. Subcortical cystic changes in the distal ulna. Procedure Note Marvel Garrido MD - 11/15/2024 XR WRIST 3 OR MORE VIEWS (RIGHT) Referring clinician's provided indication for this examination in Epic:Pain COMPARISON: None FINDINGS: There is soft tissue swelling around the carpus. Degenerative changes aremost advanced at the thumb carpometacarpal joint and to a lesser degree atthe distal radioulnar joint. Milder degenerative changes are seenthroughout the carpus including the lunocapitate articulation. Thescapholunate interval is top normal in size. Subcortical cystic changes inthe distal ulna. IMPRESSION: Degenerative changes, most advanced at the thumb carpometacarpal anddistal radioulnar joints. Karma Hudson MATTRESS FILLER IMG XR UPPER EXTREMITY Final Result * (ABNORMAL) Lipid panel (06/23/2023 7:11 AM EDT) HDL 79 mg/dL [facility] Comment: Interpretation <40 mg/dL: Low HDL cholesterol (major risk factor for CHD) Greater than or equal to 60 mg/dL: High HDL cholesterol ( negative risk factor for CHD) HDL - cholesterol is affected by a number of factors, e.g. smoking, excerise, hormones, sex and age. CHOLESTEROL 235 0 - 240 mg/dL [facility] TRIGLYCERIDES 68 30 - 160 mg/dL [facility] LDL 142(H) 50 - 129 mg/dL [facility] Comment: LDL levels in terms of risk for coronary heart disease: <100 mg/dL: Optimal 100-129 mg/dL: Near or above optimal 130-159 mg/dL: Borderline high 160-189 mg/dL: High >190 mg/dL: Very High CARDIAC RISK RATIO 3.0(L) 3.3 - 4.4 C [facility] Blood 06/23/2023 7:11 AM EDT 06/23/2023 7:17 AM EDT [facility] LAB BLOOD ORDERABLES Final Re sult [address] [address] * COLONOSCOPY FOR RESULT ENTRY ONLY (10/10/2022) [facility] HEALTH MAINTENANCE Edited Res ult - Final * Pap Test (06/07/2022 12:00 AM EST) 06/07/2022 06/08/2022 9:3 1 AM EST Narrative SEE NARRATIVE - 06/15/2022 11:46 AM EDT [address] [address] Lube Technician: Irene Rankin MD AUTO SERVICE REPRESENTATIVE Cytology Report FINAL DIAGNOSIS A. PAP SMEAR (SUREPATH) CE: SPECIMEN ADEQUACY: Satisfactory for evaluation; transformation zone present. INTERPRETATION: NEGATIVE FOR INTRAEPITHELIAL LESION OR MALIGNANCY. Electronically Signed Out By: SG Fugn(ASCP) The Pap test is a screening test primarily for squamous cancers and precursors and has associated false-negative and false-positive results. New technologies such as liquid-based preparations may decrease but will not eliminate all false-negative results. Regular sampling and follow-up of unexplained clinical signs and symptoms are recommended to minimize false negative results. PROCEDURES/ADDENDA HPV Testing (Requested) Ordered Date: 06/08/2022 A. PAP SMEAR (SUREPATH) CE: Human Papilloma Virus Test NEGATIVE for high-risk Human Papilloma Virus types 16, 18, 45 and the Other high risk probe set (Includes 31, 33, 35, 39, 51, 52, 56, 58, 59, 66, 68) Note: Testing performed by [employer] HR-HPV analysis. Clinical correlation is advised. This HPV test was performed at [facility], [address] [place] [address]. This test has been FDA approved for [employer] cervical cytology specimens. The accuracy and precision of this test for all other specimen sources has been verified in the Cytopathology Laboratory of the [facility] and has not been cleared or approved by the U.S. Food and Drug Administration. Clinical correlation is advised. CLINICAL HISTORY Date of Last Menstrual Period: AGED 52 Menstrual History: Post Menopausal Other Clinical Conditions: Screening Pap SPECIMEN SOURCE A: PAP SMEAR (SUREPATH) CE Patient Name: MARGIE CAREY : 1960 (Age: 61) Sex: F Institution: [facility] Location: [facility] Date of Collection: 06/07/2022 Date of Reported: 06/15/2022 11:46 Results to: Karma Hudson MSN Karma Hudson MATTRESS FILLER CYTOLOGY ORDERABLES Final Res ult SEE NARRATIVE * BI MAMMOGRAM SCREENING WITH [...] finding. DENSITY: There are scattered fibroglandular densities. Narrative 11/19/2021 4:56 PM EDT STUDY: Bilateral screening mammography with tomosynthesis and CAD TECHNIQUE: Bilateral full-field digital screening mammography is obtained and read in conjunction with computer-aided detection. Tomosynthesis as well as 2-D C view imaging were obtained. COMPARISON: December 20, 2019 and October 18, 2017 BREAST COMPOSITION: There are scattered areas of fibroglandular density RIGHT BREAST: No significant masses, suspicious calcifications or other abnormalities are seen. LEFT BREAST: Tissue marker from previous needle core biopsy. No [...] finding. DENSITY: There are scattered fibroglandular densities. [facility] Sole Hudson [facility] IM MG EXAMS Final Result from Last 3 Months or Most Recently Relevant to Health Maintenance Insurance [facility] Address: [address] [address] [facility] Address: [address] [address] [facility] [place] [address] [facility] Care Teams Clerk Guide Relationship Specialty Start Date End Date Karma Hudson September, INNA [address] [place] [address], [address] [place] [address] [email or web address] PCP - General Family Medicine 10/08/21 Additional Source Comments The information contained in this document represents components of the legal health record. It is not the complete legal health record.[facility]
--- OUTSIDE RECORDS SUMMARY | 2024-12-24 15:07 | XMS_ITS | Clinical Summary ---
Author Organization [facility] Address [address] [place] [address] Care Team Providers Care Lining Finisher Name Role Phone Minerva Morejon Primary Care Provider [phone] Allergies Active Allergy Reactions Criticality Noted Date [...] 86 06/07/2021 2:11 PM EST Temperature 36.9 C (98.5 F) 06/07/2021 2:11 PM EST Respiratory Rate 16 06/07/2021 2:11 PM EST Oxygen Saturation 99% 11/24/2020 4:30 PM EDT Inhaled Oxygen Concentration - - Weight 87.5 kg (193 lb) 03/02/2021 3:15 PM EST Height 154.9 cm (5' 1 ) 06/07/2021 2:11 PM EST Body Mass Index 36.47 03/02/2021 3:15 PM EST Plan of Treatment Health Maintenance Due Date Last Done Comments Cologuard 1960 Colon Cancer Screening 1960 Colonoscopy 1960 FOBT / Fit Test 1960 HIV Screening [address] Lung Cancer Screening (Baseline) 2010 Pneumococcal Vaccine: 50+ Years (1 of 1 - PCV) 2010 Zoster Vaccines (1 of 2) 2010 DTaP,Tdap,and Td Vaccines (3 - Td or Tdap) 12/23/2018 12/23/2008, 10/27/1997 Alcohol/Substance Use Screening 04/03/2024 COVID-19 Vaccine (3 - 2024-2 6 season) 2024 08/28/2020, 07/29/2020 Influenza Vaccine (#1) 2024 1, 01/06/2010, 01/24/2007 RSV Vaccine (60+ years old a nd patients) (1 - 1-dose 75+ series) 06/17/2035 Hepatitis B Vaccines Aged Out No long er eligible based on patient's age to complete this topic Medical Devices Implanted Type Area Manager Trust Device Identifier Shelf Expiration Date Model / Serial / Lot Device Closure Vascular Plug 8fr Angio-Seal Vip - [id number] Implanted:Qty: 1 on 11/23/2020 at [facility] Implant [employer] [id number] / / Insurance GENERIC M[employer]IPLAN Advance Directives Documents on File Type Date Recorded Patient Bartenders Expl [facility] Care Proxy 11/25/2020 2:42 PM 11-24 * Presumed Full Code (Latest Code Status on File) Date Activated Date Inactivated Comments 11/24/2020 10:27 AM 11/24/2020 8:41 PM Care Teams Lining Finisher Relationship Specialty Start Date End Date Minerva Morejon PCP - General Family Medicine 03/02/21
--- OUTSIDE RECORDS SUMMARY | 2024-12-24 15:07 | XMS_ITS | Encounter Summary ---
Author Organization [facility] Address [address] [place] [address] Care Team Providers Care Gastroenterology Manager Name Role Phone Minerva Morejon Primary Care Provider [phone] Reason for Visit * Reason Onset Date Comments COVERAGE 06/07/2021 Encounter Details Date Type Department Care Team (Late st Contact Info) Description 06/07/2021 Telephone [facility] [address] [place] [address] [id number] Telephone Intake, Staff COVERAGE Social History Tobacco [...] for appt on 06/07/2021 called [employer] Ins [phone] spoke with July call ref # [id number] Plan effect 09/15/2020 - [facility] network Per July patient is approved for 1 visit per speciality with a $50.00 Per Managed Care site, Multi Plan / PHCS no referral required States w/logo no ref required Pt is aware Please route your response back to the [facility] Neurology Admin Staff Pool. Thank you documented in this encounter Plan of Treatment Not on file documented as of this encounter Visit Diagnoses Not on filedocumented in this encounter Care Teams Gastroenterology Manager Relationship Specialty Start Date End Date Minerva Morejon PCP - General Family Medicine 03/02/21 documented as of this encounter
--- OUTSIDE RECORDS SUMMARY | 2024-12-24 15:07 | XMS_ITS | Encounter Summary ---
Author Organization [facility] Address [address] [place] [address] Care Team Providers Care Blender Conveyor Operator Name Role Phone Minerva Morejon Primary Care Provider [phone] Reason for Visit * Reason Onset Date Comments confirm appt 02/15/2021 Encounter Details Date Type Department Care Team (Late st Contact Info) Description 02/15/2021 Telephone [facility] Central Scheduling Department [address] [place] [address] Telephone Intake, Staff confirm appt Social History [...] on filedocumented in this encounter Care Teams Blender Conveyor Operator Relationship Specialty Start Date End Date Minerva Morejon PCP - General Family Medicine 03/02/21 documented as of this encounter
--- OUTSIDE RECORDS SUMMARY | 2024-12-24 15:07 | XMS_ITS | Encounter Summary ---
Author Organization [facility] Address [address] [place] [address] Phone Care Team Providers Care Explosive Operator Supervisor Name Role Phone Karma Hudson [facility] Primary Care Provider [phone] Encounter Details Date Type Department Care Team (Late st Contact Info) Description 09/03/2024 Procedure Pass [facility] [address] [place] [address] Social History Tobacco Use Types Packs/Day Years [...] high school, GED, job training, learning the Yemeni language, technical skills, or developing parenting skills)? [...] st Contact Info) Description 08/06/2024 Procedure Pass [place] [facility] - [address] [place], [place] [address] 02/21/2025 1:15 PM EST Appointment [address] [place] [address] Karma Hudson FNP [address] [facility], [address] [place] [address] [email or web address] documented as of this encounter Visit Diagnoses Not on filedocumented in this encounter Additional Health Concerns Assessment Noted Time PHQ-9 Depression Total Score: 9 07/26/19 24 1:30 PM EDT PHQ-2 Depression Total Score: 4 08/07/19 25 10:49 AM EDT documented as of this encounter Care Teams Explosive Operator Supervisor Relationship Specialty Start Date End Date Karma Hudson FNP [address] [facility], [address] [place] [address] [email or web address] PCP - General Family Medicine 10/08/21 documented as of this encounter Additional Source Comments The information contained in this document represents components of the legal health record. It is not the complete legal health record.[facility]
--- OUTSIDE RECORDS SUMMARY | 2024-12-24 15:07 | XMS_ITS | Encounter Summary ---
Author Organization [facility] Address [address] [place] [address] Care Team Providers Care Professor Of Environmental Studies Name Role Phone Minerva Morejon Primary Care Provider [phone] Encounter Details Date Type Department Care Team (Late st Contact Info) Description 11/23/2020 Telephone [facility] Interventional Radiology [address] [place] [phone] Mara Guillory RN Social History Tobacco [...] on filedocumented in this encounter Care Teams Professor Of Environmental Studies Relationship Specialty Start Date End Date Minerva Morejon PCP - General Family Medicine 03/02/21 documented as of this encounter
== END 2024-12-24 12:13 | disposition home or self-care (01) ==
LOC: HO.US 12:12
PROVIDERS: PCP Nurse Practitioner Family; Visit Provider Urology
DX: R32 Unspecified urinary incontinence (principal)
CPT/HCPCS: 76775

== ENCOUNTER → 2024-12-24 12:14 | Outpatient (BNV) | payer OTHER, SELFPAY | PROVIDERS: PCP Nurse Practitioner Family; Visit Provider Radiology Diagnostic Radiology | DX: R32 Unspecified urinary incontinence (principal) | CPT/HCPCS: 76775 ==

== ENCOUNTER 2025-01-09 13:21 | Outpatient (AMB) | payer OTHER, SELFPAY ==
--- NOTE | 2025-01-09 13:52 | A.OFFVIS_ITS ---
Intake Visit Reasons: cystoscopy US Intake Note: Patient presents today for a cystoscopy/US * 12/25 Renal US Urology Medication:none Blood Thinner:Aspirin Antibiotic Allergies:None Lot #:[id number] Exp:09/10/27 Allergies propranolol Allergy (Verified 01/09/25 13:52) Swelling Medication List - Last Reconciled 01/09/25 by Aleta Ramirez MD aspirin (Adult Aspirin Regimen) 81 mg PO DAILY atorvastatin 80 mg PO DAILY famotidine (Zantac-360 (famotidine)) 20 mg PO DAILY HPI Comments Details: 01/09/25--Margie is here for further evaluation of pelvic floor labs and lower urinary tract symptoms of urinary incontinence office cystoscopy plan today. The patient has a size 6 pessary placed by another provider. She was initially evaluated and prescribed Gemtesa for her urinary urge symptoms. Patient states her son recently but just caused significant emotional distress. History of Present Illness The patient is a 64-year-old female presenting with pelvic floor prolapse and urinary incontinence. The pessary, inserted by a gold cutter, frequently dislodges, particularly during urgent urination. A bladder lift procedure was considered in the past but not performed. Urinary incontinence is triggered by coughing, sneezing, lifting, and standing, suggesting stress incontinence. Urge incontinence is also present, with leakage occurring upon the urge to urinate. The patient was prescribed Gemtesa, but insurance issues prevented acquisition. Results Renal ultrasound-12/24/2024--kidneys within normal limits Office cystoscopy-mild- Moderate trabeculations. After filling the bladder with 200 mL and with the pessary in place the patient was noted to leak with Valsalva maneuver. Removal of the pessary and pelvic exam grade 2 3 cystocele. Cervix is not prolapsed. Plan Pelvic Floor Prolapse/stress urinary incontinence - Anterior vaginal repair with transvaginal mesh sling is planned due to intrinsic sphincter deficiency. -discussed that if persistent bladder spasms post procedure may still require anticholinergics. -also counseled on body habitus, overweight can also increase risk of recurrent prolapse. 11/04/24 - The patient is a 64-year-old female presenting with urinary incontinence and bladder prolapse. - She reports urinary incontinence with leakage during activities such as coughing, sneezing, and lifting. - Experiences a strong urge to urinate, requiring preemptive bathroom visits. - Manages her condition with a pessary, currently using a size 6, and cleans it every few days. - Has a history of bladder prolapse, which protrudes without the pessary. - Avoided bladder repair surgery due to mesh-related concerns. - No history of hysterectomy; follows up with Pap smears as advised. Plan - Schedule a cystoscopy to evaluate the bladder and perform an examination. - Consider a minimally invasive procedure with Bulkamid injection if appropriate. - Discuss potential referral to urogynecology for surgical intervention, pt concerned about mesh - Gemtesa 75 mg daily, with instructions to contact the nurse if insurance issues arise. - Plan for a follow-up to assess the effectiveness of the medication and further evaluate treatment options. - Arrange for a kidney ultrasound as part of the evaluation. [facility] Social History Alcohol intake: current Patient Tobacco Use Status: Never used Tobacco Office Procedures Cystoscopy Consent Discussed risk and benefit or proposed procedure with the patient. Information consent for procedure given to the patient. Discussed technical aspects, risks, benefits and alternatives in full. Addressed all of the patient's questions and concerns regarding the procedure. The patient demonstrated knowledge and understanding. They wish to proceed with this procedure. Preparation The patient was prepped in the usual manner. A bituminous distributor operator was present and in the room. Genitalia was prepped with betadine solution in a sterile manner. Lidocaine Jelly 2% was placed into the urethra and 16Fr flexible Olympus cystoscope was inserted into the meatus after adequate lubrication. Procedure Time out per protocol performed. Speculum used as indicated for adequate visualization of urethra, the flexible cystoscope is passed transurethrally: The bladder was inspected in its entirety with utilization retroflexion displaying: Tumor(s): no suspicious bladder lesions visualized Trabeculation: Mild to Moderate Mucosal Erthema: Orifices: normal shape and position Urethra: normal Cystoscopy findings: bladder wall thickening, no suspicious bladder lesions visualized [id number] DISPOSABLE SCOPE URO-G FLEXIBLE SCOPE Procedure code (CPT) selection complete Office Meds lidocaine HCl 2 % mucosal jelly in applicator Performing Provider: Aleta Ramirez MD [facility] Administered by: Aury Park RN on 01/09/25 14:07 Dose Route Admin Location Dispensed Lot Number Expiration Date NDC Pipe Bowl Paint Trimmer 10 mL intra-urethral 20 mL ciprofloxacin HCl 500 mg tablet Performing Provider: Aleta Ramirez MD Performing Location[facility] Administered by: Aury Park RN on 01/09/25 14:07 Dose Route Admin Location Dispensed Lot Number Expiration Date NDC Pipe Bowl Paint Trimmer 500 mg PO 1 tab phenazopyridine 200 mg tablet Performing Provider: Aleta Ramirez MD Performing Location: [facility] Urology [facility] Administered by: Aury Park RN on 01/09/25 14:07 Dose Route Admin Location Dispensed Lot Number Expiration Date NDC Pipe Bowl Paint Trimmer 200 mg PO 1 tab Results AMB Urinalysis, Automated UA Leukoctes 0 Yolande/uL Last Edit by Doris Watson on 01/09/25 16:29 UA Nitrite Negative Last Edit by Doirs Watson on 01/09/25 16:29 UA Urobilinogen 0.2 mg/dL Last Edit by Doris Watson on 01/09/25 16:29 UA Protein 0 mg/dL Last Edit by Doris Watson on 01/09/25 16:29 UA pH 6.0 Last Edit by Doris Watson on 01/09/25 16:29 UA Blood 0 Guilherme/uL Last Edit by Doris Watson on 01/09/25 16:29 UA Specific [place] 1.010 Last Edit by Doris Watson on 01/09/25 16:29 UA Ketone Negative Last Edit by Doris Watson on 01/09/25 16:29 UA Bilirubin 0 mg/dL Last Edit by Doris Watson on 01/09/25 16:29 UA Glucose 0 mg/dL Last Edit by Doris Watson on 01/09/25 16:29 Results Reviewed Results Reviewed: Laboratory Last Values Urine pH (Auto) 6.0 01/09/25 16:09 Specific [place] (Auto) 1.010 01/09/25 16:09 Urine Protein (Auto) 0 mg/dL 01/09/25 16:09 Glucose (UA)(Auto) 0 mg/dL 01/09/25 16:09 Urine Ketones (Auto) Negative 01/09/25 16:09 Urine Blood (Auto) 0 Guilherme/uL 01/09/25 16:09 Urine Nitrite (Auto) Negative 01/09/25 16:09 Urine Bilirubin (Auto) 0 mg/dL 01/09/25 16:09 Urine Urobilinogen (Auto) 0.2 mg/dL 01/09/25 16:09 Leukocyte Esterase (Auto) 0 Yolande/uL 01/09/25 16:09 Date of Service: 12/24/24 CLINICAL HISTORY: R32 - Unspecified urinary incontinence US renal with Color Doppler Comparison: None Findings: Right kidney normal size and echotexture, 9.9 cm length. No hydronephrosis calculus or mass. Normal color flow. Left kidney normal size and echotexture, 11.5 cm length. No hydronephrosis calculus or mass. Normal color flow. Impression: 1. Normal renal ultrasound Assessment & Plan Assessment & Plan (1) Vaginal prolapse: Code(s): N81.10 - Cystocele, unspecified Category: Medical (2) MERYL (stress urinary incontinence, female): Code(s): N39.3 - Stress incontinence (female) (male) Category: Medical Plan Plan Pelvic Floor Prolapse/stress urinary incontinence - Anterior vaginal repair with transvaginal mesh sling is planned due to intrinsic sphincter deficiency. -STOP aspirin for 10 days prior -discussed that if persistent bladder spasms post procedure may still require anticholinergics. -also counseled on body habitus, overweight can also increase risk of recurrent prolapse. Orders: Orders AMB Urinalysis Automated Today R32 - Unspecified urinary incontinence AMB Cystoscopy Today R32 - Unspecified urinary incontinence Medications: Discontinued vibegron (Gemtesa) Discontinued Reason: Insurance Denied 75 mg PO DAILY 30 tabs 5RF Patient Instructions: The patient had an opportunity to ask questions regarding treatment plan. The patient expressed understanding and agreement with the above treatment plan. The patient is aware they should contact our office by phone for worsening of their current condition or the appearance of new symptoms. Compliance is encouraged with any medications and followup testing that is ordered. It is a privilege to be allowed the opportunity to participate in the urologic care of your patient. If you have any questions or concerns regarding treatment for the above conditions please do not hesitate to contact me. The office telephone contact is [phone]. This note is constructed in part using voice recognition software. While every effort has been made to ensure accuracy ski guide errors may have been included. Yours sincerely, Aleta Ramirez MD Scribe Plan - Not visible on output: Patient was informed and verbally consented to the use of an ambient scribe for clinic note documentation during this visit. Coding Level of Care Code Est Pt Level 4 (29535) Diagnoses Vaginal prolapse N81.10 MERYL (stress urinary incontinence, female) N39.3 CPT Codes Cystoscopy - CPT: 36786-[id number] ([id number])
== END 2025-01-09 14:57 | disposition home or self-care (01) ==
LOC: HO.HUSH 13:22
PROVIDERS: PCP Nurse Practitioner Family; Visit Provider Urology
DX: N81.10 Cystocele, unspecified (principal); N39.3 Stress incontinence (female) (male)
CPT/HCPCS: 52000

== ENCOUNTER → 2025-01-09 13:21 | Outpatient (BNVA) | payer OTHER, SELFPAY | PROVIDERS: PCP Nurse Practitioner Family; Visit Provider Urology | DX: N39.3 Stress incontinence (female) (male) (principal); N81.10 Cystocele, unspecified | CPT/HCPCS: 52000; 81003 ==

== ENCOUNTER 2025-03-04 11:59 | Day surgery (SDC) | payer OTHER, SELFPAY ==
--- OUTSIDE RECORDS SUMMARY | 2025-02-13 15:04 | XMS_ITS | Clinical Summary ---
Author Organization [facility] Address [address] [place] [address] Care Team Providers Care Webmaster Name Role Phone Minerva Morejon Primary Care Provider [phone] Allergies Active Allergy Reactions Criticality Noted Date [...] to embolism of left middle cerebral artery take 1 tablet by mouth every evening [...] Screening 1960 HPV and Pap Smear 1960 Pap Smear 1960 Sigmoidoscopy 1960 Mammogram [...] this topic Medical Devices Implanted Type Area Supervisor Erection Shop Device Identifier Shelf Expiration Date Model / Serial / Lot Device Closure Vascular Plug 8fr Angio-Seal Vip - [id number] Implanted:Qty: 1 on 11/23/2020 at [facility] Implant [employer] [id number] / / Insurance GENERIC MULTIPLAN Advance Directives Documents on File Type Date Recorded Patient Car Wash Attendant Automatic Expl [facility] Care Proxy 11/25/2020 2:42 PM 11-24 * Presumed Full Code (Latest Code Status on File) Date Activated Date Inactivated Comments 11/24/2020 10:27 AM 11/24/2020 8:41 PM Care Teams Webmaster Relationship Specialty Start Date End Date Minerva Morejon PCP - General Family Medicine 03/02/21
--- OUTSIDE RECORDS SUMMARY | 2025-02-13 15:04 | XMS_ITS | Clinical Summary ---
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 11/23/2020 Overview (01/07/2021): Underwent thrombectomy at [facility] Dupuytren's contracture 10/29/2020 Trigger middle finger of [...] Next Due Covid-19 Monovalent (Moderna Spikevax) 12yrs+ ([id number]) 08/28/2020,07/29/2020 DT Pediatric 10/27/1997 Influenza Quadrivalent, Pres [...] AM EDT) Cholesterol, Total 140 mg/dL [facility] Comment: Lower Risk: <200 mg/dL Average Risk: 200-239 mg/dL Higher Risk: >oh=763 mg/dL Triglyceride 42 mg/dL [facility] Comment: Average Risk/Lower Risk: <150 mg/dL Borderline High Risk: 150-199 mg/dL High Risk: 200-499 mg/dL Very High Risk: >go=287 mg/dL HDL Cholesterol 75 mg/dL [facility] Comment: Males: Higher Risk: <40 mg/dL Females: Higher Risk: <50 mg/dL LDL Cholesterol 57 mg/dL [facility] Comment: Lowest Risk: <100 mg/dL Lower Risk: 100-129 mg/dL Borderline High Risk: 130-159 mg/dL High Risk: 160-189 mg/dL Very High Risk: >iw=248 mg/dL Cholesterol/HDL Ratio 1.9 ratio [facility] Lipid Interpretation See Note [facility] Comment: Lipid management should be guided by a patient s ASCVD risk, goals and preferences. ACC/AHA Guidelines recommend high intensity statin if clinical ASCVD or LDL greater than or equal to 190 mg/dL. http://[employer].com/MCV-KUX-Nyvcmvkfg Adults aged 40-75 with LDL 70-189 mg/dL should have their 10 year ASCVD risk estimated with the ACC/AHA ASCVD risk stress analyst http://tools.acc.org/QXZOK-Rcrs-Sxpyteilo/ Statin should be discussed if risk greater [...] Morejon MD CHEMISTRY ORDERABLES Final Res ult [facility] [address] [place] [address] * (ABNORMAL) Comprehensive metabolic panel (non-fasting) (05/04/2020 3:35 PM EST) Glucose 100 65 - 199 mg/dL [facility] Comment:Diabetes: >=200 mg/d L plus symptoms Blood Urea Nitrogen 7(L) 8 - 18 mg/dL [facility] Creatinine 0.63(L) 0.70 - 1.20 mg/dL [facility] Sodium 137 135 - 145 mmol/L [facility] Potassium 4.2 3.5 - 5.0 mmol/L [facility] Comment: Please note: Patients with WBC >100,000 may have falsely elevated Potassium levels. For accurate Potassium quantification in these patients send serum separator tube (gold top) for subsequent determinations. Contact the Clinical Chemistry Laboratory if there are any questions. Chloride 99 98 - 107 mmol/L [facility] Carbon Dioxide 27 22 - 31 mmol/L [facility] Anion Gap 11 5 - 15 mmol/L [facility] Calcium 9.5 8.5 - 10.5 mg/dL [facility] Protein, Total 6.8 6.1 - 8.0 gm/dL [facility] Albumin 4.0 3.2 - 5.2 gm/dL [facility] Aspartate Aminotransferase 14 0 - 30 unit/L [facility] Alanine Aminotransferase 10 0 - 30 unit/L [facility] Alkaline Phosphatase 60 35 - 105 unit/L [facility] Bilirubin, Total 0.3 0.2 - 1.3 mg/dL [facility] Est Glomerular Filtration Rate 98 [...] Comment Spec In Lab us Sergio Aviles RIVER EXPEDITION GUIDE CHEMISTRY ORDERABLES Final Result [facility] [address] [place] [id number] * Mammo Screening Cad and Sam Bilateral [...] by: BEAR ROBERSON MD, [facility] ([phone]), at 12/23/2019 9:14 AM Narrative 12/23/2019 9:14 AM EDT EXAMINATION: MAMMO SCREENING CAD AND SAM BILATERAL CLINICAL HISTORY: routine screening TECHNIQUE: CC and MLO projections as well as tomography were reviewed. The films were also reviewed with the [employer] Computer Aided Detection System. COMPARISON: Previous studies FINDINGS: There are scattered areas of fibroglandular density. No dominant mass or suspicious microcalcifications. Breasts are symmetric. There is no architectural distortion. Breast density category B. us Minerva Morejon MD IMG MAMMO ORDERABLES Final Res ult * Hepatitis C Antibody (03/22/2019 11:21 AM EST) Hepatitis C Antibody Negative Negative [facility] Blood specimen (specimen) 03/22/2019 11:21 AM EST 03/22/2019 11:22 AM EST Narrative Resulting Agency Comment Spec In Lab us Minerva Morejon MD CHEMISTRY ORDERABLES Final Res ult [facility] [address] [place] [address] * (ABNORMAL) External Pap Smear (06/08/2016 1:20 PM EST) HPV Interpretation NOT DETECTED(Exte rnal Lab) NOT DETECTED [facility] Comment: Sourced from [employer] [facility] Conversion External PAP Smear 06/08/2016 1:20:00 PM; See PanTheryx system for full report(Rod Drawer al Lab) [facility] Comment: TESTS: SP and HPV [...] Please note: Source: OTHER Sourced from [facility] Conversion 06/08/2016 1:20 PM EST us His Sylvie Provider EXTERNAL LAB ORDERABLES Fi nal Result Performing Organization Address [facility] de Phone Number [facility] * (ABNORMAL) HIV Antibody Rapid Test (09/04/2013 10:45 AM EDT) HIV Ab/Ag Rapid NEGATIVE( External Lab) NEGATIVE [facility] Comment: Sourced from [facility] Conversion 09/04/2013 10:4 5 AM EDT us His Sylvie Provider CHEMISTRY ORDERABLES Final Result Performing Organization Address [facility] de Phone Number [facility] RESULT CONVERSION * (ABNORMAL) External Colonoscopy (02/04/2013 11:30 AM EST) External Colonoscopy 02/04/2013 11:30:00 AM - See PanTheryx system for full report(Externa l Lab) [facility] Comment:Sourced from [facility] Conversion 02/04/2013 11:3 0 AM EST us His Slyvie Provider EXTERNAL GI PROCEDURE RESU LT Final Result Performing Organization Address [facility] de Phone Number [facility] RESULT CONVERSION from Last 3 Months or Most Recently Relevant to Health Maintenance Insurance [id number] (Home) [address] [facility] [place] [address] [employer]ERCIAL [employer]IC Advance Directives Documents on File Type Date Recorded Patient Chair Car Attendant Expl anation Personal Chair Car Attendant 11/27/2020 8:06 AM Declan Hugo partner
--- OUTSIDE RECORDS SUMMARY | 2025-02-13 15:04 | XMS_ITS | Encounter Summary ---
Author Organization [facility] Address [address] [facility] [address] [place] [address] Phone Care Team Providers Care Replanting Machine Crew Name Role Phone Karma Hudson [facility] Primary Care Provider [phone] Encounter Details Date Type Department Care Team (Late st Contact Info) Description 10/25/2021 Procedure Pass [address] [place] [address] Social History Tobacco Use Types Packs/Day Years [...] st Contact Info) Description 08/06/2024 Procedure Pass [address] [place] [address] 02/21/2025 1:15 PM EST Appointment [address] [place] [address] Karma Hudson FNP [address] [facility], [address] [place] [address] mar[place] documented as of this encounter Visit Diagnoses Not on filedocumented in this encounter Additional Health Concerns Infection Onset Date Last Indicated Resolved Time CoV-Risk 05/24/2023 05/24/2023 06/04/2023 1:22 AM EST CoV-Risk Comment:Per Ambulatory Triage Form 05/10/2024 05/10/202405/21 1:21 AM EST Assessment Noted Time PHQ-2 Depression Total Score: 2 10/26/19 22 2:25 PM EDT documented as of this encounter Care Teams Replanting Machine Crew Relationship Specialty Start Date End Date Karma Hudson FNP [address] [facility], [address] [place] [address] mar[place] PCP - General Family Medicine 10/08/21 documented as of this encounter Additional Source Comments The information contained in this document represents components of the legal health record. It is not the complete legal health record.[facility]
--- OUTSIDE RECORDS SUMMARY | 2025-02-13 15:04 | XMS_ITS | Encounter Summary ---
Author Organization [facility] Address [address] [place] [address] Care Team Providers Care Telemetry Tech Name Role Phone Minerva Morejon Primary Care Provider Reason for Visit * Reason Onset Date Comments confirm appt 02/15/2021 Encounter Details Date Type Department Care Team (Late st Contact Info) Description 02/15/2021 Telephone [facility] Central Scheduling Department [address] [place] [address] Telephone Intake, Staff confirm appt Social History [...] on filedocumented in this encounter Care Teams Telemetry Tech Relationship Specialty Start Date End Date Minerva Morejon PCP - General Family Medicine 03/02/21 documented as of this encounter
--- OUTSIDE RECORDS SUMMARY | 2025-02-13 15:04 | XMS_ITS | Encounter Summary ---
Author Organization [facility] Address [address] [place] [address] Care Team Providers Care Business Development Coordinator Name Role Phone Minerva Morejon Primary Care Provider [phone] Encounter Details Date Type Department Care Team (Late st Contact Info) Description 11/23/2020 Telephone [facility] Interventional Radiology [address] [place] [address] Mara Guillory RN Social History Tobacco Use Types Packs/Day Years Used Date Smoking Tobacco: Never Assessed Comments Unknown Sex and Gender Information Value Date Recorded Sex Assigned at Female 03/07/2021 12:01 PM EST Legal Sex Female 7:13 AM EDT Gender Identity Female 03/07/2021 12:01 PM EST Sexual Orientation Straight 03/07/2021 12 :01 PM EST documented as of this encounter Functional Status documented as of this encounter Plan of Treatment Not on file documented as of this encounter Visit Diagnoses Not on filedocumented in this encounter Care Teams Business Development Coordinator Relationship Specialty Start Date End Date Minerva Morejon PCP - General Family Medicine 03/02/21 documented as of this encounter
--- OUTSIDE RECORDS SUMMARY | 2025-02-13 15:04 | XMS_ITS | Encounter Summary ---
Author Organization [facility] Address [address] [place] [address] Care Team Providers Care Dental Hygienist Mobile Coordinator Name Role Phone Minerva Morejon Primary Care Provider [phone] Encounter Details Date Type Department Care Team (Late st Contact Info) Description 06/02/2022 Appwizhart Message [facility] HB Revenue Cycle Management [address] [place] [address] Mychart, Generic Provider [facility] [place] [id number] Payment Plan Social History Tobacco Use Types [...] on filedocumented in this encounter Care Teams Dental Hygienist Mobile Coordinator Relationship Specialty Start Date End Date Minerva Morejon PCP - General Family Medicine 03/02/21 documented as of this encounter
--- OUTSIDE RECORDS SUMMARY | 2025-02-13 15:04 | XMS_ITS | Encounter Summary ---
Author Organization [facility] Address [address] [place] [address] Phone Care Team Providers Care Lawn Care Technician Name Role Phone Karma Hudson [facility] Primary Care Provider [phone] Encounter Details Date Type Department Care Team (Late st Contact Info) Description 09/03/2024 Procedure Pass [facility]ovascular And Interventional Radiology [address] [place] [address] Social History Tobacco Use Types Packs/Day Years [...] high school, GED, job training, learning the Nepali language, technical skills, or developing parenting skills)? [...] Contact Info) Description 08/06/2024 Procedure Pass [place] [facility] - [address] [place], [place] [address] 02/21/2025 1:15 PM EST Appointment [address] [place] [address] Karma Hudson FNP [address] [facility], [address] [place] [address] maria [email or web address] documented as of this encounter Visit Diagnoses Not on filedocumented in this encounter Additional Health Concerns Assessment Noted Time PHQ-9 Depression Total Score: 9 07/26/19 24 1:30 PM EDT PHQ-2 Depression Total Score: 4 08/07/19 25 10:49 AM EDT documented as of this encounter Care Teams Lawn Care Technician Relationship Specialty Start Date End Date Karma Hudson FNP [address] [facility], [address] [place] [address] maria [email or web address] PCP - General Family Medicine 10/08/21 documented as of this encounter Additional Source Comments The information contained in this document represents components of the legal health record. It is not the complete legal health record.[facility]
--- OUTSIDE RECORDS SUMMARY | 2025-02-13 15:04 | XMS_ITS | Encounter Summary ---
Author Organization [facility] Address [address] [place] [address] Care Team Providers Care Personal Financial Advisor Name Role Phone Minerva Morejon Primary Care Provider [phone] Reason for Visit * Reason Onset Date Comments COVERAGE 06/07/2021 Encounter Details Date Type Department Care Team (Late st Contact Info) Description 06/07/2021 Telephone [facility] [address] [place] [address] [phone] Telephone Intake, Staff COVERAGE Social History Tobacco [...] for appt on 06/07/2021 called [employer] [phone] spoke with July call ref # [id number] Plan effect 09/15/2020 - [facility] network Per July patient is approved for 1 visit per speciality with a $50.00 Per Managed Care site, Multi Plan / PHCS no referral required States w/logo no ref required Pt is aware Please route your response back to the [facility] Admin Staff Pool. Thank you documented in this encounter Plan of Treatment Not on file documented as of this encounter Visit Diagnoses Not on filedocumented in this encounter Care Teams Personal Financial Advisor Relationship Specialty Start Date End Date Minerva Morejon PCP - General Family Medicine 03/02/21 documented as of this encounter
[2025-02-26 09:13] VITALS: BMI 39.6
--- NOTE | 2025-02-26 10:34 | HO.ANESPROP2 ---
Documented by User: eYsenia Rose NP 03/04/25 12:51 HPI - Anesthesia Eval Consult details Narrative: 64 yr old female for Interior vaginal repair with Transvaginal with Mesh Sling Per August 2024 PCP note, pt had vertigo episode early 2024, seen at [facility] ED, CT head showed old right cerebellar lacunar infarct and small old cortical infarct at the temporoparietal junction . She decline ENT referral. Spoke to pt, she has periodic symptoms, uses prn meclizine. No residual stroke symptoms. Had never followed with neurology. *Request dishcarge summary from ? CVA vs brain surgery at [facility]. COUNT INCLUDES [facility] Active Problems Active Problems: All Active Problems MERYL (stress urinary incontinence, female) (Acute) Vaginal prolapse (Acute) Urinary incontinence (Acute) Chronic pain syndrome (Acute) Radiculopathy, lumbar region (Acute) Disc degeneration, lumbar (Acute) Spondylosis of lumbar region without myelopathy or radiculopathy (Acute) Sacroiliac joint dysfunction of both sides (Acute) Sacroiliitis (Acute) Compression fracture of L4 vertebra (Acute) Past Medical History Medical History Hypoglycemia Numbness Osteoporosis Arthritis Back pain Anemia Hiatal hernia GERD (gastroesophageal reflux disease) Urinary problem Anxiety History of traumatic head injury History of headache Depression SOB (shortness of breath) Elevated cholesterol Rectal cyst Vaginal pessary present CVA (cerebral vascular accident) Hearing loss Thyroid nodule Chronic back pain Depression Elevated cholesterol GERD (gastroesophageal reflux disease) Disc degeneration, lumbar Urinary incontinence Vaginal prolapse Compression fracture of L4 vertebra Surgical History Surgical History History of mandibular surgery Hx of wisdom tooth extraction Hx of esophagogastroduodenoscopy Hx of colonoscopy History of laparoscopic adjustable gastric banding History of nasal surgery H/O brain surgery Social History Social History Alcohol intake: current Alcohol intake frequency: does not drink Patient Tobacco Use Status: Never used Tobacco Have you been hit, kicked, punched, or otherwise hurt by someone within the past year? If so, by whom?: No Are you DNR?: No Advance Directives: No Advance Directives Information Provided: Yes Meds Allergies Allergy/AdvReac Type Severity Reaction Status Date / Time propranolol Allergy Intermediate Swelling Verified 02/26/25 09:16 Home Medications ?Medication ?Instructions ?Recorded ?Confirmed ?Last Taken ?Type aspirin 81 mg tablet,delayed 81 mg PO DAILY 01/22/24 02/26/25 12/03/24 History release (Adult Aspirin Regimen) atorvastatin 80 mg tablet 80 mg PO DAILY 01/22/24 02/26/25 03/03/25 History famotidine 20 mg tablet 20 mg PO DAILY 01/22/24 02/26/25 03/03/25 History (Zantac-360 (famotidine)) albuterol sulfate 90 mcg/actuation 2 puff inhalation Q6H PRN 02/26/25 02/26/25 03/04/24 History aerosol inhaler Shortness Of Breath Or Wheezing venlafaxine 75 mg capsule,extended 75 mg PO DAILY 02/26/25 02/26/25 03/03/25 History release 24 hr cetirizine 10 mg tablet (Zyrtec) 10 mg PO DAILY 03/04/25 03/04/25 03/04/25 History Exam Height,Weight and Vital Signs: Height 5 ft 1 in Weight 95 kg Documented by User: Bailey Alvarez MD 03/04/25 13:56 PMFSH Past Medical History Medical History Hypoglycemia Numbness Osteoporosis Arthritis Back pain Anemia Hiatal hernia GERD (gastroesophageal reflux disease) Urinary problem Anxiety History of traumatic head injury History of headache Depression SOB (shortness of breath) Elevated cholesterol Rectal cyst Vaginal pessary present CVA (cerebral vascular accident) Hearing loss Thyroid nodule Chronic back pain Depression Elevated cholesterol GERD (gastroesophageal reflux disease) Disc degeneration, lumbar Urinary incontinence Vaginal prolapse Compression fracture of L4 vertebra Family History Family history of problems with anesthesia: No Surgical History Surgical History History of mandibular surgery Hx of wisdom tooth extraction Hx of esophagogastroduodenoscopy Hx of colonoscopy History of laparoscopic adjustable gastric banding History of nasal surgery H/O brain surgery History of Problems with Anesthesia: No Social History Social History Alcohol intake: current Alcohol intake frequency: does not drink Patient Tobacco Use Status: Never used Tobacco Have you been hit, kicked, punched, or otherwise hurt by someone within the past year? If so, by whom?: No Are you DNR?: No Advance Directives: No Advance Directives Information Provided: Yes Meds Allergies Allergy/AdvReac Type Severity Reaction Status Date / Time propranolol Allergy Intermediate Swelling Verified 02/26/25 09:16 Home Medications ?Medication ?Instructions ?Recorded ?Confirmed ?Last Taken ?Type aspirin 81 mg tablet,delayed 81 mg PO DAILY 01/22/24 02/26/25 12/03/24 History release (Adult Aspirin Regimen) atorvastatin 80 mg tablet 80 mg PO DAILY 01/22/24 02/26/25 03/03/25 History famotidine 20 mg tablet 20 mg PO DAILY 01/22/24 02/26/25 03/03/25 History (Zantac-360 (famotidine)) albuterol sulfate 90 mcg/actuation 2 puff inhalation Q6H PRN 02/26/25 02/26/25 03/04/24 History aerosol inhaler Shortness Of Breath Or Wheezing venlafaxine 75 mg capsule,extended 75 mg PO DAILY 02/26/25 02/26/25 03/03/25 History release 24 hr cetirizine 10 mg tablet (Zyrtec) 10 mg PO DAILY 03/04/25 03/04/25 03/04/25 History Exam Airway Mallampati Class: II TM Dist: <=3cm Neck ROM: Limited Heart: rrr Lungs: cta Assessment and Plan Assessment Anesthesia Assessment: Anesthesia Plan Discussed and Chart Reviewed Final Anesthetic Review Family History of Problems with Anesthesia: No History of Problems with Anesthesia: No NPO: Yes ASA Class: III Final Preanesthetic Review: No Changes in Pt Med Stat, Meds/Allgs Chart Reviewed, Consent Obtained/Reviewed and Anes Risks/Benef Reviewed Patient Risk: Intermediate Procedure Risk: Intermediate Anesthetic Plan Anesthetic Plan: GA and Agree w/ Assess. and Plan Disposition: Standard PACU
[2025-03-04] VITALS (9 sets, daily range): BP systolic 102–140; BP diastolic 54–96; PULSE 75–88; RESP 12–18; TEMP 36–36.4; O2SAT 93–98; BMI 39.9; BMI 42.2
[2025-03-04] MEDS: Lactated Ringers 1,000 ML 100 ML IVCONT (13:15)
--- NOTE | 2025-03-04 14:05 | MHC.SHP ---
Pre-Procedural Eval Section A - 24 Hr Update-Section A only Date of Service: 03/04/25 The patient is an INPATIENT: No The patient has been examined within 24 hours of the surgical procedure. The History & Physical has been completed within 30 days and I have reviewed it.: Yes Section B - Complete if H&P > 30 days Chief Complaint: Stress incontinence (female) Allergies: Allergies Allergy/AdvReac Type Severity Reaction Status Date / Time propranolol Allergy Intermediate Swelling Verified 02/26/25 09:16 Plan Diagnosis/Plan: Unchanged I have reviewed the history and physical and performed a pertinent physical examination on my patient. No changes have occurred unless specified. Vaginal retropubic sling, anterior vaginal repair. Risks discussed included but not limited to hematuria, infection, recurrent prolapse, urinary retention. Time Spent With Patient Time: Total time managing care of this patient today ____ minutes.
--- NOTE | 2025-03-04 14:17 | P.OP_ITS ---
Operative Note Operative Note Date of Service: 03/04/25 Narrative: Preop diagnosis: Stress urinary incontinence, cystocele Postop diagnosis: Stress urinary incontinence cystocele Procedure: Pubovaginal sling with mesh, cystoscopy Anterior vaginal colporrhaphy Surgeon: Dr. Aleta Ramirez Anesthesia: General Procedure: The patient was brought into the operating room placed on the OR table in supine position general anesthesia was instituted the patient was intubated. The patient was placed in lithotomy position prepped and draped in the usual sterile fashion. A time-out was done per protocol. Antibiotics confirmed. A weighted vaginal speculum along with a [employer] retractor was used to obtain adequate visualization of the introitus. An 18 fr solano was placed. A marking pen was used to calvin the bladder neck. 1% lidocaine with epinephine was infiltrated into the anterior vaginal wall. A longitudinal incision was made from the bladder neck towards the cervix. The incision was opened extending to the pubocervical fascia. The cystocele defect was repaired with 2-0 and 0 -vicryl with interrupted fashion for anterior vaginal repair. Attention was then taken to the mid-urethra. An incision was used extended laterally towards the retropubic space. Attention was taken at the pubic bone and a small incision was made 2 cm lateral to the midline of the pubic bone on the right and left side. The trochar for the [facility] was passed behind the pubic bone on the right and left side with finger guidance vaginally. Cystoscopy was done, there was no injury to the bladder and there was efflux of urine from both ureteral orifices. The cystoscope was removed and the solano was replaced. The sling was attached to each trochar and brought retrograde to the abdominal side. The sling was adjusted without t ension, the redundant sling was cut at the abdominal side. The vaginal incision was copiously irrigated. The incision was closed with 2-0 Vicryl, the Solano was left to gravity drainage. The pubic incisions were closed with 4 0 Monocryl. EBL: 50 mL Complications: None Drains: 18 [place] Solano, vaginal pack
--- NOTE | 2025-03-04 19:26 | PHA.MEDREC ---
Pharmacy Consult ? Medication Reconciliation Pharmacy has reviewed the medication reconciliation done by nursing and also spoke to patient to confirm medication list. Patient confirmed she is still taking atorvastatin 80 mg daily (even though last pharmacy claim was on 03/14/24), she takes cetirizine 10 mg and venlafaxine ER 75 mg at bedtime. She stopped taking aspirin 81 mg last week due to this surgery.
[2025-03-05 00:35] VITALS: BP 117/56; PULSE 75; RESP 16; TEMP 36.5; O2SAT 94
[2025-03-05 03:58] VITALS: BP 127/63; PULSE 76; RESP 16; TEMP 36.4; O2SAT 95
[2025-03-05] MEDS: oxyCODONE HCl Immed Release 5 MG TABLET PO (04:08)
[2025-03-05] MEDS: Lactated Ringers 1,000 ML 100 ML IVCONT (04:09)
[2025-03-05 07:51] VITALS: BP 131/65; PULSE 78; RESP 15; TEMP 36.1; O2SAT 92
--- NOTE | 2025-03-05 09:30 | HO.POSTANES ---
Post Anesthesia Evaluation Post Anesthesia Evaluation Date of Service: 03/05/25 Vital Signs: Vital Signs Temp Pulse Resp BP Pulse Ox O2 Del Method O2 Flow Rate 03/05/25 07:51 96.9 F 78 15 131/65 92 Nasal Cannula 2 03/05/25 03:58 97.5 F 76 16 127/63 95 Nasal Cannula 2 03/05/25 00:35 97.7 F 75 16 117/56 L 94 Nasal Cannula 2 Anesthesia: General Mental Status: Awake Pain Control: Satisfactory Nausea/Vomiting: None Hydration: Adequate Anesthesia-Related Issues: No Anes. Related Issues
--- NOTE | 2025-03-05 09:44 | PC.NURSE ---
9:40am patient voided 1mml of pink urine post solano removal. PVR 229ml, will continue to monitor voiding until back to baseline
--- NOTE | 2025-03-05 09:45 | PC.NURSE ---
09:40am patient voided 100ml of pink urine post solano removal at 6am. Post void residual was 229ml. Will continue to monitor until voiding returns to baseline
--- NOTE | 2025-03-05 13:08 | PM.DS ---
DS: Providers Provider Primary care physician: Karma Hudson NP Physical Exam Vital Signs: Vital Signs: Last Vital Signs Temp 96.9 F 03/05/25 07:51 Pulse 78 03/05/25 07:51 Resp 15 03/05/25 07:51 BP 131/65 03/05/25 07:51 Pulse Ox 92 03/05/25 07:51 O2 Del Method Nasal Cannula 03/05/25 07:51 O2 Flow Rate 2 03/05/25 07:51 BMI result Body Mass Index 42.2 DS: Data Data Completed and Pending Labs on day of discharge: Preliminary micro results at discharge 03/04/25 15:17 Urine Culture - Preliminary Urine Catheterized - Straight Catheter No growth to date. Discharge Plan Discharge Patient Disposition: Home, Self-Care Referrals: Karma Hudson NP [Primary Care Provider, Medical] - 1 Week Discharge Medications: New oxycodone 5 mg tablet 5 mg PO .[id number] PRN (Reason: pain) Qty: 8 0RF Rx Instructions: Partial Fill upon patient request. cefuroxime axetil 500 mg tablet 500 mg PO Q12H 5 Days Qty: 10 0RF Continued venlafaxine 75 mg capsule,extended release 24hr 75 mg PO BEDTIME albuterol sulfate 90 mcg/actuation HFA aerosol inhaler 2 puff inhalation Q6H PRN (Reason: Shortness Of Breath Or Wheezing) cetirizine [Zyrtec] 10 mg Tablet 10 mg PO BEDTIME atorvastatin 80 mg tablet 80 mg PO DAILY famotidine [Zantac-360 (famotidine)] 20 mg tablet 20 mg PO DAILY Held aspirin [Adult Aspirin Regimen] 81 mg tablet,delayed release (DR/EC) 81 mg PO DAILY Hold Instructions: Resume on 03/14/25. Discharge Orders: Discharge Order (Routine); Ordered 03/05/25 Ordered By: Aleta Ramirez Diet: Advance to usual diet Activity on Discharge: No heavy lifting Activity Restrictions/Additional Instructions: Resume aspirin in 10 days, Pt has fu with Urology nurse on 03/11/25 for solano removal and voiding trial Print Language: Hungarian
--- NOTE | 2025-03-05 14:04 | MHC.CM.PN ---
Patient dc'd home self care prior to CM assessment.
== END 2025-03-05 14:00 | disposition home or self-care (01) ==
LOC: HO.SSS 14:07 → HO.S3 17:59
PROVIDERS: PCP Nurse Practitioner Family; Visit Provider Urology
PROC: (CPT 57288; principal; 2025-03-04 14:00)
DX: N39.46 Mixed incontinence (principal); N81.89 Other female genital prolapse; N32.89 Other specified disorders of bladder; N36.42 Intrinsic sphincter deficiency (ISD); N81.10 Cystocele, unspecified; Z96.0 Presence of urogenital implants; Z79.82 Long term (current) use of aspirin; Z79.899 Other long term (current) drug therapy; Z88.8 Allergy status to other drugs, medicaments and biological substances
CPT/HCPCS: 57288; 57267; 57240; 87086; C1771; J0131; J0690; J1100; J2004; J2405; J2704; J3010; J7120

== ENCOUNTER → 2025-03-04 11:59 | Outpatient (BNV) | payer OTHER, SELFPAY | PROVIDERS: PCP Nurse Practitioner Family; Visit Provider Urology | DX: N39.3 Stress incontinence (female) (male) (principal); N81.10 Cystocele, unspecified | CPT/HCPCS: 57240; 57267; 57288 ==

== ENCOUNTER → 2025-03-11 10:30 | Outpatient (BNVA) | payer OTHER, SELFPAY | PROVIDERS: PCP Nurse Practitioner Family; Visit Provider Urology | DX: N39.3 Stress incontinence (female) (male) (principal) | CPT/HCPCS: 51700; 51798 ==